=== PATIENT | female | born 1950 | race American Indian/Alaskan Native ===

== ENCOUNTER 2018-09-16 17:01 | Inpatient (IN) | payer MEDICARE ==
[2018-09-16] MEDS ORDERED: NACL 0.9% 1000 ML 1,000 ML IV ONE ×3 (17:05→19:07)
[2018-09-16] MEDS ORDERED: TYLENOL PO STA (17:34)
--- NOTE | 2018-09-16 17:36 | Emergency Department Report ---
ED General Adult HPI - General Chief complaint: Nausea/Vomiting/Diarrhea Stated complaint: NAUSEA/VOMITING/DIARRHEA Time Seen by Provider: 09/16/18 17:27 Source: EMS (ems notes not available at time of chart dictation), RN notes reviewed, old records reviewed Mode of arrival: Stretcher Limitations: Other (nonverbal and is a poor historian) - History of Present Illness Initial comments: This is a 68-year-old female who is not known to this provider previously. Apparently, the patient has a history of stroke. She is apparently nonverbal. Apparently, her home child care provider had indicated that the patient has been having increased weakness, with nausea, vomiting, diarrhea for 2 days. The patient is nonverbal and not able to describe exacerbating or relieving factors. The caregiver is not physically present at this point in time, and is not available for corroborating information currently. Patient nonverbal, not able to describe qualitative nature of her symptoms, exacerbating, radiation, relieving factors. -: unknown Severity scale (0 -10): 0 Quality: other Consistency: other Improves with: other Worsens with: other Associated Symptoms: malaise, nausea/vomiting, weakness - Related Data Home Medications Medication Instructions Recorded Confirmed Last Taken Unobtainable 09/16/18 09/16/18 Unknown Allergies Allergy/AdvReac Type Severity Reaction Status Date / Time No Known Allergies Allergy Unverified 09/16/18 17:05 ED Review of Systems ROS: Stated complaint: NAUSEA/VOMITING/DIARRHEA Other details as noted in HPI Comment: Unobtainable due to pts medical conditions ED Past Medical Hx - Past Medical History Previous Medical History?: Yes Hx Hypertension: Yes Hx CVA: Yes Hx COPD: Yes Hx Dementia: Yes (nonverbal) - Surgical History Past Surgical History?: No Additional Surgical History: unknown - Medications Home Medications: Home Medications Medication Instructions Recorded Confirmed Last Taken Type Unobtainable 09/16/18 09/16/18 Unknown History ED Physical Exam - General Limitations: Physical Limitation, Other General appearance: in no apparent distress - Head Head exam: Present: atraumatic, normocephalic - Eye Eye exam: Present: normal appearance - ENT ENT exam: Present: mucous membranes dry - Neck Neck exam: Present: normal inspection, full ROM. Absent: tenderness, meningi smus - Respiratory Respiratory exam: Present: normal lung sounds bilaterally. Absent: respiratory distress, wheezes, rales, rhonchi, stridor, chest wall tenderness - Cardiovascular Cardiovascular Exam: Present: normal rhythm, tachycardia, normal heart sounds. Absent: systolic murmur, diastolic murmur, rubs, gallop - GI/Abdominal GI/Abdominal exam: Present: soft. Absent: distended, tenderness, guarding, rebound, rigid, pulsatile mass - Rectal Rectal exam: Present: other (chaperoned by nurse Radha Sanders). Absent: normal inspection (on the right lateral gluteus cheek, there is an area of erythema, and questionable vesicular lesion. Compartment soft.) - Extremities Exam Extremities exam: Present: normal inspection, full ROM, other (2+ pulses noted in the bilateral upper, lower extremities. Compartments soft. No long bony tenderness. The pelvis is stable.). Absent: pedal edema, calf tenderness - Back Exam Back exam: Present: normal inspection. Absent: tenderness, CVA tenderness (R), paraspinal tenderness, vertebral tenderness - Neurological Exam Neurological exam: Present: alert, other (nonverbal. Follows commands. Moving right arm, right leg spontaneously. Unable to complete detailed neurologic examination secondary to patient's inability to participate, cooperate with examination.) - Psychiatric Psychiatric exam: Present: normal affect, normal mood - Skin Skin exam: Present: warm ED Course Vital Signs 09/16/18 09/16/18 09/16/18 17:17 17:20 17:40 Temperature 100.4 F H Pulse Rate 111 H Respiratory 18 18 Rate Blood Pressure 124/66 [Right] O2 Sat by Pulse 98 99 Oximetry 09/16/18 18:30 Temperature Pulse Rate 110 H Respiratory 14 Rate Blood Pressure 124/62 [Right] O2 Sat by Pulse 98 Oximetry - Reevaluation(s) Reevaluation #1: 09/16/18 18:27 Differential diagnosis, including not limited to: Enteritis, pneumonia, urinary tract infection, dehydration, electrolyte derangement, zoster Assessment and plan: 68-year-old female, nonverbal, found to be tachycardic, with a low-grade rectal fever of 100.4. Urinalysis suggests urinary tract infection. May have a component of zoster on the right gluteal cheek. This is isolated. It does not have multiple dermatomal distributions. IV fluids, acetaminophen, ceftriaxone ordered. Screening laboratory studies, x-ray of the chest, noncontrast CT scan of the abdomen and pelvis is pending at this time. Reevaluation #2: 09/16/18 18:47 CT scan suggests left lower lobe pneumonia. Given multiple foci of infection, tachycardia, fever, we will admit the patient to the medical service for intravenous antibiotics once her initial laboratory studies have resulted. Blood cultures ordered, additional antibiotics, azithromycin, have been ordered. Reevaluation #3: 09/16/18 19:08 Laboratory studies demonstrated a lactic acidosis, myositis, acute renal insufficiency. Patient meeting sepsis criteria. Hospital physician, Dr. James, paged to arrange admission. Reevaluation #4: 09/16/18 19:32 Dr James to admit ED Medical Decision Making - Lab Data Result diagrams: 09/16/18 18:37 09/16/18 18:37 Vital Signs 09/16/18 09/16/18 09/16/18 17:17 17:20 17:40 Temperature 100.4 F H Pulse Rate 111 H Respiratory 18 18 Rate Blood Pressure 124/66 [Right] O2 Sat by Pulse 98 99 Oximetry Lab Results 09/16/18 Range/Units 17:40 Urine Color Lu (Yellow) Urine Turbidity Cloudy (Clear) Urine pH 5.0 (5.0-7.0) Ur Specific [place] 1.019 (1.003-1.030) Urine Protein 30 mg/dl (Negative) mg/dL Urine Glucose (UA) Neg (Negative) mg/dL Urine Ketones Neg (Negative) mg/dL Urine Blood Sm (Negative) Urine Nitrite Neg (Negative) Urine Bilirubin Neg (Negative) Urine Urobilinogen 4.0 (<2.0) mg/dL Ur Leukocyte Esterase Mod (Negative) Urine WBC (Auto) 84.0 H (0.0-6.0) /HPF Urine RBC (Auto) 19.0 (0.0-6.0) /HPF U Epithel Cells (Auto) 5.0 (0-13.0) /HPF Urine Bacteria (Auto) 3+ (Negative) /HPF Urine Mucus 3+ /HPF - Radiology Data Radiology results: pending, report reviewed, image reviewed interpreted by me: X-ray of the chest shows left lower lobe pneumonia. Referring Physician: SHAWANDA READ Patient Name: DONITA BELTRAN Date of : 1950 Sex: Female Report Date: 2018-09-16 Report Status: Finalized [facility] [address] [place] [address] Cat Scan Report Signed Patient: DONITA BELTRAN MR#: [id number] : 1950 Acct:[id number] Age/Sex: 68 / F ADM Date: 09/16/18 Loc: ED Attending Dr: Ordering Physician: SHAWANDA READ MD Date of Service: 09/16/18 Procedure(s): CT abdomen pelvis wo con Accession Number(s): [id number] cc: SHAWANDA READ MD FINAL REPORT EXAM: CT ABDOMEN PELVIS WO CON HISTORY: fever n/v/d TECHNIQUE: CT examination of the ABDOMEN without IV contrast CT examination of the PELVIS without IV contrast PRIORS: None. FINDINGS: The exam is limited from a paucity of natural intra-abdominal fat, and lack of oral/IV contrast, to separate adjacent organs and structures. The ureters are largely obscured by adjacent soft tissues. Intestinal loops are also difficult to visualize separately.Patient arm in the diagnostic [id number] degrades image quality and limits the examination. Lung base pulmonary emphysema. Large dense consolidation is nonspecific with air bronchograms in the left lower lobe. This may be atelectasis and/or pneumonia. Degenerative change in the regional skeleton. No acute fracture. Normal noncontrast appearance of the liver, visible portion of pancreas, and spleen. Large calcified gallstone in gallbladder lumen. No definite other CT visualization of biliary abnormality. Visible portion of adrenals appear enlarged bilaterally possibly reflecting nonspecific hypertrophy, more on the left. Normal caliber abdominal aorta with moderate to severe calcified atherosclerotic plaque. Normal caliber visible portion of IVC. Normal-appearing right kidney with slight atherosclerotic calcified plaque in the right renal hilus. No right hydronephrosis or right renal calculus. Right ureter obscured. Nonspecific, smoothly marginated, low density, simple appearing left renal lesions are statistically most likely cysts. Nonspecific slight hydronephrosis. Multiple calcifications in left renal hilus may be atherosclerotic. A small renal pelvic calcification cannot be excluded. Left ureter obscured by adjacent anatomy. Abdominal wall appears intact without hernia. No visible retroperitoneal adenopathy or mesenteric mass. Nonspecific distention of the stomach without definite focal lesion. No definite small bowel distention in the abdomen and pelvis. No definite pelvic free fluid. Nonspecific fat stranding in the pelvic mesentery further limits the evaluation and may reflect anasarca. Nonspecific distention of the urinary bladder. Normal-appearing uterus and adnexa. Slight diverticulosis proximal sigmoid and descending colon with slight fat stranding adjacent to the descending colon which may reflect mild diverticulitis. There is also trace free fluid in the left pericolic gutter. Nonspecific prominence of gas and stool in the rectum as well as gas in the transverse colon. This may reflect paralytic ileus possibly with mild constipation. No definite evidence of free air or gross ascites. Normal-appearing cecum and terminal ileum. Appendix not visualized. IMPRESSION: Severely limited examination by low intra-abdominal fat, lack of IV and oral contrast, and arms at the patient's side Slight diverticulosis descending and sigmoid colon. Nonspecific fat stranding and trace free fluid adjacent to the descending colon may reflect mild diverticulitis Lung base emphysema. Large consolidation left lower lobe may be atelectasis and/or pneumonia Large calcified gallstone in gallbladder lumen Suggestion of adrenal hypertrophy, more on the left Left renal hilar calcifications may be atherosclerotic. Small pelvic calcification not excluded. Suggestion of nonspecific slight left hydronephrosis Nonspecific gastric distention may refl ect outlet obstruction and/or gastroparesis Fat stranding in the pelvic mesentery may be scarring or peritonitis. Differential includes anasarca Nondistention of the urinary bladder Nonspecific gas filled prominence of stool in the rectum and transverse colon may reflect paralytic ileus with mild co nstipation Transcribed By: BAL Dictated By: YANIV TAPIA MD Electronically Authenticated By: YANIV TAPIA MD Signed Date/Time: 09/16/18 7982 Critical care attestation.: If time is entered above; I have spent that time in minutes in the direct care of this critically ill patient, excluding procedure time. ED Disposition Clinical Impression: Sepsis Qualifiers: Sepsis type: sepsis due to unspecified organism Qualified Code(s): A41.9 - Sepsis, unspecified organism UTI (urinary tract infection) Qualifiers: Urinary tract infection type: site unspecified Hematuria presence: without hematuria Qualified Code(s): N39.0 - Urinary tract infection, site not specified Pneumonia Qualifiers: Pneumonia type: due to unspecified organism Laterality: left Lung location: lower lobe of lung Qualified Code(s): J18.1 - Lobar pneumonia, unspecified organ ism Disposition: DC-09 OP ADMIT IP TO THIS HOSP Is pt being admited?: Yes Condition: Fair Instructions: Bacterial Pneumonia (ED) [facility] Care [facility] - 3-5 Days
[2018-09-16 18:03] LABS: Bacteria,Urine 3+ /HPF (Negative); Bilirubin,Urine NEG (Negative); Blood,Urine SM (Negative); Color,Urine Amber (Yellow); Mucus,Urine 3+ /HPF
[2018-09-16] MEDS ORDERED: ROCEPHIN/NS 1 GM/50 ML 1 GM/50 ML BAG IV ONE (18:23)
--- NOTE | 2018-09-16 18:44 | Cat Scan Report ---
FINAL REPORT EXAM: CT ABDOMEN PELVIS WO CON HISTORY: fever n/v/d TECHNIQUE: CT examination of the ABDOMEN without IV contrast CT examination of the PELVIS without IV contrast PRIORS: None. FINDINGS: The exam is limited from a paucity of natural intra-abdominal fat, and lack of oral/IV contrast, to s eparate adjacent organs and structures. The ureters are largely obscured by adjacent soft tissues. Intestinal loops are also difficult to visualize separately.Patient arm in the diagnostic field-of-vi ew degrades image quality and limits the examination. Lung base pulmonary emphysema. Large dense consolidation is nonspecific with air bronchograms in the left lower lobe. This may be atelectasis and/or pneumonia. Degenerative change in the regional skeleton. No acute fracture. Normal noncontrast appearance of the liver, visible portion of pancreas, and spleen. Large calcified gallstone in gallbladder lumen. No definite other CT visualization of biliary abnorma lity. Visible portion of adrenals appear enlarged bilaterally possibly reflecting nonspecific hypertrophy, more on the left. Normal caliber abdominal aorta with moderate to severe calcified atherosclerotic plaque. Normal calib er visible portion of IVC. Normal-appearing right kidney with slight atherosclerotic calcified plaque in the right renal hilus. No right hydronephrosis or right renal calculus. Right ureter obscured. Nonspecific, smoothly marginated, low density, simple appearing left renal lesions are statistically most likely cysts. Nonspecific slight hydronephrosis. Multiple calcifications in left renal hilus may be atherosclerotic. A small renal pelvic calcification cannot be excluded. Left ureter obscured by a djacent anatomy. Abdominal wall appears intact without hernia. No visible retroperitoneal adenopathy or mesenteric mas s. Nonspecific distention of the stomach without definite focal lesion. No definite small bowel distention in the abdomen and pelvis. No definite pelvic free fluid. Nonspecific fat stranding in the pelvic mesentery further limits the e valuation and may reflect anasarca. Nonspecific distention of the urinary bladder. Normal-appearing uterus and adnexa. Slight diverticulosis proximal sigmoid and descending colon with slight fat stranding adjacent to the descending colon which may reflect mild diverticulitis. There is also trace free fluid in the left p ericolic gutter. Nonspecific prominence of gas and stool in the rectum as well as gas in the transverse colon. This ma y reflect paralytic ileus possibly with mild constipation. No definite evidence of free air or gross ascites. Normal-appearing cecum and terminal ileum. Appendi x not visualized. IMPRESSION: Severely limited examination by low intra-abdominal fat, lack of IV and oral contrast, and arms at th e patient's side Slight diverticulosis descending and sigmoid colon. Nonspecific fat stranding and trace free fluid ad jacent to the descending colon may reflect mild diverticulitis Lung base emphysema. Large consolidation left lower lobe may be atelectasis and/or pneumonia Large calcified gallstone in gallbladder lumen Suggestion of adrenal hypertrophy, more on the left Left renal hilar calcifications may be atherosclerotic. Small pelvic calcification not excluded. Sugg estion of nonspecific slight left hydronephrosis Nonspecific gastric distention may reflect outlet obstruction and/or gastroparesis Fat stranding in the pelvic mesentery may be scarring or peritonitis. Differential includes anasarca Nondistention of the urinary bladder Nonspecific gas filled prominence of stool in the rectum and transverse colon may reflect paralytic i leus with mild constipation
[2018-09-16 18:48] LABS: Hematocrit 49.1 % (30.3-42.9); Hemoglobin 15.5 gm/dl (10.1-14.3); Mean Corpuscular HGB Conc 32 % (30-34); Mean Corpuscular Volume 83 fl (79-97); Platelet Count 197 K/mm3 (140-440); Red Blood Count 5.89 M/mm3 (3.65-5.03); Red Cell Distribution Width 14.8 % (13.2-15.2)
[2018-09-16] MEDS ORDERED: TYLENOL PR ONE ×2 (18:57→18:59)
[2018-09-16 19:03] LABS: Albumin 2.6 g/dL (3.9-5)
[2018-09-16 19:25] LABS: Total Cells Counted 100
[2018-09-16 19:26] LABS: Basophils % (Manual) 0 % (0.0-1.8); Eosinophils % (Manual) 0 % (0.0-4.3); Myelocytes # (Manual) 0.9 K/mm3
[2018-09-16 19:27] LABS: Anisocytosis 1+; Ovalocytes Few; Platelet Estimate Consistent w Auto; Poikilocytosis 1+; Target Cells Few
[2018-09-16] MEDS ORDERED: ZITHROMAX 500 MG in NACL 0.9% 250ML 250 ML IV ONE (19:47)
--- NOTE | 2018-09-16 19:54 | XRay Report ---
FINAL REPORT EXAM: XR CHEST 1V AP HISTORY: fever n/v/d TECHNIQUE: AP portable view of the chest. PRIORS: None. FINDINGS: There is atherosclerotic calcification in the thoracic aorta. Otherwise the cardiomediastinal silhoue tte appears normal. There is a left lower lobe airspace infiltrate and blunting of the left costophre joaquim angle. There is thoracic spondylosis with multiple bridging syndesmophytes. IMPRESSION: Left lower lobe airspace infiltrate consistent with pneumonia. Likely small pleural effusion.
--- NOTE | 2018-09-17 06:47 | Event Note ---
Date: 09/16/18 See dictated H/p in reports Sepsis PNA UTI
[2018-09-17] MEDS ORDERED: DILAUDID IV PRN (06:54)
[2018-09-17] MEDS ORDERED: TYLENOL PO PRN (06:54)
[2018-09-17] MEDS ORDERED: SODIUM CHLORIDE FLUSH SYRINGE 10 ML IV PRN (06:54)
[2018-09-17] MEDS ORDERED: ZOFRAN IV PRN (06:54)
[2018-09-17] MEDS ORDERED: D5/0.45NS 1,000 ML IV SCH (07:00)
[2018-09-17] MEDS ORDERED: D5NS 1,000 ML IV SCH (07:00)
--- NOTE | 2018-09-17 07:27 | History and Physical Report ---
CHIEF COMPLAINT: Increased weakness with nausea, vomiting, and diarrhea for 2 days. HISTORY OF PRESENT ILLNESS: A 68-year-old with cerebrovascular accident resulting in aphasia, brought in by software team leader for increasing weakness, nausea, vomiting, and diarrhea of 2 days' duration. The patient is not able to give much history. The patient has generalized weakness and not to her baseline, being alert and oriented x 2. PAST MEDICAL HISTORY: Significant for hypertension and cerebrovascular accident, COPD, and dementia. PAST SURGICAL HISTORY: Not known. FAMILY HISTORY: Unavailable. SOCIAL HISTORY: Does not smoke. No alcohol, no recreational drugs. REVIEW OF SYSTEMS: Significant for generalized weakness and more lethargic. Otherwise, review of systems negative. PHYSICAL EXAMINATION: GENERAL: Elderly female, alert, lethargic. VITAL SIGNS: Pulse is 111, temperature is 100.4, respirations are 18, blood pressure 124/69. HEENT: Unremarkable. NECK: Supple, no lymphadenopathy, no thyromegaly. LUNGS: Scattered rhonchi bilaterally. CARDIOVASCULAR: S1, S2 heard. No gallop, no murmur, no rub. Apical impulse in left fifth intercostal space and midclavicular line. ABDOMEN: Soft and benign. No hepatosplenomegaly. No guarding, no rigidity. Hernial orifices are normal. EXTREMITIES: Good pedal pulses. No pedal edema. LABORATORY DATA: Significant for white count of 22,700, H and H is 15.5 and 49.1, platelet count is 197,000. Lactic acid is 5.2 and 3.9. Sodium is 147, potassium 4.5, BUN and creatinine is 46 and 1.6. Urine shows WBC of 84. Abdominal CAT scan shows slight diverticulosis, lung base emphysema, large consolidation left lower lobe, which may be atelectasis versus pneumonia, large calcified gallstone. Chest x-ray, left lower lobe pneumonia. Labs are significant for white count of 22,700, H and H of 15.5 and 49.1. BUN and creatinine of 46 and 1.6, sodium of 147. Total CK is 1686. Urine WBC 84. ASSESSMENT AND PLAN: 1. Sepsis secondary to pneumonia and urinary tract infection. The patient is not hypotensive. Lactic acid is high. We will treat the sepsis. The patient initiated on ceftriaxone and Zithromax for covering for pneumonia and the urinary tract infection. 2. Hypernatremia. IV fluids. 3. Left lower lobe pneumonia. The patient initiated on IV antibiotics. 4. Acute kidney injury, possible vasomotor nephropathy. IV fluids and monitor creatinine. 5. Deep venous thrombosis prophylaxis, Lovenox 30 mg subcutaneous daily. JOB# [id number] AL/FRANCHESKA MTDD
[2018-09-17 07:45] LABS: Hematocrit 40.6 % (30.3-42.9); Hemoglobin 13.2 gm/dl (10.1-14.3); Mean Corpuscular HGB Conc 33 % (30-34); Mean Corpuscular Volume 82 fl (79-97); Platelet Count 190 K/mm3 (140-440); Red Blood Count 4.97 M/mm3 (3.65-5.03); Red Cell Distribution Width 14.8 % (13.2-15.2)
[2018-09-17 08:06] LABS: Calcium 8.5 mg/dL (8.4-10.2)
[2018-09-17 08:27] LABS: Basophils % (Manual) 0 % (0.0-1.8); Eosinophils % (Manual) 0 % (0.0-4.3); Total Cells Counted 100
[2018-09-17 08:30] LABS: Anisocytosis 1+; Dohle Bodies 1+; Ovalocytes Few; Platelet Estimate Consistent w Auto; Poikilocytosis 1+; Target Cells Few; Toxic Vacuolation Few
[2018-09-17] MEDS: ROCEPHIN/NS 2 GM/100 ML 2 GM/100 ML BAG IV SCH (08:55)
[2018-09-17] MEDS: PEPCID PO SCH ×2 (08:57→10:00)
[2018-09-17] MEDS: ZITHROMAX 500 MG in NACL 0.9% 250ML 250 ML IV SCH ×2 (08:57→10:00)
--- NOTE | 2018-09-17 08:57 | Progress Note ---
Assessment and Plan Assessment and plan: Per Admission record patient is a 68-year-old male with history of CVA and resultant aphasia who presented with increased weakness nausea vomiting and diarrhea for 2 days duration was noted to have acute cystitis and left lower lobe pneumonia with sepsis and admitted for same reason. Severe sepsis Acute cystitis Nausea/vomiting ?acute gastroenteritis Left lower lobe pneumonia- Left large consolidation Emphysema Aphasia muscle result of prior CVA Acute kidney injury secondary to visible due to nephropathy Hypernatremia ?Ileus Severe Protien malnutrition Diverticulosis ?Diverticulitis Large Calcified Gallstone Mild left Hydronephrosis Rhabdomylysis OSTEOPENIA Plan Continue supportive care Obtain xray of left hip to ensure no fracture Will ask surgery evaluation in regards to gallstone and illeus in the setting of sepsis Monitor Urine output and awit urine culture AM LABS, including creatinine kinase And sodium level calcium and vitamin D on discharge 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 GENERAL: The patient appeared cachetic and very lathergic appearing. Vital sig ns as documented. HEAD: No signs of head trauma. EYES: Pupils are equal. Extraocular motions intact. EARS: Hearing grossly intact. MOUTH: Oropharynx is normal. NECK: No adenopathy, no JVD. CHEST: Chest with clear breath sounds bilaterally. No wheezes, rales, or rhonchi. CARDIAC: Regular rate and rhythm. S1 and S2, without murmurs, gallops, or rubs. VASCULAR: No Edema. Peripheral pulses normal and equal in all extremities. ABDOMEN: Soft, without detectable tenderness. No sign of distention. No rebound or guarding, and no masses palpated. Bowel Sounds normal. MUSCULOSKELETAL: Good range of motion of all major joints. Extremities without clubbing, cyanosis or edema. NEUROLOGIC EXAM: Alert and oriented x 3. No focal sensory or strength deficits. Non verbal but mouthing words. PSYCHIATRIC: Mood normal. SKIN: LEFT HIP ERYTHEMA. - Constitutional Vitals: Temp Pulse Resp BP Pulse Ox 99.9 F H 122 H 20 121/75 93 09/17/18 07:47 09/17/18 07:47 09/17/18 07:47 09/17/18 07:47 09/17/18 07:47 Results - Labs CBC & Chem 7: 09/17/18 07:27 09/17/18 14:27 Labs: Laboratory Last Values WBC 26.5 K/mm3 (4.5-11.0) H 09/17/18 07:27 RBC 4.97 M/mm3 (3.65-5.03) 09/17/18 07:27 Hgb 13.2 gm/dl (10.1-14.3) 09/17/18 07:27 Hct 40.6 % (30.3-42.9) D 09/17/18 07:27 MCV 82 fl (79-97) 09/17/18 07:27 MCH 27 pg (28-32) L 09/17/18 07:27 MCHC 33 % (30-34) 09/17/18 07:27 RDW 14.8 % (13.2-15.2) 09/17/18 07:27 Plt Count 190 K/mm3 (140-440) 09/17/18 07:27 Add Manual Diff Complete 09/17/18 07:27 Total Counted 100 09/17/18 07:27 Seg Neutrophils % Janitor And Cleaner 09/17/18 07:27 Seg Neuts % (Manual) 89.0 % (40.0-70.0) H 09/17/18 07:27 Band Neutrophils % 0 % 09/17/18 07:27 Lymphocytes % (Manual) 7.0 % (13.4-35.0) L 09/17/18 07:27 Reactive Lymphs % (Man) 0 % 09/17/18 07:27 Monocytes % (Manual) 4.0 % (0.0-7.3) 09/17/18 07:27 Eosinophils % (Manual) 0 % (0.0-4.3) 09/17/18 07:27 Basophils % (Manual) 0 % (0.0-1.8) 09/17/18 07:27 Metamyelocytes % 0 % 09/17/18 07:27 Myelocytes % 0 % 09/17/18 07:27 Promyelocytes % 0 % 09/17/18 07:27 Blast Cells % 0 % 09/17/18 07:27 Nucleated RBC % Not Reportable 09/17/18 07:27 Seg Neutrophils # Man 23.6 K/mm3 (1.8-7.7) H 09/17/18 07:27 Band Neutrophils # 0.0 K/mm3 09/17/18 07:27 Lymphocytes # (Manual) 1.9 K/mm3 (1.2-5.4) 09/17/18 07:27 Abs React Lymphs (Man) 0.0 K/mm3 09/17/18 07:27 Monocytes # (Manual) 1.1 K/mm3 (0.0-0.8) H 09/17/18 07:27 Eosinophils # (Manual) 0.0 K/mm3 (0.0-0.4) 09/17/18 07:27 Basophils # (Manual) 0.0 K/mm3 (0.0-0.1) 09/17/18 07:27 Metamyelocytes # 0.0 K/mm3 09/17/18 07:27 Myelocytes # 0.0 K/mm3 09/17/18 07:27 Promyelocytes # 0.0 K/mm3 09/17/18 07:27 Blast Cells # 0.0 K/mm3 09/17/18 07:27 WBC Morphology Not Reportable 09/17/18 07:27 Hypersegmented Neuts Not Reportable 09/17/18 07:27 Hyposegmented Neuts Not Reportable 09/17/18 07:27 Hypogranular Neuts Not Reportable 09/17/18 07:27 Smudge Cells Not Reportable 09/17/18 07:27 Toxic Granulation Not Reportable 09/17/18 07:27 Toxic Vacuolation Few 09/17/18 07:27 Dohle Bodies 1+ 09/17/18 07:27 Pelger-Huet Anomaly Not Reportable 09/17/18 07:27 Martha Rods Not Reportable 09/17/18 07:27 Platelet Estimate Consistent w auto 09/17/18 07:27 Clumped Platelets Not Reportable 09/17/18 07:27 Plt Clumps, EDTA Not Reportable 09/17/18 07:27 Large Platelets Not Reportable 09/17/18 07:27 Giant Platelets Not Reportable 09/17/18 07:27 Platelet Satelliting Not Reportable 09/17/18 07:27 Plt Morphology Comment Not Reportable 09/17/18 07:27 RBC Morphology Not Reportable 09/17/18 07:27 Dimorphic RBCs Not Reportable 09/17/18 07:27 Polychromasia Not Reportable 09/17/18 07:27 Hypochromasia Not Reportable 09/17/18 07:27 Poikilocytosis 1+ 09/17/18 07:27 Anisocytosis 1+ 09/17/18 07:27 Microcytosis Not Reportable 09/17/18 07:27 Macrocytosis Not Reportable 09/17/18 07:27 Spherocytes Not Reportable 09/17/18 07:27 Pappenheimer Bodies Not Reportable 09/17/18 07:27 Sickle Cells Not Reportable 09/17/18 07:27 Target Cells Few 09/17/18 07:27 Tear Drop Cells Not Reportable 09/17/18 07:27 Ovalocytes Few 09/17/18 07:27 Helmet Cells Not Reportable 09/17/18 07:27 [place] Bodies Not Reportable 09/17/18 07:27 [place] Rings Not Reportable 09/17/18 07:27 [place] Cells Not Reportable 09/17/18 07:27 Bite Cells Not Reportable 09/17/18 07:27 Crenated Cell Not Reportable 09/17/18 07:27 Elliptocytes Not Reportable 09/17/18 07:27 Acanthocytes (Spur) Not Reportable 09/17/18 07:27 Rouleaux Not Reportable 09/17/18 07:27 Hemoglobin C Crystals Not Reportable 09/17/18 07:27 Schistocytes Not Reportable 09/17/18 07:27 Malaria parasites Not Reportable 09/17/18 07:27 Brandin Bodies Not Reportable 09/17/18 07:27 Hem Pathologist Commnt No 09/17/18 07:27 Sodium 151 mmol/L (137-145) H 09/17/18 07:27 Potassium 3.6 mmol/L (3.6-5.0) 09/17/18 07:27 Chloride 114.7 mmol/L (98-107) H 09/17/18 07:27 Carbon Dioxide 20 mmol/L (22-30) L 09/17/18 07:27 Anion Gap 20 mmol/L 09/17/18 07:27 BUN 50 mg/dL (7-17) H 09/17/18 07:27 Creatinine 1.4 mg/dL (0.7-1.2) H 09/17/18 07:27 Estimated GFR 45 ml/min 09/17/18 07:27 BUN/Creatinine Ratio 36 % 09/17/18 07:27 Glucose 111 mg/dL (65-100) H 09/17/18 07:27 Hemoglobin A1c 5.2 % (4-6) 09/17/18 07:27 Lactic Acid 1.60 mmol/L (0.7-2.0) 09/17/18 05:41 Calcium 8.5 mg/dL (8.4-10.2) 09/17/18 07:27 Magnesium 1.90 mg/dL (1.7-2.3) 09/16/18 18:37 Total Bilirubin 0.90 mg/dL (0.1-1.2) 09/16/18 18:37 AST 80 units/L (5-40) H 09/16/18 18:37 ALT 26 units/L (7-56) 09/16/18 18:37 Alkaline Phosphatase 62 units/L (35-129) 09/16/18 18:37 Total Creatine Kinase 1686 units/L (30-135) H 09/16/18 18:37 Total Protein 7.1 g/dL (6.3-8.2) 09/16/18 18:37 Albumin 2.6 g/dL (3.9-5) L 09/16/18 18:37 Albumin/Globulin Ratio 0.6 % 09/16/18 18:37 Urine Color Lu (Yellow) 09/16/18 17:40 Urine Turbidity Cloudy (Clear) 09/16/18 17:40 Urine pH 5.0 (5.0-7.0) 09/16/18 17:40 Ur Specific [place] 1.019 (1.003-1.030) 09/16/18 17:40 Urine Protein 30 mg/dl mg/dL (Negative) 09/16/18 17:40 Urine Glucose (UA) Neg mg/dL (Negative) 09/16/18 17:40 Urine Ketones Neg mg/dL (Negative) 09/16/18 17:40 Urine Blood Sm (Negative) 09/16/18 17:40 Urine Nitrite Neg (Negative) 09/16/18 17:40 Urine Bilirubin Neg (Negative) 09/16/18 17:40 Urine Urobilinogen 4.0 mg/dL (<2.0) 02/12/19 17:40 Ur Leukocyte Esterase Mod (Negative) 09/16/18 17:40 Urine WBC (Auto) 84.0 /HPF (0.0-6.0) H 09/16/18 17:40 Urine RBC (Auto) 19.0 /HPF (0.0-6.0) 09/16/18 17:40 U Epithel Cells (Auto) 5.0 /HPF (0-13.0) 09/16/18 17:40 Urine Bacteria (Auto) 3+ /HPF (Negative) 09/16/18 17:40 Urine Mucus 3+ /HPF 09/16/18 17:40 - Imaging and Cardiology CT scan - abdomen: image reviewed (GALLSTONES, DIVERTICULOSIS AND POSSIBLE DIVERTICULITIS)
[2018-09-17] MEDS: SODIUM CHLORIDE FLUSH SYRINGE 10 ML IV SCH ×2 (10:00→23:07)
--- NOTE | 2018-09-17 10:22 | XRay Report ---
LEFT HIP, 2 views: History: Pain. Correlation is made with the CT abdomen and pelvis performed yesterday. Osteopenia is evident. There is normal articulation of the left hip. No evidence for fracture, dislocation or bone lesion. No significant joint pathology. The soft tissues are unremarkable. IMPRESSION: Osteopenia. No acute abnormality is detected.
[2018-09-17] MEDS: D5/0.45NS 1,000 ML IV SCH (11:23)
--- NOTE | 2018-09-17 11:56 | Consultation ---
History of Present Illness - Reason for Consult Consult date: 09/17/18 Sepsis, pneumonia, UTI Requesting physician: GARY MOYER - History of Present Illness The patient is a 68-year-old female with previous stroke and resultant aphasia was brought to the emergency room yesterday with increasing weakness, nausea, vomiting and diarrhea for 2 days. She is completely nonverbal at this time and unable to provide any history. History was obtained by chart review and by discussing the patient's RN and hospitalist. Upon evaluation in the emergency room, there was concern for sepsis given a fever as well as leukocytosis, lactic acidosis and tachycardia. Chest x-ray and CT abdomen without contrast were concerning for left lower lobe pneumonia. Patient was admitted to the hospital, given IV fluid resuscitation, started empirically on ceftriaxone and azithromyc in. Infectious diseases was consulted for antibiotic recommendations. Currently, patient is lying in bed preferring her left side. Does not seem to be in any distress. Review of Systems: Cannot be obtained due to patient's aphasia and underlying mental status. Medications and Allergies Allergies Allergy/AdvReac Type Severity Reaction Status Date / Time No Known Allergies Allergy Unverified 09/16/18 17:05 Home Medications Medication Instructions Recorded Confirmed Last Taken Type Unobtainable 09/16/18 09/16/18 Unknown History Active Meds: Active Medications Acetaminophen (Tylenol) 650 mg PO Q4H PRN PRN Reason: Pain MILD(1-3)/Fever >100.5/[place] Enoxaparin Sodium (Lovenox) 30 mg SUB-Q QDAY@2200 [facility]Y Famotidine (Pepcid) 20 mg PO QAM [facility] Last Admin: 09/17/18 08:57 Dose: 20 mg Documented by: Hydromorphone HCl (Dilaudid) 0.5 mg IV Q3H PRN PRN Reason: Pain , Severe (7-10) Azithromycin 500 mg/ Sodium (Chloride) 250 mls @ 250 mls/hr IV Q24HR [facility] Last Admin: 09/17/18 08:57 Dose: 250 mls/hr Documented by: Ceftriaxone Sodium (Rocephin/Ns 2 Gm/100 Ml) 2 gm in 100 mls @ 200 mls/hr IV Q24H [facility]; Protocol Last Admin: 09/17/18 08:55 Dose: 200 mls/hr Documented by: Dextrose/Sodium Chloride (D5/0.45ns) 1,000 mls @ 75 mls/hr IV DIRECT [facility] Last Admin: 09/17/18 11:23 Dose: 75 mls/hr Documented by: Ondansetron HCl (Zofran) 4 mg IV Q8H PRN PRN Reason: Nausea And Vomiting Sodium Chloride (Sodium Chloride Flush Syringe 10 Ml) 10 ml IV BID GERRY Sodium Chloride (Sodium Chloride Flush Syringe 10 Ml) 10 ml IV PRN PRN PRN Reason: LINE FLUSH Physical Examination - Physical Exam Narrative exam: Physical Exam: Constitutional: awake, alert. No acute distress. Cachexia + Head, Ears, Nose: Normocephalic, atraumatic. External ears, nose normal Eyes: Conjunctivae/corneas clear. No icterus. No ptosis. Neck: Supple, no meningeal signs Oral: unable to examine Cardiovascular: S1, S2 normal. Respiratory: few left basal crackles GI: Soft, non-tender; bowel sounds normal. No peritoneal signs Musculoskeletal: No pedal edema, no cyanosis. Skin: No rash or abscess Hem/Lymphatic: No palpable cervical or supraclavicular nodes. No lymphangitis Psych: no agitation Neurological: Awake, alert, non verbal - Constitutional Vitals: Vital Signs Temp Pulse Resp BP Pulse Ox 99.9 F H 122 H 20 121/75 93 09/17/18 07:47 09/17/18 07:47 09/17/18 07:47 09/17/18 07:47 09/17/18 07:47 Temperature -Last 24 Hours Temperature 99.9 F Temperature 98.6 F Temperature 98.4 F Temperature 100.4 F Results - Labs CBC & Chem 7: 09/17/18 07:27 09/17/18 07:27 Labs: Abnormal lab results 09/16/18 09/16/18 09/16/18 Range/Units 17:40 18:37 18:37 WBC 22.7 H (4.5-11.0) K/mm3 RBC 5.89 H (3.65-5.03) M/mm3 Hgb 15.5 H (10.1-14.3) gm/dl Hct 49.1 H (30.3-42.9) % MCH 26 L (28-32) pg Seg Neuts % (Manual) 86.0 H (40.0-70.0) % Lymphocytes % (Manual) 6.0 L (13.4-35.0) % Seg Neutrophils # Man 19.5 H (1.8-7.7) K/mm3 Monocytes # (Manual) (0.0-0.8) K/mm3 Sodium 147 H (137-145) mmol/L Chloride 107.6 H (98-107) mmol/L Carbon Dioxide (22-30) mmol/L BUN 46 H (7-17) mg/dL Creatinine 1.6 H (0.7-1.2) mg/dL Glucose 113 H (65-100) mg/dL Lactic Acid (0.7-2.0) mmol/L AST 80 H (5-40) units/L Total Creatine Kinase (30-135) units/L Albumin 2.6 L (3.9-5) g/dL Urine WBC (Auto) 84.0 H (0.0-6.0) /HPF 09/16/18 09/16/18 09/16/18 Range/Units 18:37 18:37 20:39 WBC (4.5-11.0) K/mm3 RBC (3.65-5.03) M/mm3 Hgb (10.1-14.3) gm/dl Hct (30.3-42.9) % MCH (28-32) pg Seg Neuts % (Manual) (40.0-70.0) % Lymphocytes % (Manual) (13.4-35.0) % Seg Neutrophils # Man (1.8-7.7) K/mm3 Monocytes # (Manual) (0.0-0.8) K/mm3 Sodium (137-145) mmol/L Chloride (98-107) mmol/L Carbon Dioxide (22-30) mmol/L BUN (7-17) mg/dL Creatinine (0.7-1.2) mg/dL Glucose (65-100) mg/dL Lactic Acid 5.20 H* 4.20 H* (0.7-2.0) mmol/L AST (5-40) units/L Total Creatine Kinase 1686 H (30-135) units/L Albumin (3.9-5) g/dL Urine WBC (Auto) (0.0-6.0) /HPF 09/16/18 09/17/18 09/17/18 Range/Units 22:38 07:27 07:27 WBC 26.5 H (4.5-11.0) K/mm3 RBC (3.65-5.03) M/mm3 Hgb (10.1-14.3) gm/dl Hct (30.3-42.9) % MCH 27 L (28-32) pg Seg Neuts % (Manual) 89.0 H (40.0-70.0) % Lymphocytes % (Manual) 7.0 L (13.4-35.0) % Seg Neutrophils # Man 23.6 H (1.8-7.7) K/mm3 Monocytes # (Manual) 1.1 H (0.0-0.8) K/mm3 Sodium 151 H (137-145) mmol/L Chloride 114.7 H (98-107) mmol/L Carbon Dioxide 20 L (22-30) mmol/L BUN 50 H (7-17) mg/dL Creatinine 1.4 H (0.7-1.2) mg/dL Glucose 111 H (65-100) mg/dL Lactic Acid 3.90 H* (0.7-2.0) mmol/L AST (5-40) units/L Total Creatine Kinase (30-135) units/L Albumin (3.9-5) g/dL Urine WBC (Auto) (0.0-6.0) /HPF - Imaging and Cardiology Chest x-ray: report reviewed, image reviewed (LLL pneumonia) CT scan - abdomen: report reviewed, image reviewed (showed LLL pneumonia in lower lung cuts) Assessment and Plan Cultures: 09/16/2018 urine culture: Mixed growth 09/16/2018 blood culture: In progress A/P: 68-year-old female with previous stroke and resultant aphasia admitted with: 1) Severe sepsis likely secondary to left lower lobe pneumonia: Patient does have a aphasia and with her prior stroke, aspiration is certainly possible e specially since the patient seems to be preferring to lay on her left side and reportedly came with vomiting. 2) Acute respiratory failure: Secondary to pneumonia. 3) Urinary tract infection: Follow up urine cultures. Continue ceftriaxone for now. 4) Large calcific gallstone: Patient without any specific right upper quadrant tenderness on exam or LFT derangement. Will obtain right upper quadrant ultrasound. 5) TORI: monitor creatinine. 6) N/V/D: monitor for now. Recs: Continue ceftriaxone and azithromycin Flagyl added Right upper quadrant ultrasound ordered Follow-up culture results and clinical course consider speech/swallow eval Plan d/w Dr. Chivo Paris MD [facility] C: [phone] O: [phone] F: [phone]
--- NOTE | 2018-09-17 12:31 | Consultation ---
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 Patient cannot provide any history and indian blanket weaver is not at bedside. All history is obtained from chart. Pt was febrile and tachycardic in ER. She was admitted for treatment of sepsis, UTI, and PNA. Ct scan of abdomen showed large gallstone in gallbladder. Surgery is consulted for evaluation. Per tech at bedside, patient was able to feed herself breakfast without n/v. 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) Family history: no significant family history Medications and Allergies Allergies Allergy/AdvReac Type Severity Reaction Status Date / Time No Known Allergies Allergy Unverified 09/16/18 17:05 Home Medications Medication Instructions Recorded Confirmed Last Taken Type Unobtainable 09/16/18 09/16/18 Unknown History Active Meds: Active Medications Acetaminophen (Tylenol) 650 mg PO Q4H PRN PRN Reason: Pain MILD(1-3)/Fever >100.5/[place] Enoxaparin Sodium (Lovenox) 30 mg SUB-Q QDAY@2200 GERRY Famotidine (Pepcid) 20 mg PO QAM [facility] Last Admin: 09/17/18 10:00 Dose: Not Given Documented by: Hydromorphone HCl (Dilaudid) 0.5 mg IV Q3H PRN PRN Reason: Pain , Severe (7-10) Azithromycin 500 mg/ Sodium (Chloride) 250 mls @ 250 mls/hr IV Q24HR [facility] Last Admin: 09/17/18 10:00 Dose: Not Given Documented by: Ceftriaxone Sodium (Rocephin/Ns 2 Gm/100 Ml) 2 gm in 100 mls @ 200 mls/hr IV Q24H [facility]; Protocol Last Admin: 09/17/18 08:55 Dose: 200 mls/hr Documented by: Dextrose/Sodium Chloride (D5/0.45ns) 1,000 mls @ 75 mls/hr IV DIRECT [facility] Last Admin: 09/17/18 11:23 Dose: 75 mls/hr Documented by: Metronidazole (Flagyl 500 Mg/100 Ml) 500 mg in 100 mls @ 100 mls/hr IV Q8H [facility]; Protocol Ondansetron HCl (Zofran) 4 mg IV Q8H PRN PRN Reason: Nausea And Vomiting Sodium Chloride (Sodium Chloride Flush Syringe 10 Ml) 10 ml IV BID [facility] Last Admin: 09/17/18 10:00 Dose: Not Given Documented by: Sodium Chloride (Sodium Chloride Flush Syringe 10 Ml) 10 ml IV PRN PRN PRN Reason: LINE FLUSH Review of Systems ROS unobtainable: due to mental status Exam Vital Signs Pulse Resp BP Pulse Ox 111 H 18 124/66 98 09/16/18 17:17 09/16/18 17:17 09/16/18 17:17 09/16/18 17:17 Narrative exam: Gen; Awake and alert. Nods and shakes head to yes/no questions appropriately. Nonverbal. Cachectic ENT: no scleral icterus or conjunctival pallor. CV: s1, S2+ resp: even and unlabored Abd; soft, ND, NT. large amount of loose skin Ext; no c/c/e Results - Labs 09/17/18 07:27 09/17/18 07:27 Abnormal lab results 09/16/18 09/16/18 09/16/18 Range/Units 17:40 18:37 18:37 WBC 22.7 H (4.5-11.0) K/mm3 RBC 5.89 H (3.65-5.03) M/mm3 Hgb 15.5 H (10.1-14.3) gm/dl Hct 49.1 H (30.3-42.9) % MCH 26 L (28-32) pg Seg Neuts % (Manual) 86.0 H (40.0-70.0) % Lymphocytes % (Manual) 6.0 L (13.4-35.0) % Seg Neutrophils # Man 19.5 H (1.8-7.7) K/mm3 Monocytes # (Manual) (0.0-0.8) K/mm3 Sodium 147 H (137-145) mmol/L Chloride 107.6 H (98-107) mmol/L Carbon Dioxide (22-30) mmol/L BUN 46 H (7-17) mg/dL Creatinine 1.6 H (0.7-1.2) mg/dL Glucose 113 H (65-100) mg/dL Lactic Acid (0.7-2.0) mmol/L AST 80 H (5-40) units/L Total Creatine Kinase (30-135) units/L Albumin 2.6 L (3.9-5) g/dL Urine WBC (Auto) 84.0 H (0.0-6.0) /HPF 09/16/18 09/16/18 09/16/18 Range/Units 18:37 18:37 20:39 WBC (4.5-11.0) K/mm3 RBC (3.65-5.03) M/mm3 Hgb (10.1-14.3) gm/dl Hct (30.3-42.9) % MCH (28-32) pg Seg Neuts % (Manual) (40.0-70.0) % Lymphocytes % (Manual) (13.4-35.0) % Seg Neutrophils # Man (1.8-7.7) K/mm3 Monocytes # (Manual) (0.0-0.8) K/mm3 Sodium (137-145) mmol/L Chloride (98-107) mmol/L Carbon Dioxide (22-30) mmol/L BUN (7-17) mg/dL Creatinine (0.7-1.2) mg/dL Glucose (65-100) mg/dL Lactic Acid 5.20 H* 4.20 H* (0.7-2.0) mmol/L AST (5-40) units/L Total Creatine Kinase 1686 H (30-135) units/L Albumin (3.9-5) g/dL Urine WBC (Auto) (0.0-6.0) /HPF 09/16/18 09/17/18 09/17/18 Range/Units 22:38 07:27 07:27 WBC 26.5 H (4.5-11.0) K/mm3 RBC (3.65-5.03) M/mm3 Hgb (10.1-14.3) gm/dl Hct (30.3-42.9) % MCH 27 L (28-32) pg Seg Neuts % (Manual) 89.0 H (40.0-70.0) % Lymphocytes % (Manual) 7.0 L (13.4-35.0) % Seg Neutrophils # Man 23.6 H (1.8-7.7) K/mm3 Monocytes # (Manual) 1.1 H (0.0-0.8) K/mm3 Sodium 151 H (137-145) mmol/L Chloride 114.7 H (98-107) mmol/L Carbon Dioxide 20 L (22-30) mmol/L BUN 50 H (7-17) mg/dL Creatinine 1.4 H (0.7-1.2) mg/dL Glucose 111 H (65-100) mg/dL Lactic Acid 3.90 H* (0.7-2.0) mmol/L AST (5-40) units/L Total Creatine Kinase (30-135) units/L Albumin (3.9-5) g/dL Urine WBC (Auto) (0.0-6.0) /HPF Diabetes panel 09/16/18 09/17/18 09/17/18 Range/Units 18:37 07:27 07:27 Sodium 147 H 151 H (137-145) mmol/L Potassium 4.5 3.6 (3.6-5.0) mmol/L Chloride 107.6 H 114.7 H (98-107) mmol/L Carbon Dioxide 23 20 L (22-30) mmol/L BUN 46 H 50 H (7-17) mg/dL Creatinine 1.6 H 1.4 H (0.7-1.2) mg/dL Glucose 113 H 111 H (65-100) mg/dL Hemoglobin A1c 5.2 (4-6) % Calcium 9.0 8.5 (8.4-10.2) mg/dL AST 80 H (5-40) units/L ALT 26 (7-56) units/L Alkaline Phosphatase 62 (35-129) units/L Total Protein 7.1 (6.3-8.2) g/dL Albumin 2.6 L (3.9-5) g/dL Calcium panel 09/16/18 09/17/18 Range/Units 18:37 07:27 Calcium 9.0 8.5 (8.4-10.2) mg/dL Albumin 2.6 L (3.9-5) g/dL Pituitary panel 09/16/18 09/17/18 Range/Units 18:37 07:27 Sodium 147 H 151 H (137-145) mmol/L Potassium 4.5 3.6 (3.6-5.0) mmol/L Chloride 107.6 H 114.7 H (98-107) mmol/L Carbon Dioxide 23 20 L (22-30) mmol/L BUN 46 H 50 H (7-17) mg/dL Creatinine 1.6 H 1.4 H (0.7-1.2) mg/dL Glucose 113 H 111 H (65-100) mg/dL Calcium 9.0 8.5 (8.4-10.2) mg/dL Adrenal panel 09/16/18 09/17/18 Range/Units 18:37 07:27 Sodium 147 H 151 H (137-145) mmol/L Potassium 4.5 3.6 (3.6-5.0) mmol/L Chloride 107.6 H 114.7 H (98-107) mmol/L Carbon Dioxide 23 20 L (22-30) mmol/L BUN 46 H 50 H (7-17) mg/dL Creatinine 1.6 H 1.4 H (0.7-1.2) mg/dL Glucose 113 H 111 H (65-100) mg/dL Calcium 9.0 8.5 (8.4-10.2) mg/dL Total Bilirubin 0.90 (0.1-1.2) mg/dL AST 80 H (5-40) units/L ALT 26 (7-56) units/L Alkaline Phosphatase 62 (35-129) units/L Total Protein 7.1 (6.3-8.2) g/dL Albumin 2.6 L (3.9-5) g/dL - Imaging CT scan - abdomen: report reviewed, image reviewed CT scan - pelvis: report reviewed, image reviewed Assessment and Plan 68 yo F with 1. sepsis 2. UTI 3. PNA 4. cholelithiasis 5. malnutrition - albumin 2.6 6. TORI 7. hypernatremia Plan: 1. continue current diet, IVF 2. recommend nutrition c/s 3. recommend speech therapy c/s - agree with Dr. Paris, pt may have aspirated 4. abd u/s ordered by ID - will follow up results 5. DVT ppx 6. IV abx per 1' 7. Based on patient's clinical history, labs, imaging and physical exam it is unlikely that her sepsis is related to the gallbladder. She is tolerating a diet today and does not have RUQ pain. Will f/u ultrasound and make further recs. Thank you, please call with questions.
[2018-09-17] MEDS: FLAGYL 500 MG/100 ML 500 MG/100 ML BAG IV SCH ×2 (13:26→22:58)
[2018-09-17] MEDS ORDERED: LOVENOX SUB-Q SCH (22:00)
[2018-09-18] MEDS: D5/0.45NS 1,000 ML IV SCH ×2 (05:14→22:32)
[2018-09-18] MEDS: FLAGYL 500 MG/100 ML 500 MG/100 ML BAG IV SCH ×3 (05:14→22:30)
[2018-09-18 06:00] LABS: Hematocrit 36.2 % (30.3-42.9); Hemoglobin 11.3 gm/dl (10.1-14.3); Mean Corpuscular HGB Conc 31 % (30-34); Mean Corpuscular Volume 83 fl (79-97); Platelet Count 159 K/mm3 (140-440); Red Blood Count 4.38 M/mm3 (3.65-5.03); Red Cell Distribution Width 15.3 % (13.2-15.2)
[2018-09-18 06:24] LABS: BUN/Creatinine Ratio 48; Blood Urea Nitrogen 43 mg/dL (7-17); Calcium 8.6 mg/dL (8.4-10.2); Hemolysis Index 24
[2018-09-18] MEDS ORDERED: POTASSIUM CHLORIDE PO ONE (08:22)
--- NOTE | 2018-09-18 08:25 | Progress Note ---
Assessment and Plan Assessment and plan: Per Admission record patient is a 68-year-old male with history of CVA and resultant aphasia who presented with increased weakness nausea vomiting and diarrhea for 2 days duration was noted to have acute cystitis and left lower lobe pneumonia with sepsis and admitted for same reason. Severe sepsis Acute cystitis Nausea/vomiting ?acute gastroenteritis Left lower lobe pneumonia- Left large consolidation Emphysema Aphasia muscle result of prior CVA Acute kidney injury secondary to visible due to nephropathy-Resolved Hypernatremia ?Ileus Severe Protien malnutrition Diverticulosis ?Diverticulitis Large Calcified Gallstone Mild left Hydronephrosis Rhabdomylysis-Resolving OSTEOPENIA Plan Continue supportive care Hip xray shows no fracture Surgery and ID input noted, will work up for aspiration Rhabdomylysis is improving speech therapy consulted PT/OT consult AM LABS, including creatinine kinase And sodium level calcium and vitamin D on discharge If sodium still elevated, will change to D5W. Aspiration precautions Obtain home meds Fall precautions DVT/GI prophy Discharge based on findings. History Interval history: Patient seen and examined, no new complaints this morning, Hospitalist Physical - Physical exam Narrative exam: VITAL SIGNS: Reviewed. GENERAL: The patient appeared cachetic and very lethargic appearing. Vital signs as documented. HEAD: No signs of head trauma. EYES: Pupils are equal. Extraocular motions intact. EARS: Hearing grossly intact. MOUTH: right droop-chronic NECK: No adenopathy, no JVD. CHEST: Chest with clear breath sounds bilaterally. No wheezes, rales, or rhonchi. CARDIAC: Regular rate and rhythm. S1 and S2, without murmurs, gallops, or rubs. VASCULAR: No Edema. Peripheral pulses normal and equal in all extremities. ABDOMEN: Soft, without detectable tenderness. No sign of distention. No rebound or guarding, and no masses palpated. Bowel Sounds normal. MUSCULOSKELETAL: Good range of motion of all major joints. Extremities without clubbing, cyanosis or edema. NEUROLOGIC EXAM: Alert and oriented x 3. generalized weakness, bedbound. Non verbal but mouthing words. PSYCHIATRIC: Mood normal. SKIN: LEFT HIP ERYTHEMA. - Constitutional Vitals: Temp Pulse Resp BP Pulse Ox 98.6 F 100 H 18 119/68 98 09/18/18 07:21 09/18/18 07:21 09/18/18 07:21 09/18/18 07:21 09/18/18 07:21 Results - Labs CBC & Chem 7: 09/18/18 05:35 09/18/18 05:35 Labs: Laboratory Last Values WBC 24.9 K/mm3 (4.5-11.0) H 09/18/18 05:35 RBC 4.38 M/mm3 (3.65-5.03) 09/18/18 05:35 Hgb 11.3 gm/dl (10.1-14.3) 09/18/18 05:35 Hct 36.2 % (30.3-42.9) 09/18/18 05:35 MCV 83 fl (79-97) 09/18/18 05:35 MCH 26 pg (28-32) L 09/18/18 05:35 MCHC 31 % (30-34) 09/18/18 05:35 RDW 15.3 % (13.2-15.2) H 09/18/18 05:35 Plt Count 159 K/mm3 (140-440) 09/18/18 05:35 Add Manual Diff Complete 09/17/18 07:27 Total Counted 100 09/17/18 07:27 Seg Neutrophils % Kitchen Chef 09/17/18 07:27 Seg Neuts % (Manual) 89.0 % (40.0-70.0) H 09/17/18 07:27 Band Neutrophils % 0 % 09/17/18 07:27 Lymphocytes % (Manual) 7.0 % (13.4-35.0) L 09/17/18 07:27 Reactive Lymphs % (Man) 0 % 09/17/18 07:27 Monocytes % (Manual) 4.0 % (0.0-7.3) 09/17/18 07:27 Eosinophils % (Manual) 0 % (0.0-4.3) 09/17/18 07:27 Basophils % (Manual) 0 % (0.0-1.8) 09/17/18 07:27 Metamyelocytes % 0 % 09/17/18 07:27 Myelocytes % 0 % 09/17/18 07:27 Promyelocytes % 0 % 09/17/18 07:27 Blast Cells % 0 % 09/17/18 07:27 Nucleated RBC % Not Reportable 09/17/18 07:27 Seg Neutrophils # Man 23.6 K/mm3 (1.8-7.7) H 09/17/18 07:27 Band Neutrophils # 0.0 K/mm3 09/17/18 07:27 Lymphocytes # (Manual) 1.9 K/mm3 (1.2-5.4) 09/17/18 07:27 Abs React Lymphs (Man) 0.0 K/mm3 09/17/18 07:27 Monocytes # (Manual) 1.1 K/mm3 (0.0-0.8) H 09/17/18 07:27 Eosinophils # (Manual) 0.0 K/mm3 (0.0-0.4) 09/17/18 07:27 Basophils # (Manual) 0.0 K/mm3 (0.0-0.1) 09/17/18 07:27 Metamyelocytes # 0.0 K/mm3 09/17/18 07:27 Myelocytes # 0.0 K/mm3 09/17/18 07:27 Promyelocytes # 0.0 K/mm3 09/17/18 07:27 Blast Cells # 0.0 K/mm3 09/17/18 07:27 WBC Morphology Not Reportable 09/17/18 07:27 Hypersegmented Neuts Not Reportable 09/17/18 07:27 Hyposegmented Neuts Not Reportable 09/17/18 07:27 Hypogranular Neuts Not Reportable 09/17/18 07:27 Smudge Cells Not Reportable 09/17/18 07:27 Toxic Granulation Not Reportable 09/17/18 07:27 Toxic Vacuolation Few 09/17/18 07:27 Dohle Bodies 1+ 09/17/18 07:27 Pelger-Huet Anomaly Not Reportable 09/17/18 07:27 Martha Rods Not Reportable 09/17/18 07:27 Platelet Estimate Consistent w auto 09/17/18 07:27 Clumped Platelets Not Reportable 09/17/18 07:27 Plt Clumps, EDTA Not Reportable 09/17/18 07:27 Large Platelets Not Reportable 09/17/18 07:27 Giant Platelets Not Reportable 09/17/18 07:27 Platelet Satelliting Not Reportable 09/17/18 07:27 Plt Morphology Comment Not Reportable 09/17/18 07:27 RBC Morphology Not Reportable 09/17/18 07:27 Dimorphic RBCs Not Reportable 09/17/18 07:27 Polychromasia Not Reportable 09/17/18 07:27 Hypochromasia Not Reportable 09/17/18 07:27 Poikilocytosis 1+ 09/17/18 07:27 Anisocytosis 1+ 09/17/18 07:27 Microcytosis Not Reportable 09/17/18 07:27 Macrocytosis Not Reportable 09/17/18 07:27 Spherocytes Not Reportable 09/17/18 07:27 Pappenheimer Bodies Not Reportable 09/17/18 07:27 Sickle Cells Not Reportable 09/17/18 07:27 Target Cells Few 09/17/18 07:27 Tear Drop Cells Not Reportable 09/17/18 07:27 Ovalocytes Few 09/17/18 07:27 Helmet Cells Not Reportable 09/17/18 07:27 [place] Bodies Not Reportable 09/17/18 07:27 [place] Rings Not Reportable 09/17/18 07:27 [place] Cells Not Reportable 09/17/18 07:27 Bite Cells Not Reportable 09/17/18 07:27 Crenated Cell Not Reportable 09/17/18 07:27 Elliptocytes Not Reportable 09/17/18 07:27 Acanthocytes (Spur) Not Reportable 09/17/18 07:27 Rouleaux Not Reportable 09/17/18 07:27 Hemoglobin C Crystals Not Reportable 09/17/18 07:27 Schistocytes Not Reportable 09/17/18 07:27 Malaria parasites Not Reportable 09/17/18 07:27 Brandin Bodies Not Reportable 09/17/18 07:27 Hem Pathologist Commnt No 09/17/18 07:27 Sodium 152 mmol/L (137-145) H 09/18/18 05:35 Potassium 3.4 mmol/L (3.6-5.0) L 09/18/18 05:35 Chloride 119.9 mmol/L (98-107) H 09/18/18 05:35 Carbon Dioxide 23 mmol/L (22-30) 09/18/18 05:35 Anion Gap 13 mmol/L 09/18/18 05:35 BUN 43 mg/dL (7-17) H 09/18/18 05:35 Creatinine 0.9 mg/dL (0.7-1.2) 09/18/18 05:35 Estimated GFR > 60 ml/min 09/18/18 05:35 BUN/Creatinine Ratio 48 % 09/18/18 05:35 Glucose 102 mg/dL (65-100) H 09/18/18 05:35 Hemoglobin A1c 5.2 % (4-6) 09/17/18 07:27 Lactic Acid 1.60 mmol/L (0.7-2.0) 09/17/18 05:41 Calcium 8.6 mg/dL (8.4-10.2) 09/18/18 05:35 Magnesium 1.90 mg/dL (1.7-2.3) 09/16/18 18:37 Total Bilirubin 0.90 mg/dL (0.1-1.2) 09/16/18 18:37 AST 80 units/L (5-40) H 09/16/18 18:37 ALT 26 units/L (7-56) 09/16/18 18:37 Alkaline Phosphatase 62 units/L (35-129) 09/16/18 18:37 Total Creatine Kinase 957 units/L (30-135) H 09/18/18 05:35 Total Protein 7.1 g/dL (6.3-8.2) 09/16/18 18:37 Albumin 2.6 g/dL (3.9-5) L 09/16/18 18:37 Albumin/Globulin Ratio 0.6 % 09/16/18 18:37 Urine Color Lu (Yellow) 09/16/18 17:40 Urine Turbidity Cloudy (Clear) 09/16/18 17:40 Urine pH 5.0 (5.0-7.0) 09/16/18 17:40 Ur Specific [place] 1.019 (1.003-1.030) 09/16/18 17:40 Urine Protein 30 mg/dl mg/dL (Negative) 09/16/18 17:40 Urine Glucose (UA) Neg mg/dL (Negative) 09/16/18 17:40 Urine Ketones Neg mg/dL (Negative) 09/16/18 17:40 Urine Blood Sm (Negative) 09/16/18 17:40 Urine Nitrite Neg (Negative) 09/16/18 17:40 Urine Bilirubin Neg (Negative) 09/16/18 17:40 Urine Urobilinogen 4.0 mg/dL (<2.0) 09/16/18 17:40 Ur Leukocyte Esterase Mod (Negative) 09/16/18 17:40 Urine WBC (Auto) 84.0 /HPF (0.0-6.0) H 09/16/18 17:40 Urine RBC (Auto) 19.0 /HPF (0.0-6.0) 09/16/18 17:40 U Epithel Cells (Auto) 5.0 /HPF (0-13.0) 09/16/18 17:40 Urine Bacteria (Auto) 3+ /HPF (Negative) 09/16/18 17:40 Urine Mucus 3+ /HPF 09/16/18 17:40 Nutrition/Malnutrition Assess - Dietary Evaluation Nutrition/Malnutrition Findings: Nutrition Notes Start: 09/17/18 11:10 Freq: Status: Active Protocol: Document 09/17/18 11:10 TW (Rec: 09/17/18 11:35 TW [id number]) Co-Sign 09/17/18 11:10 RM Nutrition Notes 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 Pertinent Medications Lovenox, D5n5 Height 5 ft 5 in Weight 49.895 kg [place] Body Weight (kg) 56.81 BMI 18.3 Subjective/Other Information RN screen for low BMI and Broderick score. Broderick score is 14. Pt was nonverbal. Per RN, pt has a poor appetite and is eating about half of her meals and has no N/V/D. RN recommended a supplement. Percent of energy/protein needs met: 85%/83% Burn Absent Trauma Absent #1 Nutrition Diagnosis Malnutrition Etiology Dementia As Evidenced by Signs and Symptoms Pt BMI of 18.3, temporal wasting Is patient on ventilator? No Is Patient Ambulatory and/or Out of Bed No REE-([facility]-confined to bed) 1241.724 Kcal/Kg value to use for calculation 31 Approximate Energy Requirements Using 1547 kcal/Kg Calculation Used for Recommendations Kcal/kg Additional Notes Protein needs: (1.2-1.3 g/kg) (60-65 g/day) Fluid needs: 1 ml/kcal Nutrition Intervention Change Diet Order: Continue current diet order Add Supplement/Snack (indicate name/kcal Ensure Enlive daily /protein ) Provides kCal: 350 Provides Protein (gm) 20 Goal #1 Continue to meet at least 75% of kcal and protein needs by PO and ONS intake Goal #2 ONS tolerance Anticipated Discharge Needs: Cardiac diet Follow-Up By: 09/19/18 Additional Comments F/U for PO intake and ONS tolerance
--- NOTE | 2018-09-18 08:38 | Progress Note ---
Assessment and Plan Cultures: 09/16/2018 urine culture: Mixed growth 09/16/2018 blood culture: In progress A/P: 68-year-old female with previous stroke and resultant aphasia admitted with: 1) Severe sepsis Improved, likely secondary to left lower lobe pneumonia: Patient does have a aphasia and with her prior stroke, aspiration is certainly possible especially since the patient seems to be preferring to lay on her left side and reportedly came with vomiting. 2) Acute respiratory failure: Secondary to pneumonia. 3) Urinary tract infection: Follow up urine cultures. Continue ceftriaxone for now. 4) Large calcific gallstone: Patient without any specific right upper quadrant tenderness on exam or LFT derangement. Will obtain right upper quadrant ultrasound. -RUQ u/s - cholelithiasis with large stone at the neck of the gallbladder. Wall is normal, no pericholecystic fluid. Dilatation of CBD, no surgical intervention at this time - Surgery following 5) TORI: monitor creatinine. 6) N/V/D: monitor for now. Recs: Continue ceftriaxone and azithromycin, D2 Continue Flagyl, D2 of D7 Follow-up culture results and clinical course follow up speech/swallow janeal Najma Sultana NP [facility] M: [phone] O:[phone] Subjective Date of service: 09/18/18 Interval history: Patient seen and examined, non-verbal at baseline, but follows simple command. No family at bedside. No acute distress observed. Objective - Exam Narrative Exam: Constitutional: awake, alert. No acute distress. Cachexia + Head, Ears, Nose: Normocephalic, atraumatic. External ears, nose normal Eyes: Conjunctivae/corneas clear. No icterus. No ptosis. Neck: Supple, no meningeal signs Oral: unable to examine Cardiovascular: S1, S2 normal. Respiratory: RRR, clear to auscultation GI: Soft, non-tender; bowel sounds normal. No peritoneal signs Musculoskeletal: No pedal edema, no cyanosis. Skin: No rash or abscess Hem/Lymphatic: No palpable cervical or supraclavicular nodes. No lymphangitis Psych: no agitation Neurological: Awake, alert, non verbal - Constitutional Vitals: Vital Signs Temp Pulse Resp BP Pulse Ox 98.6 F 100 H 18 119/68 98 09/18/18 07:21 09/18/18 07:21 09/18/18 07:21 09/18/18 07:21 09/18/18 07:21 Temperature -Last 24 Hours Temperature 98.6 F Temperature 98.6 F Temperature 98.1 F Temperature 100.3 F - Labs CBC & Chem 7: 09/18/18 05:35 09/18/18 12:41 Labs: Abnormal lab results 09/17/18 09/18/18 09/18/18 Range/Units 14:27 05:35 05:35 WBC 24.9 H (4.5-11.0) K/mm3 MCH 26 L (28-32) pg RDW 15.3 H (13.2-15.2) % Sodium 151 H 152 H (137-145) mmol/L Potassium 3.4 L (3.6-5.0) mmol/L Chloride 119.9 H (98-107) mmol/L BUN 43 H (7-17) mg/dL Glucose 102 H (65-100) mg/dL Total Creatine Kinase (30-135) units/L 09/18/18 Range/Units 05:35 WBC (4.5-11.0) K/mm3 MCH (28-32) pg RDW (13.2-15.2) % Sodium (137-145) mmol/L Potassium (3.6-5.0) mmol/L Chloride (98-107) mmol/L BUN (7-17) mg/dL Glucose (65-100) mg/dL Total Creatine Kinase 957 H (30-135) units/L
--- NOTE | 2018-09-18 08:56 | Ultrasound Report ---
ULTRASOUND ABDOMEN LIMITED: TECHNIQUE: Transabdominal ultrasound with color Doppler interrogation. HISTORY: Gallstones, sepsis. COMPARISON: CT abdomen pelvis without contrast dated 09/16/18. FINDINGS: LIVER: Normal. BILIARY SYSTEM: There is a large gallstone in the neck of the gallbladder measuring up to 2.5 x 4.2 cm. The gallbladder fundus appears borderline to mildly dilated and contains sludge. The gallbladder wall is normal measuring 2 mm. No obvious pericholecystic fluid. The CBD is dilated measuring 8.7 mm but no obvious choledocholithiasis is demonstrated. PANCREAS: Normal. RIGHT KIDNEY: The right kidney is normal size but slightly echogenic consistent with nonspecific renal parenchymal disease. No focal renal lesion or hydronephrosis. PROXIMAL AORTA: Moderate irregular plaques are noted throughout the abdominal aorta. No aneurysm. ASCITES: None. IMPRESSION: Cholelithiasis. The gallbladder is borderline dilated. The common bile duct is dilated measuring 8.7 mm. Consider further evaluation with MRCP or ERCP. Nonspecific renal parenchymal disease. Moderate atherosclerotic disease in the aorta.
[2018-09-18] MEDS: SODIUM CHLORIDE FLUSH SYRINGE 10 ML IV SCH ×2 (09:23→22:51)
[2018-09-18] MEDS: ROCEPHIN/NS 2 GM/100 ML 2 GM/100 ML BAG IV SCH (09:23)
[2018-09-18] MEDS: PEPCID PO SCH (09:24)
--- NOTE | 2018-09-18 10:15 | Progress Note ---
Assessment and Plan 68 yo F with 1. sepsis 2. UTI 3. PNA 4. cholelithiasis 5. malnutrition - albumin 2.6 6. TORI 7. hypernatremia RUQ u/s - cholelithiasis with large stone at the neck of the gallbladder. Wall is normal, no pericholecystic fluid. Dilatation of CBD Plan: 1. continue IVF 2. recommend nutrition c/s 3. awat speech therapy recs prior to starting diet in light of possible aspiration 4. DVT ppx 5. IV abx per 1' 6. 4. Despite ultrasound findings of cholelithiasis, the patient does not have any abdominal pain, n/v. She is tolerating PO liquids. Patient has other sources for sepsis such as PNA and UTI. If patient develops symptoms of abd pain, n/v, would obtain HIDA scan. At this time, no surgical intervention. Will defer to ' to treat other sources of infection. D/W Dr. Waldron. Thank you, please call with questions. Subjective Date of service: 09/18/18 Narrative: Pt seen and examined. No complaints. She denies abdominal pain. Drinking liquid and tolerating. No f/c. No n/v. No overnight events. Objective Vital Signs - 12hr 09/18/18 09/18/18 03:26 07:21 Temperature 98.6 F 98.6 F Pulse Rate 111 H 100 H Respiratory 18 18 Rate Blood Pressure 115/67 119/68 O2 Sat by Pulse 98 98 Oximetry - General physical appearance Narrative Exam: Gen; Awake and alert. NAD CV: S1, S2+ Resp; even and unlabored Abd: soft, NT, ND. no r/r/g Ext; no c/c/e - Labs 09/18/18 05:35 09/18/18 05:35 Diabetes panel 09/17/18 09/18/18 Range/Units 14:27 05:35 Sodium 151 H 152 H (137-145) mmol/L Potassium 3.4 L (3.6-5.0) mmol/L Chloride 119.9 H (98-107) mmol/L Carbon Dioxide 23 (22-30) mmol/L BUN 43 H (7-17) mg/dL Creatinine 0.9 (0.7-1.2) mg/dL Glucose 102 H (65-100) mg/dL Calcium 8.6 (8.4-10.2) mg/dL Calcium panel 09/18/18 Range/Units 05:35 Calcium 8.6 (8.4-10.2) mg/dL Pituitary panel 09/17/18 09/18/18 Range/Units 14:27 05:35 Sodium 151 H 152 H (137-145) mmol/L Potassium 3.4 L (3.6-5.0) mmol/L Chloride 119.9 H (98-107) mmol/L Carbon Dioxide 23 (22-30) mmol/L BUN 43 H (7-17) mg/dL Creatinine 0.9 (0.7-1.2) mg/dL Glucose 102 H (65-100) mg/dL Calcium 8.6 (8.4-10.2) mg/dL Adrenal panel 09/17/18 09/18/18 Range/Units 14:27 05:35 Sodium 151 H 152 H (137-145) mmol/L Potassium 3.4 L (3.6-5.0) mmol/L Chloride 119.9 H (98-107) mmol/L Carbon Dioxide 23 (22-30) mmol/L BUN 43 H (7-17) mg/dL Creatinine 0.9 (0.7-1.2) mg/dL Glucose 102 H (65-100) mg/dL Calcium 8.6 (8.4-10.2) mg/dL
[2018-09-18] MEDS: ZITHROMAX 500 MG in NACL 0.9% 250ML 250 ML IV SCH (15:58)
[2018-09-18] MEDS: LOVENOX SUB-Q SCH (22:33)
[2018-09-19 00:38] LABS: Hematocrit 32.4 % (30.3-42.9); Hemoglobin 10.6 gm/dl (10.1-14.3); Mean Corpuscular HGB Conc 33 % (30-34); Mean Corpuscular Volume 82 fl (79-97); Platelet Count 174 K/mm3 (140-440); Red Blood Count 3.95 M/mm3 (3.65-5.03); Red Cell Distribution Width 14.8 % (13.2-15.2)
[2018-09-19 03:48] LABS: Anisocytosis 1+; Band Neutrophils # (Manual) 4.4 K/mm3; Basophils % (Manual) 0 % (0.0-1.8); Eosinophils % (Manual) 0 % (0.0-4.3); Helmet Cells Rare; Ovalocytes 1+; Promyelocytes # (Manual) 0.4 K/mm3; Total Cells Counted 100
[2018-09-19 03:49] LABS: Burr Cells Rare; Giant Platelets Rare; Tear Drop Cells Rare
[2018-09-19 04:14] LABS: Hematocrit 33.1 % (30.3-42.9); Hemoglobin 10.6 gm/dl (10.1-14.3); Mean Corpuscular HGB Conc 32 % (30-34); Mean Corpuscular Volume 82 fl (79-97); Platelet Count 176 K/mm3 (140-440); Red Blood Count 4.01 M/mm3 (3.65-5.03); Red Cell Distribution Width 15.5 % (13.2-15.2)
[2018-09-19 04:31] LABS: BUN/Creatinine Ratio 39; Blood Urea Nitrogen 31 mg/dL (7-17); Calcium 8.5 mg/dL (8.4-10.2); Hemolysis Index 6
[2018-09-19] MEDS: FLAGYL 500 MG/100 ML 500 MG/100 ML BAG IV SCH ×3 (06:01→21:37)
--- NOTE | 2018-09-19 08:35 | Progress Note ---
Assessment and Plan Cultures: 09/16/2018 urine culture: Mixed growth 09/16/2018 blood culture: No growth thus far A/P: 68-year-old female with previous stroke and resultant aphasia admitted with: 1) Severe sepsis Still leukocytosis, trending down,, likely secondary to left lower lobe pneumonia: Patient does have a aphasia and with her prior stroke, aspiration is certainly possible especially since the patient seems to be preferring to lay on her left side and reportedly came with vomiting. 2) Acute respiratory failure: Secondary to pneumonia.. Swallowing function was assessed. Patient is at risk for aspiration. NPO is recommended 3) Urinary tract infection: Follow up urine cultures. Continue ceftriaxone for now. 4) Large calcific gallstone: Patient without any specific right upper quadrant tenderness on exam or LFT derangement. Will obtain right upper quadrant ultrasound. -RUQ u/s - cholelithiasis with large stone at the neck of the gallbladder. Wall is normal, no pericholecystic fluid. Dilatation of CBD, no surgical intervention at this time - Surgery following 5) TORI: monitor creatinine. 6) N/V/D: monitor for now. Recs: Continue ceftriaxone D3 of D7 Continue Flagyl, D3 of D7 Discontinue Azithromycin Follow-up culture results and clinical course Dr. Paris will be x ray consultant this weekend , please call for questions. Najma Sultana NP [facility] M: [phone] O:[phone] Subjective Date of service: 09/19/18 Interval history: Patient seen and examined, non-verbal at baseline, but follows simple command. No family at bedside. No acute distress observed. Objective - Exam Narrative Exam: Constitutional: awake, alert. No acute distress. Cachexia + Head, Ears, Nose: Normocephalic, atraumatic. External ears, nose normal Eyes: Conjunctivae/corneas clear. No icterus. No ptosis. Neck: Supple, no meningeal signs Oral: unable to examine Cardiovascular: S1, S2 normal. Respiratory: RRR, clear to auscultation GI: Soft, non-tender; bowel sounds normal. No peritoneal signs Musculoskeletal: No pedal edema, no cyanosis. Skin: No rash or abscess Hem/Lymphatic: No palpable cervical or supraclavicular nodes. No lymphangitis Psych: no agitation Neurological: Awake, alert, non verbal - Constitutional Vitals: Vital Signs Temp Pulse Resp BP Pulse Ox 98.3 F 75 20 137/76 98 09/19/18 07:28 09/19/18 07:28 09/19/18 07:28 09/19/18 07:28 09/19/18 07:28 Temperature -Last 24 Hours Temperature 98.3 F Temperature 98.2 F Temperature 98.6 F Temperature 98.1 F - Labs CBC & Chem 7: 09/19/18 03:08 09/19/18 03:08 Labs: Abnormal lab results 09/18/18 09/19/18 09/19/18 Range/Units 12:41 00:12 03:08 WBC 20.8 H 19.1 H (4.5-11.0) K/mm3 MCH 27 L 26 L (28-32) pg RDW 15.5 H (13.2-15.2) % Lymphocytes % (Manual) 5.0 L (13.4-35.0) % Seg Neutrophils # Man 14.4 H (1.8-7.7) K/mm3 Lymphocytes # (Manual) 1.0 L (1.2-5.4) K/mm3 Sodium 151 H (137-145) mmol/L Chloride (98-107) mmol/L BUN (7-17) mg/dL Glucose (65-100) mg/dL 09/19/18 Range/Units 03:08 WBC (4.5-11.0) K/mm3 MCH (28-32) pg RDW (13.2-15.2) % Lymphocytes % (Manual) (13.4-35.0) % Seg Neutrophils # Man (1.8-7.7) K/mm3 Lymphocytes # (Manual) (1.2-5.4) K/mm3 Sodium 153 H (137-145) mmol/L Chloride 119.9 H (98-107) mmol/L BUN 31 H (7-17) mg/dL Glucose 62 L (65-100) mg/dL
[2018-09-19] MEDS: D5W 1,000 ML IV SCH ×2 (08:55→21:16)
[2018-09-19] MEDS: ROCEPHIN/NS 2 GM/100 ML 2 GM/100 ML BAG IV SCH (08:58)
[2018-09-19] MEDS: PEPCID PO SCH (09:00)
[2018-09-19] MEDS: SODIUM CHLORIDE FLUSH SYRINGE 10 ML IV SCH ×2 (10:00→21:24)
[2018-09-19] MEDS: ZITHROMAX 500 MG in NACL 0.9% 250ML 250 ML IV SCH (10:04)
[2018-09-19 11:13] LABS: Alanine Aminotransferase 22 units/L (7-56); Albumin 2.3 g/dL (3.9-5)
[2018-09-19 11:28] LABS: Bilirubin,Direct < 0.2 mg/dL (0-0.2)
[2018-09-19] MEDS: PEPCID IV SCH (14:00)
--- NOTE | 2018-09-19 15:15 | Progress Note ---
Assessment and Plan Assessment and plan: A/P Severe dehydration with hypernatremia pt declined tube feeding placement change to D5W and monitor chemistry closely am labs\ Dobb off placement ordered. Severe protein calorie Malnutrition consider PEG tube placement, pt also declined continue D5W consider TPN Severe sepsis syndrome 2/2 Aspiration PNA continue IV abx monitor wbc closely Aspiration Pneumonia aspiration precautions at all times NPO status h/o CVA with focal deficits fall precautions at all times HTN prn IV bp meds Severe Adult FTT insert feeding tube Chronic Physical deconditioning PT/OT to eval and treat Full code status Further pt mgt per hospital course Disposition Plan: Dobb off insertion for tube feeding Total Time Spent with Patient (Minutes): More than 30 mins spent History Interval history: HPI from ED records This is a 68-year-old female who is not known to this provider previously. Apparently, the patient has a history of stroke. She is apparently nonverbal. Apparently, her bindery manager had indicated that the patient has been having increased weakness, with nausea, vomiting, diarrhea for 2 days. The patient is nonverbal and not able to describe exacerbating or relieving fact ors. The caregiver is not physically present at this point in time, and is not available for corroborating information currently. Patient nonverbal, not able to describe qualitative nature of her symptoms, exacerbating, radiation, relieving factors. Brief hospital course Patient was admitted to the hospital medicine service, managed with IV abx, and has been seen in consultation by the ID and surgery teams. [facility] NPO status Subjective: Patient was seen and exam by bedside. Pt had an episode of Hypoglycemia 62, IVF has been changed to D5W at 100cc per hr. Pt was awake during the encounter. Offerred pt Feeding tube for nutrition and medications but pt declined. Will need to discuss with pt's customer care coordinator about pt's feeding options. inputs and reccs of the specialists greatly appreciated. Hospitalist Physical - Constitutional Vitals: Temp Pulse Resp BP Pulse Ox 97.9 F 69 20 171/85 99 09/19/18 13:28 09/19/18 13:28 09/19/18 13:28 09/19/18 13:28 09/19/18 13:28 General appearance: Present: no acute distress, cachectic, other (severely malnourished) - EENT Eyes: Present: PERRL, EOM intact ENT: hearing intact, other (dry mm) - Neck Neck: Present: supple, normal ROM - Respiratory Respiratory: left: diminished, rhonchi, negative: rales, wheezing - Cardiovascular Rhythm: regular Heart Sounds: Present: S1 & S2 - Extremities Extremities: pulses intact, No edema, normal temperature - Abdominal General gastrointestinal: soft, non-distended, distended, normal bowel sounds - Integumentary Integumentary: Present: clear, warm, dry - Psychiatric Psychiatric: appropriate mood/affect, other (unable to assess due to aphasia from an old stroke) - Neurologic Neurologic: CNII-XII intact, focal deficits (from an old stroke with facial droop) - Allied Health Allied health notes reviewed: nursing, ST, social work, case management Results - Labs CBC & Chem 7: 09/19/18 03:08 09/19/18 03:08 Labs: Laboratory Last Values WBC 19.1 K/mm3 (4.5-11.0) H 09/19/18 03:08 RBC 4.01 M/mm3 (3.65-5.03) 09/19/18 03:08 Hgb 10.6 gm/dl (10.1-14.3) 09/19/18 03:08 Hct 33.1 % (30.3-42.9) 09/19/18 03:08 MCV 82 fl (79-97) 09/19/18 03:08 MCH 26 pg (28-32) L 09/19/18 03:08 MCHC 32 % (30-34) 09/19/18 03:08 RDW 15.5 % (13.2-15.2) H 09/19/18 03:08 Plt Count 176 K/mm3 (140-440) 09/19/18 03:08 Add Manual Diff Complete 09/19/18 00:12 Total Counted 100 09/19/18 00:12 Seg Neutrophils % [employer] 09/17/18 07:27 Seg Neuts % (Manual) 69.0 % (40.0-70.0) 09/19/18 00:12 Band Neutrophils % 21.0 % 09/19/18 00:12 Lymphocytes % (Manual) 5.0 % (13.4-35.0) L 09/19/18 00:12 Reactive Lymphs % (Man) 0 % 09/19/18 00:12 Monocytes % (Manual) 3.0 % (0.0-7.3) 09/19/18 00:12 Eosinophils % (Manual) 0 % (0.0-4.3) 09/19/18 00:12 Basophils % (Manual) 0 % (0.0-1.8) 09/19/18 00:12 Metamyelocytes % 0 % 09/19/18 00:12 Myelocytes % 0 % 09/19/18 00:12 Promyelocytes % 2.0 % 09/19/18 00:12 Blast Cells % 0 % 09/19/18 00:12 Nucleated RBC % Not Reportable 09/19/18 00:12 Seg Neutrophils # Man 14.4 K/mm3 (1.8-7.7) H 09/19/18 00:12 Band Neutrophils # 4.4 K/mm3 09/19/18 00:12 Lymphocytes # (Manual) 1.0 K/mm3 (1.2-5.4) L 09/19/18 00:12 Abs React Lymphs (Man) 0.0 K/mm3 09/19/18 00:12 Monocytes # (Manual) 0.6 K/mm3 (0.0-0.8) 09/19/18 00:12 Eosinophils # (Manual) 0.0 K/mm3 (0.0-0.4) 09/19/18 00:12 Basophils # (Manual) 0.0 K/mm3 (0.0-0.1) 09/19/18 00:12 Metamyelocytes # 0.0 K/mm3 09/19/18 00:12 Myelocytes # 0.0 K/mm3 09/19/18 00:12 Promyelocytes # 0.4 K/mm3 09/19/18 00:12 Blast Cells # 0.0 K/mm3 09/19/18 00:12 WBC Morphology Not Reportable 09/19/18 00:12 Hypersegmented Neuts Not Reportable 09/19/18 00:12 Hyposegmented Neuts Not Reportable 09/19/18 00:12 Hypogranular Neuts Not Reportable 09/19/18 00:12 Smudge Cells Not Reportable 09/19/18 00:12 Toxic Granulation Not Reportable 09/19/18 00:12 Toxic Vacuolation Not Reportable 09/19/18 00:12 Dohle Bodies Not Reportable 09/19/18 00:12 Pelger-Huet Anomaly Not Reportable 09/19/18 00:12 Martha Rods Not Reportable 09/19/18 00:12 Platelet Estimate Appears normal 09/19/18 00:12 Clumped Platelets Not Reportable 09/19/18 00:12 Plt Clumps, EDTA Not Reportable 09/19/18 00:12 Large Platelets Not Reportable 09/19/18 00:12 Giant Platelets Rare 09/19/18 00:12 Platelet Satelliting Not Reportable 09/19/18 00:12 Plt Morphology Comment Not Reportable 09/19/18 00:12 RBC Morphology Not Reportable 09/19/18 00:12 Dimorphic RBCs Not Reportable 09/19/18 00:12 Polychromasia 1+ 09/19/18 00:12 Hypochromasia Not Reportable 09/19/18 00:12 Poikilocytosis Not Reportable 09/19/18 00:12 Anisocytosis 1+ 09/19/18 00:12 Microcytosis Not Reportable 09/19/18 00:12 Macrocytosis Not Reportable 09/19/18 00:12 Spherocytes Not Reportable 09/19/18 00:12 Pappenheimer Bodies Not Reportable 09/19/18 00:12 Sickle Cells Not Reportable 09/19/18 00:12 Target Cells Not Reportable 09/19/18 00:12 Tear Drop Cells Rare 09/19/18 00:12 Ovalocytes 1+ 09/19/18 00:12 Helmet Cells Rare 09/19/18 00:12 [place] Bodies Not Reportable 09/19/18 00:12 Godwin Rings Not Reportable 09/19/18 00:12 Thornton Cells Rare 09/19/18 00:12 Bite Cells Not Reportable 09/19/18 00:12 Crenated Cell Not Reportable 09/19/18 00:12 Elliptocytes 1+ 09/19/18 00:12 Acanthocytes (Spur) Not Reportable 09/19/18 00:12 Rouleaux Not Reportable 09/19/18 00:12 Hemoglobin C Crystals Not Reportable 09/19/18 00:12 Schistocytes Not Reportable 09/19/18 00:12 Malaria parasites Not Reportable 09/19/18 00:12 Brandin Bodies Not Reportable 09/19/18 00:12 Hem Pathologist Commnt No 09/19/18 00:12 Sodium 153 mmol/L (137-145) H 09/19/18 03:08 Potassium 3.8 mmol/L (3.6-5.0) 09/19/18 03:08 Chloride 119.9 mmol/L (98-107) H 09/19/18 03:08 Carbon Dioxide 22 mmol/L (22-30) 09/19/18 03:08 Anion Gap 15 mmol/L 09/19/18 03:08 BUN 31 mg/dL (7-17) H 09/19/18 03:08 Creatinine 0.8 mg/dL (0.7-1.2) 09/19/18 03:08 Estimated GFR > 60 ml/min 09/19/18 03:08 BUN/Creatinine Ratio 39 % 09/19/18 03:08 Glucose 62 mg/dL (65-100) L 09/19/18 03:08 Hemoglobin A1c 5.2 % (4-6) 09/17/18 07:27 Lactic Acid 1.60 mmol/L (0.7-2.0) 09/17/18 05:41 Calcium 8.5 mg/dL (8.4-10.2) 09/19/18 03:08 Magnesium 1.90 mg/dL (1.7-2.3) 09/16/18 18:37 Total Bilirubin 0.20 mg/dL (0.1-1.2) 09/19/18 03:08 Direct Bilirubin < 0.2 mg/dL (0-0.2) 09/19/18 03:08 Indirect Bilirubin 0.0 mg/dL 09/19/18 03:08 AST 47 units/L (5-40) H 09/19/18 03:08 ALT 22 units/L (7-56) 09/19/18 03:08 Alkaline Phosphatase 119 units/L (35-129) 09/19/18 03:08 Total Creatine Kinase 957 units/L (30-135) H 09/18/18 05:35 Total Protein 5.8 g/dL (6.3-8.2) L 09/19/18 03:08 Albumin 2.3 g/dL (3.9-5) L 09/19/18 03:08 Albumin/Globulin Ratio 0.7 % 09/19/18 03:08 Urine Color Lu (Yellow) 09/16/18 17:40 Urine Turbidity Cloudy (Clear) 09/16/18 17:40 Urine pH 5.0 (5.0-7.0) 09/16/18 17:40 Ur Specific [place] 1.019 (1.003-1.030) 09/16/18 17:40 Urine Protein 30 mg/dl mg/dL (Negative) 09/16/18 17:40 Urine Glucose (UA) Neg mg/dL (Negative) 09/16/18 17:40 Urine Ketones Neg mg/dL (Negative) 09/16/18 17:40 Urine Blood Sm (Negative) 09/16/18 17:40 Urine Nitrite Neg (Negative) 09/16/18 17:40 Urine Bilirubin Neg (Negative) 09/16/18 17:40 Urine Urobilinogen 4.0 mg/dL (<2.0) 09/16/18 17:40 Ur Leukocyte Esterase Mod (Negative) 09/16/18 17:40 Urine WBC (Auto) 84.0 /HPF (0.0-6.0) H 09/16/18 17:40 Urine RBC (Auto) 19.0 /HPF (0.0-6.0) 09/16/18 17:40 U Epithel Cells (Auto) 5.0 /HPF (0-13.0) 09/16/18 17:40 Urine Bacteria (Auto) 3+ /HPF (Negative) 09/16/18 17:40 Urine Mucus 3+ /HPF 09/16/18 17:40 - Imaging and Cardiology Chest x-ray: report reviewed Nutrition/Malnutrition Assess - Dietary Evaluation Nutrition/Malnutrition Findings: Nutrition Notes Start: 09/17/18 11:10 Freq: Status: Active Protocol: Document 09/19/18 12:19 TW (Rec: 09/19/18 12:48 TW [id number]) Co-Sign 09/19/18 12:19 RM Nutrition Notes Initial or Follow up Reassessment Current Diagnosis Acute Kidney Injury COPD Sepsis Hypertension Stroke Other Pertinent Diagnosis Aphasia, Dementia, UTI, Pneumonia Current Diet NPO Labs/Tests Na: 153 Pertinent Medications Lovenox, D5n5 Height 5 ft 5 in Weight 49.895 kg [place] Body Weight (kg) 56.81 BMI 18.3 Subjective/Other Information Cardiac diet in place earlier today. NPO ordered later today . NPO recommended per Bedside dysphagia evaluation (09/18). Observed breakfast tray not eaten and an unopened bottle of Ensure Enlive on the bedside table. RN stated that she is unsure of how pt appetite was FLOW SPECIALIST. Percent of energy/protein needs met: 0%/0% Burn Absent Trauma Absent #1 Nutrition Diagnosis Malnutrition Diagnosis Progress(for reassessment Continues documentation) Is patient on ventilator? No Is Patient Ambulatory and/or Out of Bed No REE-([facility]-confined to bed) 1241.724 Kcal/Kg value to use for calculation 31 Approximate Energy Requirements Using 1547 kcal/Kg Calculation Used for Recommendations Kcal/kg Additional Notes Protein needs: (1.2-1.3 g/kg) (60-65 g/day) Fluid needs: 1 ml/kcal Nutrition Intervention Change Diet Order: Advance diet when medically feasible Add Supplement/Snack (indicate name/kcal D/C Ensure Enlive daily /protein ) Goal #1 Diet advancement Anticipated Discharge Needs: unable to determine at this time Follow-Up By: 09/23/18 Additional Comments F/U for PO intake and POC
[2018-09-19] MEDS: LOVENOX SUB-Q SCH (21:23)
[2018-09-20 01:14] LABS: Hematocrit 34.6 % (30.3-42.9); Mean Corpuscular HGB Conc 32 % (30-34); Mean Corpuscular Volume 83 fl (79-97); Platelet Count 198 K/mm3 (140-440); Red Blood Count 4.19 M/mm3 (3.65-5.03)
[2018-09-20 01:39] LABS: Alanine Aminotransferase 20 units/L (7-56); Albumin 1.6 g/dL (3.9-5); BUN/Creatinine Ratio 25; Blood Urea Nitrogen 15 mg/dL (7-17); Hemolysis Index 22
[2018-09-20 05:51] LABS: Anisocytosis 1+; Band Neutrophils # (Manual) 0.3 K/mm3; Basophils % (Manual) 0 % (0.0-1.8); Eosinophils % (Manual) 0 % (0.0-4.3); Helmet Cells Rare; Monocytes % (Manual) 0 % (0.0-7.3); Ovalocytes 1+; Tear Drop Cells Rare; Total Cells Counted 100
[2018-09-20] MEDS: FLAGYL 500 MG/100 ML 500 MG/100 ML BAG IV SCH ×3 (06:15→22:02)
[2018-09-20] MEDS: ROCEPHIN/NS 2 GM/100 ML 2 GM/100 ML BAG IV SCH (08:13)
[2018-09-20] MEDS: SODIUM CHLORIDE FLUSH SYRINGE 10 ML IV SCH ×2 (09:00→22:00)
[2018-09-20] MEDS: PEPCID IV SCH (09:45)
--- NOTE | 2018-09-20 12:18 | Progress Note ---
Assessment and Plan Cultures: 09/16/2018 urine culture: Mixed growth 09/16/2018 blood culture: No growth thus far A/P: 68-year-old female with previous stroke and resultant aphasia admitted with: 1) Severe sepsis: WBC trending down, likely secondary to left lower lobe pneumonia: Patient does have a aphasia and with her prior stroke, aspiration is certainly possible especially since the patient seems to be preferring to lay on her left side and reportedly came with vomiting. 2) Acute respiratory failure: Secondary to pneumonia. Swallowing function was assessed. Patient was noted to be at risk for aspiration. 3) Urinary tract infection: No growth on urine culture. Already received abx. 4) Large calcific gallstone: no radiologic or clinical or lab concern for acute cholecystitis. Gen. Surgery evaluated patient 5) TORI: improved. 6) N/V/D: resolved Recs: Continue ceftriaxone D4 of D7 Continue Flagyl, D4 of D7 Can transition to PO Augmentin 875 mg BID when discharged Indira Paris MD [facility] C: [phone] O: [phone] F: [phone] Subjective Date of service: 09/20/18 Interval history: No fever. No more vomiting. No diarrhea. Breathing stable and comfortable. Objective - Exam Narrative Exam: Physical Exam: Constitutional: awake, alert. No acute distress. Cachexia + Head, Ears, Nose: Normocephalic, atraumatic. External ears, nose normal Eyes: Conjunctivae/corneas clear. No icterus. No ptosis. Neck: Supple, no meningeal signs Oral: unable to examine Cardiovascular: S1, S2 normal. Respiratory: clear to ausc. no wheeze or crackles GI: Soft, non-tender; bowel sounds normal. No peritoneal signs Musculoskeletal: No pedal edema, no cyanosis. Skin: No rash or abscess Hem/Lymphatic: No palpable cervical or supraclavicular nodes. No lymphangitis Psych: no agitation Neurological: Awake, alert, able to follow basic commands - Constitutional Vitals: Vital Signs Temp Pulse Resp BP Pulse Ox 98.5 F 77 20 149/86 100 09/20/18 07:23 09/20/18 07:23 09/20/18 07:23 09/20/18 07:23 09/20/18 11:11 Temperature -Last 24 Hours Temperature 98.5 F Temperature 97.7 F Temperature 98.6 F Temperature 97.9 F - Labs CBC & Chem 7: 09/20/18 00:57 09/20/18 00:57 Labs: Abnormal lab results 09/20/18 09/20/18 Range/Units 00:57 00:57 WBC 12.6 H (4.5-11.0) K/mm3 MCH 26 L (28-32) pg Seg Neuts % (Manual) 79.0 H (40.0-70.0) % Nucleated RBC % 2.0 H (0.0-0.9) % Seg Neutrophils # Man 10.0 H (1.8-7.7) K/mm3 Sodium 146 H (137-145) mmol/L Potassium 3.2 L (3.6-5.0) mmol/L Chloride 113.2 H (98-107) mmol/L Creatinine 0.6 L (0.7-1.2) mg/dL Calcium 8.0 L (8.4-10.2) mg/dL Total Protein 5.5 L (6.3-8.2) g/dL Albumin 1.6 L (3.9-5) g/dL
--- NOTE | 2018-09-20 15:39 | Progress Note ---
Assessment and Plan Severe dehydration with hypernatremia pt declined tube feeding placement change to D5W and monitor chemistry closely am labs\ Dobb off placement ordered. Severe protein calorie Malnutrition consider PEG tube placement, pt also declined continue D5W consider TPN Severe sepsis syndrome 2/2 Aspiration PNA continue IV abx monitor wbc closely Hypokalemia Supplements Check magnesium level Aspiration Pneumonia aspiration precautions at all times NPO status h/o CVA with focal deficits fall precautions at all times HTN prn IV bp meds Severe Adult FTT insert feeding tube Chronic Physical deconditioning PT/OT to eval and treat Full code status Further pt mgt per hospital course Disposition Plan: Awaiting patient decision on Dobboff insertion for tube feeding. Consider PEG tube placement and transferring to SNF Total Time Spent with Patient (Minutes): More than 25 min mins spent Subjective Date of service: 09/20/18 Principal diagnosis: sepsis, aspiration pneumonia, particularly amount of dictation. Interval history: Patient seen and examined. Leg quite embedded. Remains afebrile. No chest pain. Objective - Exam Narrative Exam: Constitutional: Malnourished. In no distress Head: Normocephalic atraumatic Eyes: Pupils are equal round and reactive to light Nose: No enlarged turbinates, no septal deviation. Mouth: Moist mucous membranes. Neck: Supple no thyromegaly. No bruit. No JVD Heart: Regular rate and rhythm, S1-S2 normal. No rubs murmurs or gallop Lungs: Clear to auscultation bilaterally. no rales or rhonchi Abdomen: Soft, nontender. Bowel sound are present. Extremities: No edema, no cyanosis, no clubbing. Neuro: Alert oriented Oriented x3. No focal sensory or motor deficit. Skin: No rashes or hyperpigmented spots Musculoskeletal system: No joint pain or swelling Hematological: No petechia or subcutanous hemorrhages. Immunological: No multiple septic spots on the skin Lymphatic: No generalized lymphadenopathy Psychiatry: Euthymic. Calm. - Constitutional Vitals: Vital Signs - 12hr 09/20/18 09/20/18 07:23 11:11 Temperature 98.5 F Pulse Rate 77 Respiratory 20 Rate Blood Pressure 149/86 O2 Sat by Pulse 100 100 Oximetry - Labs CBC & Chem 7: 09/20/18 00:57 09/20/18 00:57 Labs: Abnormal lab results 09/20/18 09/20/18 Range/Units 00:57 00:57 WBC 12.6 H (4.5-11.0) K/mm3 MCH 26 L (28-32) pg Seg Neuts % (Manual) 79.0 H (40.0-70.0) % Nucleated RBC % 2.0 H (0.0-0.9) % Seg Neutrophils # Man 10.0 H (1.8-7.7) K/mm3 Sodium 146 H (137-145) mmol/L Potassium 3.2 L (3.6-5.0) mmol/L Chloride 113.2 H (98-107) mmol/L Creatinine 0.6 L (0.7-1.2) mg/dL Calcium 8.0 L (8.4-10.2) mg/dL Total Protein 5.5 L (6.3-8.2) g/dL Albumin 1.6 L (3.9-5) g/dL
[2018-09-20] MEDS ORDERED: KCL 20MEQ/100ML 20 MEQ/100 ML BAG IV ONE (18:00)
[2018-09-20] MEDS: KCL 10MEQ/100ML 10 MEQ/100 ML BAG IV SCH ×2 (20:11→21:59)
[2018-09-20] MEDS: LOVENOX SUB-Q SCH (22:00)
[2018-09-20] MEDS: D5W 1,000 ML IV SCH (22:05)
[2018-09-21 04:46] LABS: Basophils % (Auto) 0.2 % (0.0-1.8); Eosinophils # (Auto) 0.2 K/mm3 (0.0-0.4); Eosinophils % (Auto) 1.7 % (0.0-4.3); Hematocrit 36.3 % (30.3-42.9); Hemoglobin 11.9 gm/dl (10.1-14.3); Lymphocytes # (Auto) 2.1 K/mm3 (1.2-5.4); Lymphocytes % (Auto) 16.4 % (13.4-35.0); Mean Corpuscular HGB Conc 33 % (30-34); Mean Corpuscular Volume 82 fl (79-97); Monocytes # (Auto) 0.8 K/mm3 (0.0-0.8); Monocytes % (Auto) 6.5 % (0.0-7.3); Platelet Count 240 K/mm3 (140-440); Red Blood Count 4.45 M/mm3 (3.65-5.03); Red Cell Distribution Width 14.4 % (13.2-15.2)
[2018-09-21 05:05] LABS: BUN/Creatinine Ratio 16; Blood Urea Nitrogen 8 mg/dL (7-17); Calcium 7.8 mg/dL (8.4-10.2); Hemolysis Index 113
[2018-09-21] MEDS: FLAGYL 500 MG/100 ML 500 MG/100 ML BAG IV SCH ×3 (05:20→22:04)
[2018-09-21 05:27] LABS: Alanine Aminotransferase 19 units/L (7-56)
--- NOTE | 2018-09-21 08:00 | Progress Note ---
Assessment and Plan CT avbdommen and pelvis of 09/16/18 IMPRESSION: Severely limited examination by low intra-abdominal fat, lack of IV and oral contrast, and arms at the patient's side Slight diverticulosis descending and sigmoid colon. Nonspecific fat stranding and trace free fluid adjacent to the descending colon may reflect mild diverticulitis Lung base emphysema. Large consolidation left lower lobe may be atelectasis and/or pneumonia Large calcified gallstone in gallbladder lumen Suggestion of adrenal hypertrophy, more on the left Left renal hilar calcifications may be atherosclerotic. Small pelvic calcification not excluded. Suggestion of nonspecific slight left hydronephrosis Nonspecific gastric distention may reflect outlet obstruction and/or gastroparesis Fat stranding in the pelvic mesentery may be scarring or peritonitis. Differential includes anasarca Nondistention of the urinary bladder Nonspecific gas filled prominence of stool in the rectum and transverse colon may reflect paralytic ileus with mild constipation Severe dehydration with hypernatremia pt declined tube feeding placement change to D5W and monitor chemistry closely am labs\ Dobb off placement ordered. Severe protein calorie Malnutrition Discussed with pt's POA agrees that patients may have a PEG tube placed She has been having difficulty swallowing for very long time she started. Severe sepsis syndrome 2/2 Aspiration PNA continue IV abx monitor wbc closely Mild Diverticulitis Continue with IV antibiotics and nothing by mouth Hypokalemia- corrected Hyporgamesemia- supplement ReCheck magnesium level Aspiration Pneumonia aspiration precautions at all times NPO status h/o CVA with focal deficits fall precautions at all times HTN prn IV bp meds Severe Adult FTT insert feeding tube Chronic Physical deconditioning PT/OT to eval and treat Full code status Further pt mgt per hospital course Disposition Plan: Awaiting patient decision on Discussed with pt's family memeber clara is POA at [phone]. Stated she had had swallowing problem for a long time and will prefer a PEG tub eto be place. T transferring to SNF Total Time Spent with Patient (Minutes): More than 30mins spent Subjective Date of service: 09/21/18 Principal diagnosis: sepsis, aspiration pneumonia, particularly amount of dictation. Interval history: Patient seen and examined. Leg quietly in bed. Remains afebrile. Confused No chest pain. Objective - Exam Narrative Exam: Constitutional: Malnourished. Confused. In no distress Head: Normocephalic atraumatic Eyes: Pupils are equal round and reactive to light Nose: No enlarged turbinates, no septal deviation. Mouth: Moist mucous membranes. Neck: Supple no thyromegaly. No bruit. No JVD Heart: Regular rate and rhythm, S1-S2 normal. No rubs murmurs or gallop Lungs: Clear to auscultation bilaterally. no rales or rhonchi Abdomen: Soft, nontender. Bowel sound are present. Extremities: No edema, no cyanosis, no clubbing. Neuro: Alert oriented Oriented x3. No focal sensory or motor deficit. Skin: No rashes or hyperpigmented spots Musculoskeletal system: No joint pain or swelling Hematological: No petechia or subcutanous hemorrhages. Immunological: No multiple septic spots on the skin Lymphatic: No generalized lymphadenopathy Psychiatry: Euthymic. Calm. - Constitutional Vitals: Vital Signs - 12hr 09/20/18 09/20/18 09/20/18 20:17 20:28 20:38 Temperature Pulse Rate Pulse Rate [ 78 Right Brachial] Respiratory Rate Blood Pressure 170/94 O2 Sat by Pulse 98 96 Oximetry 09/20/18 09/21/18 09/21/18 20:39 02:47 02:48 Temperature 98.3 F 98.8 F Pulse Rate 70 35 L 87 Pulse Rate [ Right Brachial] Respiratory 20 20 Rate Blood Pressure 142/88 O2 Sat by Pulse 97 87 94 Oximetry - Labs CBC & Chem 7: 09/21/18 03:44 09/21/18 03:44 Labs: Abnormal lab results 09/21/18 09/21/18 Range/Units 03:44 03:44 WBC 12.5 H (4.5-11.0) K/mm3 MCH 27 L (28-32) pg Seg Neutrophils % 75.2 H (40.0-70.0) % Seg Neutrophils # 9.4 H (1.8-7.7) K/mm3 Creatinine 0.5 L (0.7-1.2) mg/dL Calcium 7.8 L (8.4-10.2) mg/dL Magnesium 1.20 L (1.7-2.3) mg/dL AST 41 H (5-40) units/L Total Protein 6.0 L (6.3-8.2) g/dL Albumin 2.0 L (3.9-5) g/dL
[2018-09-21] MEDS: ROCEPHIN/NS 2 GM/100 ML 2 GM/100 ML BAG IV SCH (08:04)
[2018-09-21] MEDS: SODIUM CHLORIDE FLUSH SYRINGE 10 ML IV SCH ×2 (09:40→22:02)
[2018-09-21] MEDS: PEPCID IV SCH (09:42)
[2018-09-21] MEDS ORDERED: MAGNESIUM SULFATE 2GM/50ML 2 GM/50 ML BAG IV ONE (11:00)
[2018-09-21] MEDS: D5W 1,000 ML IV SCH (17:49)
[2018-09-21] MEDS: LOVENOX SUB-Q SCH (22:02)
[2018-09-22] MEDS: D5W 1,000 ML IV SCH ×2 (04:12→17:14)
[2018-09-22 04:24] LABS: Hematocrit 38.3 % (30.3-42.9); Hemoglobin 12.4 gm/dl (10.1-14.3); Mean Corpuscular HGB Conc 32 % (30-34); Mean Corpuscular Volume 81 fl (79-97); Platelet Count 316 K/mm3 (140-440); Red Blood Count 4.71 M/mm3 (3.65-5.03); Red Cell Distribution Width 14.2 % (13.2-15.2)
[2018-09-22 04:37] LABS: Albumin 1.9 g/dL (3.9-5); BUN/Creatinine Ratio 10; Blood Urea Nitrogen 5 mg/dL (7-17); Calcium 7.7 mg/dL (8.4-10.2); Hemolysis Index 160
[2018-09-22 04:41] LABS: Alanine Aminotransferase 19 units/L (7-56)
[2018-09-22 05:14] LABS: Basophils % (Manual) 0 % (0.0-1.8); Eosinophils % (Manual) 0 % (0.0-4.3); Total Cells Counted 100
[2018-09-22 05:15] LABS: Schistocytes Rare
[2018-09-22 05:16] LABS: Target Cells 1+
[2018-09-22 05:17] LABS: Hypochromasia Few; Ovalocytes Few; Platelet Estimate Consistent w Auto
[2018-09-22] MEDS: FLAGYL 500 MG/100 ML 500 MG/100 ML BAG IV SCH ×3 (05:29→21:41)
[2018-09-22] MEDS: ROCEPHIN/NS 2 GM/100 ML 2 GM/100 ML BAG IV SCH (07:41)
--- NOTE | 2018-09-22 08:57 | Progress Note ---
Assessment and Plan Cultures: 09/16/2018 urine culture: Mixed growth 09/16/2018 blood culture: No growth thus far A/P: 68-year-old female with previous stroke and resultant aphasia admitted with: 1) Severe sepsis leukocytosis better,, likely secondary to left lower lobe pneumonia: Patient does have a aphasia and with her prior stroke, aspiration is certainly possible especially since the patient seems to be preferring to lay on her left side and reportedly came with vomiting. 2) Acute respiratory failure: Secondary to pneumonia.. Swallowing function was assessed. Patient is at risk for aspiration. NPO is recommended 3) Urinary tract infection: Follow up urine cultures. Continue ceftriaxone for now. 4) Large calcific gallstone: Patient without any specific right upper quadrant tenderness on exam or LFT derangement. Will obtain right upper quadrant ultrasound. -RUQ u/s - cholelithiasis with large stone at the neck of the gallbladder. Wall is normal, no pericholecystic fluid. Dilatation of CBD, no surgical intervention at this time - Surgery following 5) TORI: monitor creatinine. 6) N/V/D: monitor for now. Recs: Continue ceftriaxone D6 of D7 Continue Flagyl, D6 of D7 Follow-up culture results and clinical course ID is signing off [facility] M: [id number] O:[phone] Subjective Date of service: 09/22/18 Principal diagnosis: sepsis, aspiration pneumonia, particularly amount of dictation. Interval history: Patient seen and examined. Nonverbal at baseline. No acute distress observed. Family not a bedside. Objective - Exam Narrative Exam: Constitutional: awake, alert. No acute distress. Cachexia + Head, Ears, Nose: Normocephalic, atraumatic. External ears, nose normal Eyes: Conjunctivae/corneas clear. No icterus. No ptosis. Neck: Supple, no meningeal signs Oral: unable to examine Cardiovascular: S1, S2 normal. Respiratory: RRR, clear to auscultation GI: Soft, non-tender; bowel sounds normal. No peritoneal signs Musculoskeletal: No pedal edema, no cyanosis. Skin: No rash or abscess Hem/Lymphatic: No palpable cervical or supraclavicular nodes. No lymphangitis Psych: no agitation Neurological: Awake, alert, non verbal - Constitutional Vitals: Vital Signs Temp Pulse Resp BP Pulse Ox 98.3 F 74 18 153/80 97 09/22/18 07:22 09/22/18 07:22 09/22/18 07:22 09/22/18 07:22 09/22/18 07:44 Temperature -Last 24 Hours Temperature 98.3 F Temperature 99.2 F Temperature 99.4 F - Labs CBC & Chem 7: 09/22/18 03:22 09/22/18 03:22 Labs: Abnormal lab results 09/22/18 09/22/18 Range/Units 03:22 03:22 WBC 11.4 H (4.5-11.0) K/mm3 MCH 26 L (28-32) pg Seg Neuts % (Manual) 84.0 H (40.0-70.0) % Lymphocytes % (Manual) 12.0 L (13.4-35.0) % Seg Neutrophils # Man 9.6 H (1.8-7.7) K/mm3 BUN 5 L (7-17) mg/dL Creatinine 0.5 L (0.7-1.2) mg/dL Calcium 7.7 L (8.4-10.2) mg/dL Total Protein 6.0 L (6.3-8.2) g/dL Albumin 1.9 L (3.9-5) g/dL
--- NOTE | 2018-09-22 09:03 | Progress Note ---
Assessment and Plan CT avbdommen and pelvis of 09/16/18 IMPRESSION: Severely limited examination by low intra-abdominal fat, lack of IV and oral contrast, and arms at the patient's side Slight diverticulosis descending and sigmoid colon. Nonspecific fat stranding and trace free fluid adjacent to the descending colon may reflect mild diverticulitis Lung base emphysema. Large consolidation left lower lobe may be atelectasis and/or pneumonia Large calcified gallstone in gallbladder lumen Suggestion of adrenal hypertrophy, more on the left Left renal hilar calcifications may be atherosclerotic. Small pelvic calcification not excluded. Suggestion of nonspecific slight left hydronephrosis Nonspecific gastric distention may reflect outlet obstruction and/or gastroparesis Fat stranding in the pelvic mesentery may be scarring or peritonitis. Differential includes anasarca Nondistention of the urinary bladder Nonspecific gas filled prominence of stool in the rectum and transverse colon may reflect paralytic ileus with mild constipation Severe dehydration with hypernatremia - resolved change to D5W and monitor chemistry closely am labs\ Awaiting PEG tube placement Severe protein calorie Malnutrition Discussed with pt's POA agrees that patients may have a PEG tube placed She has been having difficulty swallowing for very long time she started. Severe sepsis syndrome 2/2 Aspiration PNA continue IV abx. Dicussed with ID. to complete antibiotic today wbc closely Mild Diverticulitis Continue with IV antibiotics and nothing by mouth Hypokalemia- corrected Hyporgamesemia- supplement ReCheck magnesium level Aspiration Pneumonia aspiration precautions at all times NPO status h/o CVA with focal deficits fall precautions at all times HTN prn IV bp meds Severe Adult FTT insert feeding tube Chronic Physical deconditioning PT/OT to eval and treat Full code status Further pt mgt per hospital course Disposition Plan: Awaiting patient decision on Discussed with pt's family memeber she is POA at [phone]. Stated she had had swallowing problem for a long time and will prefer a PEG tube to be place. Then transferring to SNF Total Time Spent with Patient (Minutes): More than 35 minmins spent Subjective Date of service: 09/22/18 Principal diagnosis: sepsis, aspiration pneumonia, particularly amount of dictation. Interval history: Patient seen and examined. Leg quietly in bed. Remains afebrile. Confused No chest pain. For PEG tub placement Objective - Exam Narrative Exam: Constitutional: Malnourished. Confused. In no distress Head: Normocephalic atraumatic Eyes: Pupils are equal round and reactive to light Nose: No enlarged turbinates, no septal deviation. Mouth: Moist mucous membranes. Neck: Supple no thyromegaly. No bruit. No JVD Heart: Regular rate and rhythm, S1-S2 normal. No rubs murmurs or gallop Lungs: Clear to auscultation bilaterally. no rales or rhonchi Abdomen: Soft, nontender. Bowel sound are present. Extremities: No edema, no cyanosis, no clubbing. Neuro: Alert oriented Oriented x3. No focal sensory or motor deficit. Skin: No rashes or hyperpigmented spots Musculoskeletal system: No joint pain or swelling Hematological: No petechia or subcutanous hemorrhages. Immunological: No multiple septic spots on the skin Lymphatic: No generalized lymphadenopathy Psychiatry: Euthymic. Calm. - Constitutional Vitals: Vital Signs - 12hr 09/21/18 09/22/18 09/22/18 21:24 07:22 07:44 Temperature 98.3 F Pulse Rate 74 Respiratory 18 Rate Blood Pressure 153/80 O2 Sat by Pulse 95 98 97 Oximetry - Labs CBC & Chem 7: 09/22/18 03:22 09/22/18 03:22 Labs: Abnormal lab results 09/22/18 09/22/18 Range/Units 03:22 03:22 WBC 11.4 H (4.5-11.0) K/mm3 MCH 26 L (28-32) pg Seg Neuts % (Manual) 84.0 H (40.0-70.0) % Lymphocytes % (Manual) 12.0 L (13.4-35.0) % Seg Neutrophils # Man 9.6 H (1.8-7.7) K/mm3 BUN 5 L (7-17) mg/dL Creatinine 0.5 L (0.7-1.2) mg/dL Calcium 7.7 L (8.4-10.2) mg/dL Total Protein 6.0 L (6.3-8.2) g/dL Albumin 1.9 L (3.9-5) g/dL
[2018-09-22] MEDS: PEPCID IV SCH (09:16)
[2018-09-22] MEDS: SODIUM CHLORIDE FLUSH SYRINGE 10 ML IV SCH ×2 (09:17→21:41)
--- NOTE | 2018-09-22 10:11 | Gastroenterology Consultation ---
History of Present Illness - Reason for Consult Consult date: 09/22/18 PEG tube placement Requesting physician: SAHARA POWERS - History of Present Illness This is 68 yo AAF with pmh of COPD, CVA with aphasia, HTN, and failure to thrive admitted for sepsis due to pneumonia and cystitis after presenting with weakness and nausea/vomiting. GI consulted for placement of PEG tube placement for nutrition. Patient has been on antibiotic treatment for sepsis and wbc trending down. nausea/vomiting resolved. CT imaging without contrast showed gallstones and abdominal US showed mild dilation of CBD however, bilirubin and alk phos normal and no clinical symptoms to suggest cholecystitis. Surgery was consulted earlier. Spoke with patient niece, ALBERTA on the phone. She states patient was taking PO with pureed foods and ambulatory prior to admission. She would like to have PEG tube placement for nutrition. 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) Family history: no significant family history Medications and Allergies Allergies Allergy/AdvReac Type Severity Reaction Status Date / Time No Known Allergies Allergy Unverified 09/16/18 17:05 Home Medications Medication Instructions Recorded Confirmed Last Taken Type ALBUTEROL Inhaler(NF) [VENTOLIN 1 puff IH PRN 09/17/18 09/17/18 Unknown History Inhaler(NF)] Lisinopril [Zestril TAB] 40 mg PO QDAY 09/17/18 09/17/18 09/15/18 10:00 History amLODIPine [Norvasc] 10 mg PO DAILY 09/17/18 09/17/18 09/15/18 10:00 History Active Meds: Active Medications Acetaminophen (Tylenol) 650 mg PO Q4H PRN PRN Reason: Pain MILD(1-3)/Fever >100.5/WHATLEY Enoxaparin Sodium (Lovenox) 40 mg SUB-Q QHS [facility] Last Admin: 09/21/18 22:02 Dose: 40 mg Documented by: Famotidine (Pepcid) 20 mg IV QDAY [facility] Last Admin: 09/22/18 09:16 Dose: 20 mg Documented by: Hydromorphone HCl (Dilaudid) 0.5 mg IV Q3H PRN PRN Reason: Pain , Severe (7-10) Ceftriaxone Sodium (Rocephin/Ns 2 Gm/100 Ml) 2 gm in 100 mls @ 200 mls/hr IV Q24H [facility]; Protocol Last Admin: 09/22/18 07:41 Dose: 200 mls/hr Documented by: Metronidazole (Flagyl 500 Mg/100 Ml) 500 mg in 100 mls @ 100 mls/hr IV Q8H [facility]Y; Protocol Last Admin: 09/22/18 05:29 Dose: 100 mls/hr Documented by: Dextrose (D5w) 1,000 mls @ 100 mls/hr IV DIRECT [facility]Y Last Admin: 09/22/18 04:12 Dose: 100 mls/hr Documented by: Ondansetron HCl (Zofran) 4 mg IV Q8H PRN PRN Reason: Nausea And Vomiting Sodium Chloride (Sodium Chloride Flush Syringe 10 Ml) 10 ml IV BID GERRY Last Admin: 09/22/18 09:17 Dose: 10 ml Documented by: Sodium Chloride (Sodium Chloride Flush Syringe 10 Ml) 10 ml IV PRN PRN PRN Reason: LINE FLUSH Review of Systems - Review of Systems ROS unobtainable: due to mental status Exam - Constitutional Vital Signs: Temp Pulse Resp BP Pulse Ox 98.3 F 74 18 153/80 97 09/22/18 07:22 09/22/18 07:22 09/22/18 07:22 09/22/18 07:22 09/22/18 07:44 General appearance: no acute distress - EENT Eyes: EOM intact - Neck Neck: supple - Respiratory Respiratory: bilateral: diminished - Cardiovascular Rhythm: regular Heart Sounds: Present: S1 & S2 - Gastrointestinal General gastrointestinal: Present: soft, non-tender, non-distended - Neurologic Neurological: other (nonverbal) - Labs CBC & Chem 7: 09/22/18 03:22 09/22/18 03:22 Lab Results: Laboratory Results - last 24 hr 09/22/18 09/22/18 03:22 03:22 WBC 11.4 H RBC 4.71 Hgb 12.4 Hct 38.3 MCV 81 MCH 26 L MCHC 32 RDW 14.2 Plt Count 316 Add Manual Diff Complete Total Counted 100 Seg Neuts % (Manual) 84.0 H Band Neutrophils % 0 Lymphocytes % (Manual) 12.0 L Reactive Lymphs % (Man) 0 Monocytes % (Manual) 4.0 Eosinophils % (Manual) 0 Basophils % (Manual) 0 Metamyelocytes % 0 Myelocytes % 0 Promyelocytes % 0 Blast Cells % 0 Nucleated RBC % Not Reportable Seg Neutrophils # Man 9.6 H Band Neutrophils # 0.0 Lymphocytes # (Manual) 1.4 Abs React Lymphs (Man) 0.0 Monocytes # (Manual) 0.5 Eosinophils # (Manual) 0.0 Basophils # (Manual) 0.0 Metamyelocytes # 0.0 Myelocytes # 0.0 Promyelocytes # 0.0 Blast Cells # 0.0 WBC Morphology Not Reportable Hypersegmented Neuts Not Reportable Hyposegmented Neuts Not Reportable Hypogranular Neuts Not Reportable Smudge Cells Not Reportable Toxic Granulation Not Reportable Toxic Vacuolation Not Reportable Dohle Bodies Not Reportable Pelger-Huet Anomaly Not Reportable Martha Rods Not Reportable Platelet Estimate Consistent w auto Clumped Platelets Not Reportable Plt Clumps, EDTA Not Reportable Large Platelets Not Reportable Giant Platelets Not Reportable Platelet Satelliting Not Reportable Plt Morphology Comment Not Reportable RBC Morphology Not Reportable Dimorphic RBCs Not Reportable Polychromasia Not Reportable Hypochromasia Few Poikilocytosis Not Reportable Anisocytosis Not Reportable Microcytosis Not Reportable Macrocytosis Not Reportable Spherocytes Not Reportable Pappenheimer Bodies Not Reportable Sickle Cells Not Reportable Target Cells 1+ Tear Drop Cells Not Reportable Ovalocytes Few Helmet Cells Not Reportable Schofield-[place] Bodies Not Reportable [place] Rings Not Reportable [place] Cells Not Reportable Bite Cells Not Reportable Crenated Cell Not Reportable Elliptocytes Not Reportable Acanthocytes (Spur) Not Reportable Rouleaux Not Reportable Hemoglobin C Crystals Not Reportable Schistocytes Rare Malaria parasites Not Reportable Brandin Bodies Not Reportable Hem Pathologist Commnt No Sodium 139 Potassium 3.7 Chloride 100.3 Carbon Dioxide 29 Anion Gap 13 BUN 5 L Creatinine 0.5 L Estimated GFR > 60 BUN/Creatinine Ratio 10 Glucose 82 Calcium 7.7 L Total Bilirubin 0.30 AST 38 ALT 19 Alkaline Phosphatase 58 Total Protein 6.0 L Albumin 1.9 L Albumin/Globulin Ratio 0.5 - Imaging CT Scan: report reviewed Ultrasound: report reviewed Assessment and Plan This is 68 yo AAF with pmh of COPD, CVA with aphasia, HTN, and failure to thrive admitted for sepsis due to pneumonia and cystitis after presenting with weakness and nausea/vomiting. GI consulted for placement of PEG tube placement for nutrition. # Failure to thrive - Spoke with patient niece, BESSA on the phone. She states patient was taking PO with pureed foods and ambulatory prior to admission. She would like to have PEG tube placement for nutrition. - speech evaluation was ordered but cannot locate any report. Will need to find out how she did with speech evaluation. Based on speech eval, will plan for PEG tube placement tomorrow patient not able to take in enough PO or has signs of aspiration. - check INR.
[2018-09-22] MEDS: LOVENOX SUB-Q SCH (21:41)
[2018-09-23] MEDS: PROVENTIL IH SCH ×3 (02:13→20:33)
[2018-09-23] MEDS: D5W 1,000 ML IV SCH (04:04)
[2018-09-23] MEDS: FLAGYL 500 MG/100 ML 500 MG/100 ML BAG IV SCH ×2 (05:30→13:18)
[2018-09-23 05:47] LABS: Hematocrit 34.5 % (30.3-42.9); Hemoglobin 11.3 gm/dl (10.1-14.3); Mean Corpuscular HGB Conc 33 % (30-34); Mean Corpuscular Volume 82 fl (79-97); Platelet Count 348 K/mm3 (140-440); Red Cell Distribution Width 14.1 % (13.2-15.2)
[2018-09-23 06:09] LABS: Alanine Aminotransferase 17 units/L (7-56); Albumin 2.1 g/dL (3.9-5); BUN/Creatinine Ratio 10; Blood Urea Nitrogen 5 mg/dL (7-17); Calcium 7.7 mg/dL (8.4-10.2); Hemolysis Index 60
[2018-09-23] MEDS ORDERED: K-DUR PO ONE (06:51)
[2018-09-23] MEDS: ROCEPHIN/NS 2 GM/100 ML 2 GM/100 ML BAG IV SCH (07:12)
[2018-09-23 08:26] LABS: Basophils % (Manual) 0 % (0.0-1.8); Myelocytes # (Manual) 0.2 K/mm3; Total Cells Counted 100
[2018-09-23 08:28] LABS: Ovalocytes Few; Platelet Estimate Consistent w Auto; Poikilocytosis 1+
[2018-09-23] MEDS: SODIUM CHLORIDE FLUSH SYRINGE 10 ML IV SCH ×2 (09:11→22:01)
[2018-09-23] MEDS: PEPCID IV SCH (09:11)
--- NOTE | 2018-09-23 13:21 | Gastroenterology Progress Note ---
Addendum entered and electronically signed by YEIMY MICHAELS MD 09/23/18 16:47: Patient seen and examined on 09/23/2018. Patient had re-evaluation today due to coughing and choking with diet. Will plan for EGD/PEG tomorrow based on MBS results. Original Note: Assessment and Plan This is 68 yo AAF with pmh of COPD, CVA with aphasia, HTN, and failure to thrive admitted for sepsis due to pneumonia and cystitis after presenting with weakness and nausea/vomiting. GI consulted for placement of PEG tube placement for nutr ition. 1. Failure to thrive - Spoke with patient nieceALBERTA on the phone. She states patient was taking PO with pureed foods and ambulatory prior to admission. She would like to have PEG tube placement for nutrition. -per speech eval patient safe for pureed diet, however she had noted coughing/ch oking with diet this am for breakfast per nursing -MBS pending for further evaluation -will consider EGD/PEG based on above results -will follow Subjective Date of service: 09/23/18 Principal diagnosis: PEG Interval history: No acute distress. Tolerated pureed diet last night but per nursing had difficulty eating breakfast with noted coughing/choking. Objective - Constitutional Vitals: Temp Pulse Resp BP Pulse Ox 98.5 F 76 18 130/69 95 09/23/18 07:58 09/23/18 10:00 09/23/18 07:58 09/23/18 07:58 09/23/18 10:00 General appearance: no acute distress - Respiratory Respiratory: bilateral: diminished - Cardiovascular Rhythm: regular Heart Sounds: Present: S1 & S2 - Gastrointestinal General gastrointestinal: Present: soft, non-distended, normal bowel sounds - Labs CBC & Chem 7: 09/23/18 04:50 09/23/18 04:50 Labs: Laboratory Results - last 24 hr 09/23/18 09/23/18 04:50 04:50 WBC 11.2 H RBC 4.20 Hgb 11.3 Hct 34.5 MCV 82 MCH 27 L MCHC 33 RDW 14.1 Plt Count 348 Add Manual Diff Complete Total Counted 100 Seg Neuts % (Manual) 80.0 H Band Neutrophils % 0 Lymphocytes % (Manual) 10.0 L Reactive Lymphs % (Man) 0 Monocytes % (Manual) 6.0 Eosinophils % (Manual) 2.0 Basophils % (Manual) 0 Metamyelocytes % 0 Myelocytes % 2.0 Promyelocytes % 0 Blast Cells % 0 Nucleated RBC % Not Reportable Seg Neutrophils # Man 9.0 H Band Neutrophils # 0.0 Lymphocytes # (Manual) 1.1 L Abs React Lymphs (Man) 0.0 Monocytes # (Manual) 0.7 Eosinophils # (Manual) 0.2 Basophils # (Manual) 0.0 Metamyelocytes # 0.0 Myelocytes # 0.2 Promyelocytes # 0.0 Blast Cells # 0.0 WBC Morphology Not Reportable Hypersegmented Neuts Not Reportable Hyposegmented Neuts Not Reportable Hypogranular Neuts Not Reportable Smudge Cells Not Reportable Toxic Granulation Not Reportable Toxic Vacuolation Not Reportable Dohle Bodies Not Reportable Pelger-Huet Anomaly Not Reportable Martha Rods Not Reportable Platelet Estimate Consistent w auto Clumped Platelets Not Reportable Plt Clumps, EDTA Not Reportable Large Platelets Not Reportable Giant Platelets Not Reportable Platelet Satelliting Not Reportable Plt Morphology Comment Not Reportable RBC Morphology Not Reportable Dimorphic RBCs Not Reportable Polychromasia Not Reportable Hypochromasia Not Reportable Poikilocytosis 1+ Anisocytosis Not Reportable Microcytosis Not Reportable Macrocytosis Not Reportable Spherocytes Not Reportable Pappenheimer Bodies Not Reportable Sickle Cells Not Reportable Target Cells Not Reportable Tear Drop Cells Not Reportable Ovalocytes Few Helmet Cells Not Reportable Schofield-[place] Bodies Not Reportable [place] Rings Not Reportable [place] Cells Not Reportable Bite Cells Not Reportable Crenated Cell Not Reportable Elliptocytes Not Reportable Acanthocytes (Spur) Not Reportable Rouleaux Not Reportable Hemoglobin C Crystals Not Reportable Schistocytes Not Reportable Malaria parasites Not Reportable Brandin Bodies Not Reportable Hem Pathologist Commnt No Sodium 138 Potassium 2.9 L* D Chloride 97.1 L Carbon Dioxide 28 Anion Gap 16 BUN 5 L Creatinine 0.5 L Estimated GFR > 60 BUN/Creatinine Ratio 10 Glucose 87 Calcium 7.7 L Magnesium 1.30 L Total Bilirubin 0.20 AST 32 ALT 17 Alkaline Phosphatase 62 Total Protein 5.7 L Albumin 2.1 L Albumin/Globulin Ratio 0.6
--- NOTE | 2018-09-23 14:32 | Progress Note ---
Assessment and Plan Assessment and plan: Severe dehydration with hypernatremia -resolved Severe protein calorie Malnutrition -awaiting peg tube placement Severe sepsis syndrome 2/2 Aspiration PNA -off Rocephin, to complete falgyl today -cont aspiration precautions -blood cultures neg UTI -completed Rocephin -urine culture neg Hyokalemia and Hypomagnesemia -on repletion, will monitor Mild Acute Diverticulitis -improved -Continue with IV Flagyl to complete today h/o CVA with focal deficits -cont fall precautions and supportive care HTN -on PRN hydralazine Severe Adult FTT with BMI of 18.3 -awaiting peg tube placement Chronic debility -PT/OT following Disp: for d/c when medically stable History Interval history: Pt is unable to communicate appropriately. No reported issues overnight Hospitalist Physical - Constitutional Vitals: Temp Pulse Resp BP Pulse Ox 98.5 F 76 18 130/69 95 09/23/18 07:58 09/23/18 10:00 09/23/18 07:58 09/23/18 07:58 09/23/18 10:00 General appearance: Present: no acute distress - EENT Eyes: Present: PERRL, EOM intact ENT: hearing intact, clear oral mucosa - Neck Neck: Present: supple - Respiratory Respiratory effort: normal Respiratory: negative: CTA - Cardiovascular Rhythm: regular Heart Sounds: Present: S1 & S2 - Extremities Extremities: No edema - Abdominal General gastrointestinal: soft, non-tender, normal bowel sounds - Neurologic Neurologic: other (awake and oriented to person only) Results - Labs CBC & Chem 7: 09/23/18 04:50 09/23/18 04:50 Labs: Laboratory Last Values WBC 11.2 K/mm3 (4.5-11.0) H 09/23/18 04:50 RBC 4.20 M/mm3 (3.65-5.03) 09/23/18 04:50 Hgb 11.3 gm/dl (10.1-14.3) 09/23/18 04:50 Hct 34.5 % (30.3-42.9) 09/23/18 04:50 MCV 82 fl (79-97) 09/23/18 04:50 MCH 27 pg (28-32) L 09/23/18 04:50 MCHC 33 % (30-34) 09/23/18 04:50 RDW 14.1 % (13.2-15.2) 09/23/18 04:50 Plt Count 348 K/mm3 (140-440) 09/23/18 04:50 Lymph % (Auto) 16.4 % (13.4-35.0) 09/21/18 03:44 Dickens % (Auto) 6.5 % (0.0-7.3) 09/21/18 03:44 Eos % (Auto) 1.7 % (0.0-4.3) 09/21/18 03:44 Baso % (Auto) 0.2 % (0.0-1.8) 09/21/18 03:44 Lymph # 2.1 K/mm3 (1.2-5.4) 09/21/18 03:44 Dickens # 0.8 K/mm3 (0.0-0.8) 09/21/18 03:44 Eos # 0.2 K/mm3 (0.0-0.4) 09/21/18 03:44 Baso # 0.0 K/mm3 (0.0-0.1) 09/21/18 03:44 Add Manual Diff Complete 09/23/18 04:50 Total Counted 100 09/23/18 04:50 Seg Neutrophils % 75.2 % (40.0-70.0) H 09/21/18 03:44 Seg Neuts % (Manual) 80.0 % (40.0-70.0) H 09/23/18 04:50 Band Neutrophils % 0 % 09/23/18 04:50 Lymphocytes % (Manual) 10.0 % (13.4-35.0) L 09/23/18 04:50 Reactive Lymphs % (Man) 0 % 09/23/18 04:50 Monocytes % (Manual) 6.0 % (0.0-7.3) 09/23/18 04:50 Eosinophils % (Manual) 2.0 % (0.0-4.3) 09/23/18 04:50 Basophils % (Manual) 0 % (0.0-1.8) 09/23/18 04:50 Metamyelocytes % 0 % 09/23/18 04:50 Myelocytes % 2.0 % 09/23/18 04:50 Promyelocytes % 0 % 09/23/18 04:50 Blast Cells % 0 % 09/23/18 04:50 Nucleated RBC % Not Reportable 09/23/18 04:50 Seg Neutrophils # 9.4 K/mm3 (1.8-7.7) H 09/21/18 03:44 Seg Neutrophils # Man 9.0 K/mm3 (1.8-7.7) H 09/23/18 04:50 Band Neutrophils # 0.0 K/mm3 09/23/18 04:50 Lymphocytes # (Manual) 1.1 K/mm3 (1.2-5.4) L 09/23/18 04:50 Abs React Lymphs (Man) 0.0 K/mm3 09/23/18 04:50 Monocytes # (Manual) 0.7 K/mm3 (0.0-0.8) 09/23/18 04:50 Eosinophils # (Manual) 0.2 K/mm3 (0.0-0.4) 09/23/18 04:50 Basophils # (Manual) 0.0 K/mm3 (0.0-0.1) 09/23/18 04:50 Metamyelocytes # 0.0 K/mm3 09/23/18 04:50 Myelocytes # 0.2 K/mm3 09/23/18 04:50 Promyelocytes # 0.0 K/mm3 09/23/18 04:50 Blast Cells # 0.0 K/mm3 09/23/18 04:50 WBC Morphology Not Reportable 09/23/18 04:50 Hypersegmented Neuts Not Reportable 09/23/18 04:50 Hyposegmented Neuts Not Reportable 09/23/18 04:50 Hypogranular Neuts Not Reportable 09/23/18 04:50 Smudge Cells Not Reportable 09/23/18 04:50 Toxic Granulation Not Reportable 09/23/18 04:50 Toxic Vacuolation Not Reportable 09/23/18 04:50 Dohle Bodies Not Reportable 09/23/18 04:50 Pelger-Huet Anomaly Not Reportable 09/23/18 04:50 Martha Rods Not Reportable 09/23/18 04:50 Platelet Estimate Consistent w auto 09/23/18 04:50 Clumped Platelets Not Reportable 09/23/18 04:50 Plt Clumps, EDTA Not Reportable 09/23/18 04:50 Large Platelets Not Reportable 09/23/18 04:50 Giant Platelets Not Reportable 09/23/18 04:50 Platelet Satelliting Not Reportable 09/23/18 04:50 Plt Morphology Comment Not Reportable 09/23/18 04:50 RBC Morphology Not Reportable 09/23/18 04:50 Dimorphic RBCs Not Reportable 09/23/18 04:50 Polychromasia Not Reportable 09/23/18 04:50 Hypochromasia Not Reportable 09/23/18 04:50 Poikilocytosis 1+ 09/23/18 04:50 Anisocytosis Not Reportable 09/23/18 04:50 Microcytosis Not Reportable 09/23/18 04:50 Macrocytosis Not Reportable 09/23/18 04:50 Spherocytes Not Reportable 09/23/18 04:50 Pappenheimer Bodies Not Reportable 09/23/18 04:50 Sickle Cells Not Reportable 09/23/18 04:50 Target Cells Not Reportable 09/23/18 04:50 Tear Drop Cells Not Reportable 09/23/18 04:50 Ovalocytes Few 09/23/18 04:50 Helmet Cells Not Reportable 09/23/18 04:50 [place] Bodies Not Reportable 09/23/18 04:50 [place] Rings Not Reportable 09/23/18 04:50 [place] Cells Not Reportable 09/23/18 04:50 Bite Cells Not Reportable 09/23/18 04:50 Crenated Cell Not Reportable 09/23/18 04:50 Elliptocytes Not Reportable 09/23/18 04:50 Acanthocytes (Spur) Not Reportable 09/23/18 04:50 Rouleaux Not Reportable 09/23/18 04:50 Hemoglobin C Crystals Not Reportable 09/23/18 04:50 Schistocytes Not Reportable 09/23/18 04:50 Malaria parasites Not Reportable 09/23/18 04:50 Brandin Bodies Not Reportable 09/23/18 04:50 Hem Pathologist Commnt No 09/23/18 04:50 Sodium 138 mmol/L (137-145) 09/23/18 04:50 Potassium 2.9 mmol/L (3.6-5.0) L* D 09/23/18 04:50 Chloride 97.1 mmol/L (98-107) L 09/23/18 04:50 Carbon Dioxide 28 mmol/L (22-30) 09/23/18 04:50 Anion Gap 16 mmol/L 09/23/18 04:50 BUN 5 mg/dL (7-17) L 09/23/18 04:50 Creatinine 0.5 mg/dL (0.7-1.2) L 09/23/18 04:50 Estimated GFR > 60 ml/min 09/23/18 04:50 BUN/Creatinine Ratio 10 % 09/23/18 04:50 Glucose 87 mg/dL (65-100) 09/23/18 04:50 Hemoglobin A1c 5.2 % (4-6) 09/17/18 07:27 Lactic Acid 1.60 mmol/L (0.7-2.0) 09/17/18 05:41 Calcium 7.7 mg/dL (8.4-10.2) L 09/23/18 04:50 Magnesium 1.30 mg/dL (1.7-2.3) L 09/23/18 04:50 Total Bilirubin 0.20 mg/dL (0.1-1.2) 09/23/18 04:50 Direct Bilirubin < 0.2 mg/dL (0-0.2) 09/19/18 03:08 Indirect Bilirubin 0.0 mg/dL 09/19/18 03:08 AST 32 units/L (5-40) 09/23/18 04:50 ALT 17 units/L (7-56) 09/23/18 04:50 Alkaline Phosphatase 62 units/L (35-129) 09/23/18 04:50 Total Creatine Kinase 957 units/L (30-135) H 09/18/18 05:35 Total Protein 5.7 g/dL (6.3-8.2) L 09/23/18 04:50 Albumin 2.1 g/dL (3.9-5) L 09/23/18 04:50 Albumin/Globulin Ratio 0.6 % 09/23/18 04:50 Urine Color Lu (Yellow) 09/16/18 17:40 Urine Turbidity Cloudy (Clear) 09/16/18 17:40 Urine pH 5.0 (5.0-7.0) 09/16/18 17:40 Ur Specific [place] 1.019 (1.003-1.030) 09/16/18 17:40 Urine Protein 30 mg/dl mg/dL (Negative) 09/16/18 17:40 Urine Glucose (UA) Neg mg/dL (Negative) 09/16/18 17:40 Urine Ketones Neg mg/dL (Negative) 09/16/18 17:40 Urine Blood Sm (Negative) 09/16/18 17:40 Urine Nitrite Neg (Negative) 09/16/18 17:40 Urine Bilirubin Neg (Negative) 09/16/18 17:40 Urine Urobilinogen 4.0 mg/dL (<2.0) 09/16/18 17:40 Ur Leukocyte Esterase Mod (Negative) 09/16/18 17:40 Urine WBC (Auto) 84.0 /HPF (0.0-6.0) H 09/16/18 17:40 Urine RBC (Auto) 19.0 /HPF (0.0-6.0) 09/16/18 17:40 U Epithel Cells (Auto) 5.0 /HPF (0-13.0) 09/16/18 17:40 Urine Bacteria (Auto) 3+ /HPF (Negative) 09/16/18 17:40 Urine Mucus 3+ /HPF 09/16/18 17:40 Nutrition/Malnutrition Assess - Dietary Evaluation Nutrition/Malnutrition Findings: Nutrition Notes Start: 09/17/18 11:10 Freq: Status: Active Protocol: Document 09/23/18 12:03 (Rec: 09/23/18 12:55 [email or web address]) Co-Sign 09/23/18 12:03 LP Nutrition Notes Initial or Follow up Reassessment Current Diagnosis Acute Kidney Injury COPD Sepsis Hypertension Stroke Other Pertinent Diagnosis Aphasia, Dementia, UTI, Pneumonia Current Diet NPO Labs/Tests K- 2.9 Pertinent Medications Reviewed Height 5 ft 5 in Weight 49.8 kg [place] Body Weight (kg) 56.81 BMI 18.2 Subjective/Other Information F/u for PEG placement/TF initiation. Per RN, pt did not recieve PEG placement yesterday due to being able to eat effectively. However, pt. was not able to eat well today. Pt. is to recieve modified barium swallow today. Percent of energy/protein needs met: 0%/0% Burn Absent Trauma Absent GI Symptoms None Difficulty In Swallowing Current % PO Negligible Body Fat Depletion Moderate depletion (severe) Muscle Mass Moderate Depletion (severe) #1 Nutrition Diagnosis Malnutrition As Evidenced by Signs and Symptoms Pt BMI of 18.3, temporal wasting, interosseous fat wasting Diagnosis Progress(for reassessment Continues documentation) Is patient on ventilator? No Is Patient Ambulatory and/or Out of Bed No [facility] 1240.584 Kcal/Kg value to use for calculation 33 Approximate Energy Requirements Using 1643 kcal/Kg Calculation Used for Recommendations Kcal/kg Additional Notes Protein needs: (1.2-1.5 g/kg) (60-75 g/day) Fluid needs: 1 ml/kcal Nutrition Intervention Change Diet Order: Advance diet if medically feasible Nutrition Support: Initiate TF if modified barium swallow study is failed Goal #1 PO intakes or TF to meet at least 90-100% of energy and protein needs. Anticipated Discharge Needs: unable to determine at this time Follow-Up By: 09/25/18 Additional Comments F/u: Modified barium swallow study results
[2018-09-23] MEDS ORDERED: APRESOLINE IV PRN (14:42)
[2018-09-23] MEDS ORDERED: MORPHINE IV PRN (14:42)
[2018-09-23] MEDS ORDERED: MAGNESIUM SULFATE 4GM/100ML 4 GM/100 ML BAG IV ONE (15:00)
[2018-09-23] MEDS: D5W/0.45% NACL/KCL 20 MEQ 20 MEQ/1,000 ML BAG IV SCH (15:13)
[2018-09-23] MEDS: KCL 10MEQ/100ML 10 MEQ/100 ML BAG IV SCH ×4 (15:22→18:22)
[2018-09-23] MEDS: LOVENOX SUB-Q SCH (22:00)
[2018-09-24] MEDS: FLAGYL 500 MG/100 ML 500 MG/100 ML BAG IV SCH ×2 (01:08→05:58)
[2018-09-24] MEDS: D5W/0.45% NACL/KCL 20 MEQ 20 MEQ/1,000 ML BAG IV SCH (04:03)
[2018-09-24 05:04] LABS: Hematocrit 32.1 % (30.3-42.9); Hemoglobin 10.2 gm/dl (10.1-14.3); Mean Corpuscular HGB Conc 32 % (30-34); Mean Corpuscular Volume 82 fl (79-97); Platelet Count 445 K/mm3 (140-440); Red Blood Count 3.93 M/mm3 (3.65-5.03)
[2018-09-24 05:09] LABS: INR 1.32 (0.87-1.13)
[2018-09-24 06:03] LABS: Band Neutrophils # (Manual) 0.5 K/mm3; Basophils % (Manual) 0 % (0.0-1.8); Eosinophils % (Manual) 0 % (0.0-4.3); Monocytes % (Manual) 0 % (0.0-7.3); Total Cells Counted 100
[2018-09-24 06:04] LABS: Anisocytosis 1+; Giant Platelets Few; Helmet Cells Few; Ovalocytes 1+; Poikilocytosis 1+; Stomatocytes Few; Target Cells Rare
[2018-09-24 07:14] LABS: BUN/Creatinine Ratio 8; Blood Urea Nitrogen 3 mg/dL (7-17); Calcium 7.7 mg/dL (8.4-10.2); Hemolysis Index 32
[2018-09-24] MEDS ORDERED: ANCEF/STERILE WATER 2 GM/20 ML 2 GM/20 ML SYRINGE IV NR (08:00)
[2018-09-24] MEDS: SODIUM CHLORIDE FLUSH SYRINGE 10 ML IV SCH ×2 (08:59→22:01)
[2018-09-24] MEDS: PEPCID IV SCH (08:59)
[2018-09-24] MEDS: PROVENTIL IH SCH ×3 (09:28→21:18)
[2018-09-24] MEDS: NACL 0.9% 1000 ML 1,000 ML IV SCH ×2 (09:41→16:37)
[2018-09-24] MEDS ORDERED: ANCEF/STERILE WATER 2 GM/20 ML 2 GM/20 ML SYRINGE IV ONE (09:46)
[2018-09-24] MEDS ORDERED: WATER FOR IRRIG STERILE IR ONE (10:40)
--- NOTE | 2018-09-24 10:46 | Anesthesia Consultation ---
Anesthesia Consult and Med Hx Date of service: 09/24/18 - Airway Anesthetic Teeth Evaluation: Poor ROM Head & Neck: Adequate Mental/Hyoid Distance: Adequate Mallampati Class: Class II Intubation Access Assessment: Probably Good - Pre-Operative Health Status ASA Pre-Surgery Classification: ASA4 Proposed Anesthetic Plan: MAC - Pulmonary Hx Smoking: Yes (former) COPD: Yes - Cardiovascular System Hx Hypertension: Yes - Central Nervous System CVA: Yes (From record, non-verbal) Hx Psychiatric Problems: Yes (dementia) - Gastrointestinal Hx Gastroesophageal Reflux Disease: No (dysphagea)
--- NOTE | 2018-09-24 10:47 | Anesthesia Day of Surgery ---
Anesthesia Day of Surgery - Day of Surgery Patient Examined: Yes Patient H&P Reviewed: Yes Patient is NPO: Yes
[2018-09-24] MEDS ORDERED: DIPRIVAN 10 MG/ML IV ONE (10:54)
--- NOTE | 2018-09-24 11:34 | Operative Report ---
Operative Report Operative Report: Date of procedure: 09/24/2018 Preprocedure diagnosis: dysphagia, h/o CVA Postprocedure diagnosis: successful placement of PEG tube Endoscopist: Alexandr Foote M.D. Procedure: Percutaneous Endoscopic Gastrostomy Medications: Propofol per anesthesia. See separate records for details. Ancef 2 g IV prior to procedure. Estimated blood loss: 0 After careful discussion of the nature and purpose of the procedure as well as details of the technique, risks, benefits, and alternatives consent was obtained from the patient's family. The patient was placed in the supine position and medicated per anesthesia. On the external abdomen, there was a scar that appeared to be an old PEG site. The tip of the [employer] 570 EQ videoscope was carefully passed for him under direct vision into the esophagus and advanced into the stomach. The scope was then advanced to the pylorus into the duodenum. The descending duodenum duodenal bulb and pylorus were normal. The scope was then withdrawn into the antrum and the stomach insufflated with air. The antrum showed normal findings. The scope was then retroflexed and partially withdrawn. The cardia, fundus,and body were normal. After further insufflation of the stomach, a suitable gastrostomy site was selected by transillumination of the stomach, percutaneous compression and demonstration of good opposition of the stomach and abdominal wall. The abdomen was prepped and draped in sterile fashion. The needle and catheter were then inserted percutaneously into the stomach without difficulty under endoscopic observation. The needle was withdrawn followed by insertion of the guidewire through the catheter. The guidewire was grasped with the snare in position by total withdrawal of the endoscope. An EndoVive pull gastrostomy, 20 gauge, was pulled into place from the abdominal side of the wire to a snug fit at 1.5 cm at the abdominal skin. The external bumper was applied. The site was again dressed in sterile fashion and the procedure completed. The procedures was well-tolerated Conclusions: Status post percutaneous endoscopic gastrostomy Plan: Can start tube feeds after 4 hours per nutrition recommendations. Keep Head of bed elevated.
[2018-09-24] MEDS ORDERED: PROVENTIL IH NR (11:45)
[2018-09-24] MEDS ORDERED: PANCREAZE DR 10,500 UNIT FEEDTUBE PRN (13:20)
[2018-09-24] MEDS ORDERED: SODIUM BICARBONATE FEEDTUBE PRN (13:20)
[2018-09-24] MEDS ORDERED: SIMPLE SYRUP FEEDTUBE PRN ×2 (13:20)
--- NOTE | 2018-09-24 13:58 | Progress Note ---
Subjective Date of service: 09/24/18 Principal diagnosis: PEG Interval history: Patient was taken to PACU on 10L/min O2 facemask with SpO2 is 92%; all other VSS, although breathing appears to be more labored. Physical exam revelead more wet bilateral crackles than baseline. Breathing treatment with albuterol nebulizer was given. Sp02 went up to 96% but patient's general appearance did not change. Patient is awake but likely in respiratory distress. To establish current pulmonary function and to rule out unlikely aspiration event, chest X- ray has been ordered. Patient was transferred to stepdown unit with CXR results pending. Spoke to the patient's nurse and reiterated importance of tele monitoring and suggested consultation with hospitalist or cafe aide for further evaluation. Objective - Constitutional Vitals: Vital Signs - 12hr 09/24/18 09/24/18 09/24/18 03:33 07:21 09:12 Temperature 98.5 F 98.0 F 98.5 F Pulse Rate 76 64 74 Respiratory 18 20 16 Rate Blood Pressure 141/77 133/65 144/71 O2 Sat by Pulse 95 98 92 Oximetry 09/24/18 09/24/18 09/24/18 09:18 11:35 11:50 Temperature 98.5 F 97.7 F Pulse Rate 74 105 H 106 H Respiratory 16 24 29 H Rate Blood Pressure 144/71 116/71 157/76 O2 Sat by Pulse 92 93 96 Oximetry 09/24/18 09/24/18 12:05 12:25 Temperature Pulse Rate 107 H 102 H Respiratory 21 25 H Rate Blood Pressure 154/71 157/72 O2 Sat by Pulse 95 92 Oximetry - Labs CBC & Chem 7: 09/24/18 04:32 09/24/18 06:44 Labs: Abnormal lab results 09/23/18 09/24/18 09/24/18 Range/Units 21:50 04:32 04:32 WBC 11.4 H (4.5-11.0) K/mm3 MCH 26 L (28-32) pg Plt Count 445 H (140-440) K/mm3 Seg Neuts % (Manual) 85.0 H (40.0-70.0) % Lymphocytes % (Manual) 10.0 L (13.4-35.0) % Seg Neutrophils # Man 9.7 H (1.8-7.7) K/mm3 Lymphocytes # (Manual) 1.1 L (1.2-5.4) K/mm3 PT 17.2 H (12.2-14.9) Sec. INR 1.32 H (0.87-1.13) BUN (7-17) mg/dL Creatinine (0.7-1.2) mg/dL POC Glucose 110 H (70-105) Calcium (8.4-10.2) mg/dL 09/24/18 Range/Units 06:44 WBC (4.5-11.0) K/mm3 MCH (28-32) pg Plt Count (140-440) K/mm3 Seg Neuts % (Manual) (40.0-70.0) % Lymphocytes % (Manual) (13.4-35.0) % Seg Neutrophils # Man (1.8-7.7) K/mm3 Lymphocytes # (Manual) (1.2-5.4) K/mm3 PT (12.2-14.9) Sec. INR (0.87-1.13) BUN 3 L (7-17) mg/dL Creatinine 0.4 L (0.7-1.2) mg/dL POC Glucose (70-105) Calcium 7.7 L (8.4-10.2) mg/dL
--- NOTE | 2018-09-24 13:59 | Progress Note ---
Assessment and Plan Assessment and plan: New Acute respiratory failure with hypoxia s/p procedure -probably 2/2 aspiration -will do CXR -will start IV zosyn Severe dehydration with hypernatremia -resolved Severe protein calorie Malnutrition -s/p peg tube placement today Severe sepsis syndrome 2/2 Aspiration PNA -off antibiotics -cont aspiration precautions -blood cultures neg UTI -completed Rocephin -urine culture neg Hyokalemia and Hypomagnesemia -improved s/p repletion, will monitor Mild Acute Diverticulitis -resolved -off antibiotics h/o CVA with focal deficits -cont fall precautions and supportive care HTN -stable on PRN hydralazine Adult FTT with BMI of 18.3 -s/p peg tube placement today Chronic debility -PT/OT following Disp: for d/c when medically stable History Interval history: Patient was seen post PEG tube placement. She was noted to be requiring oxygen supplementation via non-re breather. There was concern that she probably aspirated during the procedure. Hospitalist Physical - Constitutional Vitals: Temp Pulse Resp BP Pulse Ox 97.7 F 102 H 25 H 157/72 92 09/24/18 11:35 09/24/18 12:25 09/24/18 12:25 09/24/18 12:25 09/24/18 12:25 General appearance: Present: no acute distress, mild distress - EENT Eyes: Present: PERRL, EOM intact ENT: hearing intact, clear oral mucosa - Neck Neck: Present: supple, normal ROM - Respiratory Respiratory effort: other (mildly tachypneic) Respiratory: bilateral: rales - Cardiovascular Rhythm: regular (tachycardia) Heart Sounds: Present: S1 & S2 - Extremities Extremities: No edema - Abdominal General gastrointestinal: soft, non-tender, normal bowel sounds, other (Peg tube noted) - Neurologic Neurologic: other (awake and responsive) Results - Labs CBC & Chem 7: 09/24/18 04:32 09/24/18 06:44 Labs: Laboratory Last Values WBC 11.4 K/mm3 (4.5-11.0) H 09/24/18 04:32 RBC 3.93 M/mm3 (3.65-5.03) 09/24/18 04:32 Hgb 10.2 gm/dl (10.1-14.3) 09/24/18 04:32 Hct 32.1 % (30.3-42.9) 09/24/18 04:32 MCV 82 fl (79-97) 09/24/18 04:32 MCH 26 pg (28-32) L 09/24/18 04:32 MCHC 32 % (30-34) 09/24/18 04:32 RDW 14.0 % (13.2-15.2) 09/24/18 04:32 Plt Count 445 K/mm3 (140-440) H 09/24/18 04:32 Lymph % (Auto) 16.4 % (13.4-35.0) 09/21/18 03:44 [place] % (Auto) 6.5 % (0.0-7.3) 09/21/18 03:44 Eos % (Auto) 1.7 % (0.0-4.3) 09/21/18 03:44 Baso % (Auto) 0.2 % (0.0-1.8) 09/21/18 03:44 Lymph # 2.1 K/mm3 (1.2-5.4) 09/21/18 03:44 [place] # 0.8 K/mm3 (0.0-0.8) 09/21/18 03:44 Eos # 0.2 K/mm3 (0.0-0.4) 09/21/18 03:44 Baso # 0.0 K/mm3 (0.0-0.1) 09/21/18 03:44 Add Manual Diff Complete 09/24/18 04:32 Total Counted 100 09/24/18 04:32 Seg Neutrophils % 75.2 % (40.0-70.0) H 09/21/18 03:44 Seg Neuts % (Manual) 85.0 % (40.0-70.0) H 09/24/18 04:32 Band Neutrophils % 4.0 % 09/24/18 04:32 Lymphocytes % (Manual) 10.0 % (13.4-35.0) L 09/24/18 04:32 Reactive Lymphs % (Man) 0 % 09/24/18 04:32 Monocytes % (Manual) 0 % (0.0-7.3) 09/24/18 04:32 Eosinophils % (Manual) 0 % (0.0-4.3) 09/24/18 04:32 Basophils % (Manual) 0 % (0.0-1.8) 09/24/18 04:32 Metamyelocytes % 1.0 % 09/24/18 04:32 Myelocytes % 0 % 09/24/18 04:32 Promyelocytes % 0 % 09/24/18 04:32 Blast Cells % 0 % 09/24/18 04:32 Nucleated RBC % Not Reportable 09/24/18 04:32 Seg Neutrophils # 9.4 K/mm3 (1.8-7.7) H 09/21/18 03:44 Seg Neutrophils # Man 9.7 K/mm3 (1.8-7.7) H 09/24/18 04:32 Band Neutrophils # 0.5 K/mm3 09/24/18 04:32 Lymphocytes # (Manual) 1.1 K/mm3 (1.2-5.4) L 09/24/18 04:32 Abs React Lymphs (Man) 0.0 K/mm3 09/24/18 04:32 Monocytes # (Manual) 0.0 K/mm3 (0.0-0.8) 09/24/18 04:32 Eosinophils # (Manual) 0.0 K/mm3 (0.0-0.4) 09/24/18 04:32 Basophils # (Manual) 0.0 K/mm3 (0.0-0.1) 09/24/18 04:32 Metamyelocytes # 0.1 K/mm3 09/24/18 04:32 Myelocytes # 0.0 K/mm3 09/24/18 04:32 Promyelocytes # 0.0 K/mm3 09/24/18 04:32 Blast Cells # 0.0 K/mm3 09/24/18 04:32 WBC Morphology Not Reportable 09/24/18 04:32 Hypersegmented Neuts Not Reportable 09/24/18 04:32 Hyposegmented Neuts Not Reportable 09/24/18 04:32 Hypogranular Neuts Not Reportable 09/24/18 04:32 Smudge Cells Not Reportable 09/24/18 04:32 Toxic Granulation Not Reportable 09/24/18 04:32 Toxic Vacuolation Not Reportable 09/24/18 04:32 Dohle Bodies Not Reportable 09/24/18 04:32 Pelger-Huet Anomaly Not Reportable 09/24/18 04:32 Martha Rods Not Reportable 09/24/18 04:32 Platelet Estimate Appears normal 09/24/18 04:32 Clumped Platelets Not Reportable 09/24/18 04:32 Plt Clumps, EDTA Not Reportable 09/24/18 04:32 Large Platelets Not Reportable 09/24/18 04:32 Giant Platelets Few 09/24/18 04:32 Platelet Satelliting Not Reportable 09/24/18 04:32 Plt Morphology Comment Not Reportable 09/24/18 04:32 RBC Morphology Not Reportable 09/24/18 04:32 Dimorphic RBCs Not Reportable 09/24/18 04:32 Polychromasia Not Reportable 09/24/18 04:32 Hypochromasia Not Reportable 09/24/18 04:32 Poikilocytosis 1+ 09/24/18 04:32 Anisocytosis 1+ 09/24/18 04:32 Microcytosis Not Reportable 09/24/18 04:32 Macrocytosis Not Reportable 09/24/18 04:32 Spherocytes Not Reportable 09/24/18 04:32 Pappenheimer Bodies Not Reportable 09/24/18 04:32 Sickle Cells Not Reportable 09/24/18 04:32 Target Cells Rare 09/24/18 04:32 Tear Drop Cells Not Reportable 09/24/18 04:32 Ovalocytes 1+ 09/24/18 04:32 Stomatocytes Few 09/24/18 04:32 Helmet Cells Few 09/24/18 04:32 Schofield-[place] Bodies Not Reportable 09/24/18 04:32 [place] Rings Not Reportable 09/24/18 04:32 Hoda Cells Not Reportable 09/24/18 04:32 Bite Cells Not Reportable 09/24/18 04:32 Crenated Cell Not Reportable 09/24/18 04:32 Elliptocytes 1+ 09/24/18 04:32 Acanthocytes (Spur) Not Reportable 09/24/18 04:32 Rouleaux Not Reportable 09/24/18 04:32 Hemoglobin C Crystals Not Reportable 09/24/18 04:32 Schistocytes Not Reportable 09/24/18 04:32 Malaria parasites Not Reportable 09/24/18 04:32 Brandin Bodies Not Reportable 09/24/18 04:32 Hem Pathologist Commnt No 09/24/18 04:32 PT 17.2 Sec. (12.2-14.9) H 09/24/18 04:32 INR 1.32 (0.87-1.13) H 09/24/18 04:32 Sodium 138 mmol/L (137-145) 09/24/18 06:44 Potassium 4.1 mmol/L (3.6-5.0) D 09/24/18 06:44 Chloride 104.1 mmol/L (98-107) 09/24/18 06:44 Carbon Dioxide 26 mmol/L (22-30) 09/24/18 06:44 Anion Gap 12 mmol/L 09/24/18 06:44 BUN 3 mg/dL (7-17) L 09/24/18 06:44 Creatinine 0.4 mg/dL (0.7-1.2) L 09/24/18 06:44 Estimated GFR > 60 ml/min 09/24/18 06:44 BUN/Creatinine Ratio 8 % 09/24/18 06:44 Glucose 78 mg/dL (65-100) 09/24/18 06:44 POC Glucose 110 (70-105) H 09/23/18 21:50 Hemoglobin A1c 5.2 % (4-6) 09/17/18 07:27 Lactic Acid 1.60 mmol/L (0.7-2.0) 09/17/18 05:41 Calcium 7.7 mg/dL (8.4-10.2) L 09/24/18 06:44 Magnesium 1.90 mg/dL (1.7-2.3) 09/24/18 06:44 Total Bilirubin 0.20 mg/dL (0.1-1.2) 09/23/18 04:50 Direct Bilirubin < 0.2 mg/dL (0-0.2) 09/19/18 03:08 Indirect Bilirubin 0.0 mg/dL 09/19/18 03:08 AST 32 units/L (5-40) 09/23/18 04:50 ALT 17 units/L (7-56) 09/23/18 04:50 Alkaline Phosphatase 62 units/L (35-129) 09/23/18 04:50 Total Creatine Kinase 957 units/L (30-135) H 09/18/18 05:35 Total Protein 5.7 g/dL (6.3-8.2) L 09/23/18 04:50 Albumin 2.1 g/dL (3.9-5) L 09/23/18 04:50 Albumin/Globulin Ratio 0.6 % 09/23/18 04:50 Urine Color Lu (Yellow) 09/16/18 17:40 Urine Turbidity Cloudy (Clear) 09/16/18 17:40 Urine pH 5.0 (5.0-7.0) 09/16/18 17:40 Ur Specific [place] 1.019 (1.003-1.030) 09/16/18 17:40 Urine Protein 30 mg/dl mg/dL (Negative) 09/16/18 17:40 Urine Glucose (UA) Neg mg/dL (Negative) 09/16/18 17:40 Urine Ketones Neg mg/dL (Negative) 09/16/18 17:40 Urine Blood Sm (Negative) 09/16/18 17:40 Urine Nitrite Neg (Negative) 09/16/18 17:40 Urine Bilirubin Neg (Negative) 09/16/18 17:40 Urine Urobilinogen 4.0 mg/dL (<2.0) 09/16/18 17:40 Ur Leukocyte Esterase Mod (Negative) 09/16/18 17:40 Urine WBC (Auto) 84.0 /HPF (0.0-6.0) H 09/16/18 17:40 Urine RBC (Auto) 19.0 /HPF (0.0-6.0) 09/16/18 17:40 U Epithel Cells (Auto) 5.0 /HPF (0-13.0) 09/16/18 17:40 Urine Bacteria (Auto) 3+ /HPF (Negative) 09/16/18 17:40 Urine Mucus 3+ /HPF 09/16/18 17:40 Nutrition/Malnutrition Assess - Dietary Evaluation Nutrition/Malnutrition Findings: Nutrition Notes Start: 09/17/18 11:10 Freq: Status: Active Protocol: Document 09/24/18 13:16 RM (Rec: 09/24/18 13:19 [email or web address]) Nutrition Notes Initial or Follow up Reassessment Current Diagnosis Acute Kidney Injury COPD Hypertension Stroke Other Pertinent Diagnosis Dysphagia, Aphasia, Dementia, UTI, Pneumonia Current Diet No diet ordered Labs/Tests K 4.1 Pertinent Medications Reviewed Height 5 ft 5 in Weight 49.8 kg [place] Body Weight (kg) 56.81 BMI 18.2 Subjective/Other Information PEG recommended per ST note . PEG placed today. Burn Absent Trauma Absent #1 Nutrition Diagnosis Malnutrition Diagnosis Progress(for reassessment Continues documentation) Is patient on ventilator? No Is Patient Ambulatory and/or Out of Bed No REE-([place]-confined to bed) 1240.584 Kcal/Kg value to use for calculation 33 Approximate Energy Requirements Using 1643 kcal/Kg Calculation Used for Recommendations Kcal/kg Additional Notes Protein needs: (1.2-1.5 g/kg) (60-75 g/day) Fluid needs: 1 ml/kcal Nutrition Intervention Nutrition Support: Jevity 1.2 at 55 mL/hr Flush 100 mL q 4 hr Kcal 1,584 Protein (gm) 73 Carbohydrates (gm) 223 Fluid (mL) 1,065 Goal #1 TF tolerance Goal #2 Meet at least 75% of calorie and protein needs via TF Anticipated Discharge Needs: TF Follow-Up By: 09/26/18 Additional Comments Follow for new TF
--- NOTE | 2018-09-24 14:38 | XRay Report ---
PORTABLE CHEST INDICATION: Dyspnea. COMPARISON: 09/16/2018 FINDINGS: Portable, frontal chest radiograph again demonstrates hazy left lower lung opacity/effusion with obscured left hemidiaphragm. Stable cardiomediastinal silhouette, aortic atherosclerotic calcifications and demineralized bones with few degenerative changes. Clear remainder lungs. A PEG tube may be noted in the left upper quadrant. CONCLUSION: Left lung base opacity again noted with few other findings, as above. Thank you for the opportunity to participate in this patient's care.
[2018-09-24] MEDS: ZOSYN/NS 4.5GM/100ML 4.5 GM/100 ML VIAL IV SCH ×2 (15:29→22:01)
[2018-09-24] MEDS: LOVENOX SUB-Q SCH (22:01)
[2018-09-25 06:16] LABS: Basophils # (Auto) 0.1 K/mm3 (0.0-0.1); Basophils % (Auto) 0.4 % (0.0-1.8); Eosinophils # (Auto) 0.2 K/mm3 (0.0-0.4); Eosinophils % (Auto) 1.3 % (0.0-4.3); Hematocrit 32.7 % (30.3-42.9); Hemoglobin 10.5 gm/dl (10.1-14.3); Lymphocytes # (Auto) 1.6 K/mm3 (1.2-5.4); Lymphocytes % (Auto) 10.4 % (13.4-35.0); Mean Corpuscular HGB Conc 32 % (30-34); Mean Corpuscular Volume 82 fl (79-97); Monocytes # (Auto) 1.3 K/mm3 (0.0-0.8); Monocytes % (Auto) 8.2 % (0.0-7.3); Platelet Count 539 K/mm3 (140-440); Red Blood Count 3.97 M/mm3 (3.65-5.03); Red Cell Distribution Width 14.7 % (13.2-15.2)
[2018-09-25] MEDS: ZOSYN/NS 4.5GM/100ML 4.5 GM/100 ML VIAL IV SCH ×3 (06:38→22:16)
--- NOTE | 2018-09-25 07:22 | Fluoroscopy Report ---
MODIFIED BARIUM SWALLOW History: dysphagia. Findings: Video radiography was provided by the radiologist for speech therapy to assess the swallowing mechanism. 1 fluoroscopic image was captured. Impression: Successful modified barium swallow.
[2018-09-25] MEDS: PROVENTIL IH SCH ×2 (07:30→20:16)
[2018-09-25] MEDS: PEPCID IV SCH (10:47)
[2018-09-25 11:08] LABS: BUN/Creatinine Ratio 10; Blood Urea Nitrogen 5 mg/dL (7-17); Hemolysis Index 4
--- NOTE | 2018-09-25 11:09 | Gastroenterology Progress Note ---
Addendum entered and electronically signed by YEIMY MICHAELS MD 09/25/18 16:10: Patient seen and examined on 09/25/2018. Doing well with tube feeds vis PEG tube. Will sign off. Original Note: Assessment and Plan This is 68 yo AAF with pmh of COPD, CVA with aphasia, HTN, and failure to thrive admitted for sepsis due to pneumonia and cystitis after presenting with weakness and nausea/vomiting. GI consulted for placement of PEG tube placement for nutrition. 1. Failure to thrive 2.PEG placement -s/p EGD/PEG yesterday -PEG site this am w/o s/s of infection -bumper loosened to prevent skin breakdown -split gauze dressing PRN -daily PEG care -abd binder if needed -currently tolerating TFs -continue supportive care -no further recommendations per GI standpoint -will sign off, please call if needed Subjective Date of service: 09/25/18 Principal diagnosis: PEG placement Interval history: No acute distress. PEG site w/o redness, swelling, odor, bleeding, or drainage. Tolerating TFs per nursing. Objective - Constitutional Vitals: Temp Pulse Resp BP Pulse Ox 98.4 F 81 16 143/75 100 09/25/18 07:29 09/25/18 07:41 09/25/18 07:41 09/25/18 07:29 09/25/18 07:34 General appearance: no acute distress - Respiratory Respiratory: bilateral: diminished - Cardiovascular Rhythm: regular Heart Sounds: Present: S1 & S2 - Gastrointestinal General gastrointestinal: Present: soft, non-tender, non-distended, normal bowel sounds, other (+PEG) - Labs CBC & Chem 7: 09/25/18 05:01 09/25/18 09:24 Labs: Laboratory Results - last 24 hr 09/25/18 09/25/18 05:01 09:24 WBC 15.6 H RBC 3.97 Hgb 10.5 Hct 32.7 MCV 82 MCH 27 L MCHC 32 RDW 14.7 Plt Count 539 H Lymph % (Auto) 10.4 L [place] % (Auto) 8.2 H Eos % (Auto) 1.3 Baso % (Auto) 0.4 Lymph # 1.6 [place] # 1.3 H Eos # 0.2 Baso # 0.1 Seg Neutrophils % 79.7 H Seg Neutrophils # 12.5 H Sodium 143 Potassium 3.6 Chloride 106.9 Carbon Dioxide 30 Anion Gap 10 BUN 5 L Creatinine 0.5 L Estimated GFR > 60 BUN/Creatinine Ratio 10 Glucose 105 H Calcium 8.0 L
[2018-09-25] MEDS: NORVASC PO SCH (11:38)
[2018-09-25] MEDS: SODIUM CHLORIDE FLUSH SYRINGE 10 ML IV SCH ×2 (13:47→22:17)
--- NOTE | 2018-09-25 15:28 | Progress Note ---
Assessment and Plan Assessment and plan: New Acute respiratory failure with hypoxia s/p procedure -likely 2/2 aspiration -CXR showed left lung base opacity -cont IV zosyn Severe dehydration with hypernatremia -resolved Dysphagia with severe protein calorie Malnutrition -s/p peg tube placement on tube feeding Severe sepsis syndrome 2/2 Aspiration PNA -initially completed antibiotics -cont aspiration precautions -blood cultures neg UTI -completed Rocephin -urine culture neg Hyokalemia and Hypomagnesemia -improved s/p repletion, will monitor Mild Acute Diverticulitis -resolved h/o CVA with focal deficits -cont fall precautions and supportive care HTN -stable on PRN hydralazine Adult FTT with BMI of 18.3 -s/p peg tube placement today Chronic debility -PT/OT following Disp: for d/c when medically stable History Interval history: Patient is unable to communicate appropriately. No overnight issues reported Hospitalist Physical - Constitutional Vitals: Temp Pulse Resp BP Pulse Ox 99.3 F 91 H 22 157/75 95 09/25/18 13:43 09/25/18 13:43 09/25/18 13:43 09/25/18 13:43 09/25/18 13:43 General appearance: Present: no acute distress - EENT Eyes: Present: PERRL, EOM intact ENT: hearing intact, clear oral mucosa - Neck Neck: Present: supple - Respiratory Respiratory effort: normal Respiratory: bilateral: CTA - Cardiovascular Rhythm: regular Heart Sounds: Present: S1 & S2 - Extremities Extremities: No edema - Abdominal General gastrointestinal: soft, non-tender, non-distended, normal bowel sounds, other (PEG tube noted) - Neurologic Neurologic: other (pt is awake and responsive) Results - Labs CBC & Chem 7: 09/25/18 05:01 09/25/18 09:24 Labs: Laboratory Last Values WBC 15.6 K/mm3 (4.5-11.0) H 09/25/18 05:01 RBC 3.97 M/mm3 (3.65-5.03) 09/25/18 05:01 Hgb 10.5 gm/dl (10.1-14.3) 09/25/18 05:01 Hct 32.7 % (30.3-42.9) 09/25/18 05:01 MCV 82 fl (79-97) 09/25/18 05:01 MCH 27 pg (28-32) L 09/25/18 05:01 MCHC 32 % (30-34) 09/25/18 05:01 RDW 14.7 % (13.2-15.2) 09/25/18 05:01 Plt Count 539 K/mm3 (140-440) H 09/25/18 05:01 Lymph % (Auto) 10.4 % (13.4-35.0) L 09/25/18 05:01 [place] % (Auto) 8.2 % (0.0-7.3) H 09/25/18 05:01 Eos % (Auto) 1.3 % (0.0-4.3) 09/25/18 05:01 Baso % (Auto) 0.4 % (0.0-1.8) 09/25/18 05:01 Lymph # 1.6 K/mm3 (1.2-5.4) 09/25/18 05:01 [place] # 1.3 K/mm3 (0.0-0.8) H 09/25/18 05:01 Eos # 0.2 K/mm3 (0.0-0.4) 09/25/18 05:01 Baso # 0.1 K/mm3 (0.0-0.1) 09/25/18 05:01 Add Manual Diff Complete 09/24/18 04:32 Total Counted 100 09/24/18 04:32 Seg Neutrophils % 79.7 % (40.0-70.0) H 09/25/18 05:01 Seg Neuts % (Manual) 85.0 % (40.0-70.0) H 09/24/18 04:32 Band Neutrophils % 4.0 % 09/24/18 04:32 Lymphocytes % (Manual) 10.0 % (13.4-35.0) L 09/24/18 04:32 Reactive Lymphs % (Man) 0 % 09/24/18 04:32 Monocytes % (Manual) 0 % (0.0-7.3) 09/24/18 04:32 Eosinophils % (Manual) 0 % (0.0-4.3) 09/24/18 04:32 Basophils % (Manual) 0 % (0.0-1.8) 09/24/18 04:32 Metamyelocytes % 1.0 % 09/24/18 04:32 Myelocytes % 0 % 09/24/18 04:32 Promyelocytes % 0 % 09/24/18 04:32 Blast Cells % 0 % 09/24/18 04:32 Nucleated RBC % Not Reportable 09/24/18 04:32 Seg Neutrophils # 12.5 K/mm3 (1.8-7.7) H 09/25/18 05:01 Seg Neutrophils # Man 9.7 K/mm3 (1.8-7.7) H 09/24/18 04:32 Band Neutrophils # 0.5 K/mm3 09/24/18 04:32 Lymphocytes # (Manual) 1.1 K/mm3 (1.2-5.4) L 09/24/18 04:32 Abs React Lymphs (Man) 0.0 K/mm3 09/24/18 04:32 Monocytes # (Manual) 0.0 K/mm3 (0.0-0.8) 09/24/18 04:32 Eosinophils # (Manual) 0.0 K/mm3 (0.0-0.4) 09/24/18 04:32 Basophils # (Manual) 0.0 K/mm3 (0.0-0.1) 09/24/18 04:32 Metamyelocytes # 0.1 K/mm3 09/24/18 04:32 Myelocytes # 0.0 K/mm3 09/24/18 04:32 Promyelocytes # 0.0 K/mm3 09/24/18 04:32 Blast Cells # 0.0 K/mm3 09/24/18 04:32 WBC Morphology Not Reportable 09/24/18 04:32 Hypersegmented Neuts Not Reportable 09/24/18 04:32 Hyposegmented Neuts Not Reportable 09/24/18 04:32 Hypogranular Neuts Not Reportable 09/24/18 04:32 Smudge Cells Not Reportable 09/24/18 04:32 Toxic Granulation Not Reportable 09/24/18 04:32 Toxic Vacuolation Not Reportable 09/24/18 04:32 Dohle Bodies Not Reportable 09/24/18 04:32 Pelger-Huet Anomaly Not Reportable 09/24/18 04:32 Martha Rods Not Reportable 09/24/18 04:32 Platelet Estimate Appears normal 09/24/18 04:32 Clumped Platelets Not Reportable 09/24/18 04:32 Plt Clumps, EDTA Not Reportable 09/24/18 04:32 Large Platelets Not Reportable 09/24/18 04:32 Giant Platelets Few 09/24/18 04:32 Platelet Satelliting Not Reportable 09/24/18 04:32 Plt Morphology Comment Not Reportable 09/24/18 04:32 RBC Morphology Not Reportable 09/24/18 04:32 Dimorphic RBCs Not Reportable 09/24/18 04:32 Polychromasia Not Reportable 09/24/18 04:32 Hypochromasia Not Reportable 09/24/18 04:32 Poikilocytosis 1+ 09/24/18 04:32 Anisocytosis 1+ 09/24/18 04:32 Microcytosis Not Reportable 09/24/18 04:32 Macrocytosis Not Reportable 09/24/18 04:32 Spherocytes Not Reportable 09/24/18 04:32 Pappenheimer Bodies Not Reportable 09/24/18 04:32 Sickle Cells Not Reportable 09/24/18 04:32 Target Cells Rare 09/24/18 04:32 Tear Drop Cells Not Reportable 09/24/18 04:32 Ovalocytes 1+ 09/24/18 04:32 Stomatocytes Few 09/24/18 04:32 Helmet Cells Few 09/24/18 04:32 Schofield-[place]and[place] Bodies Not Reportable 09/24/18 04:32 [place] Rings Not Reportable 09/24/18 04:32 Hoda Cells Not Reportable 09/24/18 04:32 Bite Cells Not Reportable 09/24/18 04:32 Crenated Cell Not Reportable 09/24/18 04:32 Elliptocytes 1+ 09/24/18 04:32 Acanthocytes (Spur) Not Reportable 09/24/18 04:32 Rouleaux Not Reportable 09/24/18 04:32 Hemoglobin C Crystals Not Reportable 09/24/18 04:32 Schistocytes Not Reportable 09/24/18 04:32 Malaria parasites Not Reportable 09/24/18 04:32 Brandin Bodies Not Reportable 09/24/18 04:32 Hem Pathologist Commnt No 09/24/18 04:32 PT 17.2 Sec. (12.2-14.9) H 09/24/18 04:32 INR 1.32 (0.87-1.13) H 09/24/18 04:32 Sodium 143 mmol/L (137-145) 09/25/18 09:24 Potassium 3.6 mmol/L (3.6-5.0) 09/25/18 09:24 Chloride 106.9 mmol/L (98-107) 09/25/18 09:24 Carbon Dioxide 30 mmol/L (22-30) 09/25/18 09:24 Anion Gap 10 mmol/L 09/25/18 09:24 BUN 5 mg/dL (7-17) L 09/25/18 09:24 Creatinine 0.5 mg/dL (0.7-1.2) L 09/25/18 09:24 Estimated GFR > 60 ml/min 09/25/18 09:24 BUN/Creatinine Ratio 10 % 09/25/18 09:24 Glucose 105 mg/dL (65-100) H 09/25/18 09:24 POC Glucose 110 (70-105) H 09/23/18 21:50 Hemoglobin A1c 5.2 % (4-6) 09/17/18 07:27 Lactic Acid 1.60 mmol/L (0.7-2.0) 09/17/18 05:41 Calcium 8.0 mg/dL (8.4-10.2) L 09/25/18 09:24 Magnesium 1.90 mg/dL (1.7-2.3) 09/24/18 06:44 Total Bilirubin 0.20 mg/dL (0.1-1.2) 09/23/18 04:50 Direct Bilirubin < 0.2 mg/dL (0-0.2) 09/19/18 03:08 Indirect Bilirubin 0.0 mg/dL 09/19/18 03:08 AST 32 units/L (5-40) 09/23/18 04:50 ALT 17 units/L (7-56) 09/23/18 04:50 Alkaline Phosphatase 62 units/L (35-129) 09/23/18 04:50 Total Creatine Kinase 957 units/L (30-135) H 09/18/18 05:35 Total Protein 5.7 g/dL (6.3-8.2) L 09/23/18 04:50 Albumin 2.1 g/dL (3.9-5) L 09/23/18 04:50 Albumin/Globulin Ratio 0.6 % 09/23/18 04:50 Urine Color Lu (Yellow) 09/16/18 17:40 Urine Turbidity Cloudy (Clear) 09/16/18 17:40 Urine pH 5.0 (5.0-7.0) 09/16/18 17:40 Ur Specific [place] 1.019 (1.003-1.030) 09/16/18 17:40 Urine Protein 30 mg/dl mg/dL (Negative) 09/16/18 17:40 Urine Glucose (UA) Neg mg/dL (Negative) 09/16/18 17:40 Urine Ketones Neg mg/dL (Negative) 09/16/18 17:40 Urine Blood Sm (Negative) 09/16/18 17:40 Urine Nitrite Neg (Negative) 09/16/18 17:40 Urine Bilirubin Neg (Negative) 09/16/18 17:40 Urine Urobilinogen 4.0 mg/dL (<2.0) 09/16/18 17:40 Ur Leukocyte Esterase Mod (Negative) 09/16/18 17:40 Urine WBC (Auto) 84.0 /HPF (0.0-6.0) H 09/16/18 17:40 Urine RBC (Auto) 19.0 /HPF (0.0-6.0) 09/16/18 17:40 U Epithel Cells (Auto) 5.0 /HPF (0-13.0) 09/16/18 17:40 Urine Bacteria (Auto) 3+ /HPF (Negative) 09/16/18 17:40 Urine Mucus 3+ /HPF 09/16/18 17:40 Nutrition/Malnutrition Assess - Dietary Evaluation Nutrition/Malnutrition Findings: Nutrition Notes Start: 09/17/18 11:10 Freq: Status: Active Protocol: Document 09/24/18 13:16 RM (Rec: 09/24/18 13:19 [email or web address]) Nutrition Notes Initial or Follow up Reassessment Current Diagnosis Acute Kidney Injury COPD Hypertension Stroke Other Pertinent Diagnosis Dysphagia, Aphasia, Dementia, UTI, Pneumonia Current Diet No diet ordered Labs/Tests K 4.1 Pertinent Medications Reviewed Height 5 ft 5 in Weight 49.8 kg [place] Body Weight (kg) 56.81 BMI 18.2 Subjective/Other Information PEG recommended per ST note . PEG placed today. Burn Absent Trauma Absent #1 Nutrition Diagnosis Malnutrition Diagnosis Progress(for reassessment Continues documentation) Is patient on ventilator? No Is Patient Ambulatory and/or Out of Bed No REE-([place]-confined to bed) 1240.584 Kcal/Kg value to use for calculation 33 Approximate Energy Requirements Using 1643 kcal/Kg Calculation Used for Recommendations Kcal/kg Additional Notes Protein needs: (1.2-1.5 g/kg) (60-75 g/day) Fluid needs: 1 ml/kcal Nutrition Intervention Nutrition Support: Jevity 1.2 at 55 mL/hr Flush 100 mL q 4 hr Kcal 1,584 Protein (gm) 73 Carbohydrates (gm) 223 Fluid (mL) 1,065 Goal #1 TF tolerance Goal #2 Meet at least 75% of calorie and protein needs via TF Anticipated Discharge Needs: TF Follow-Up By: 09/26/18 Additional Comments Follow for new TF
[2018-09-25] MEDS ORDERED: POTASSIUM CHLORIDE FEEDTUBE SCH (16:00)
[2018-09-25] MEDS: LOVENOX SUB-Q SCH (22:16)
[2018-09-26] MEDS: ZOSYN/NS 4.5GM/100ML 4.5 GM/100 ML VIAL IV SCH ×3 (05:58→22:46)
[2018-09-26 06:10] LABS: Basophils # (Auto) 0.1 K/mm3 (0.0-0.1); Basophils % (Auto) 0.6 % (0.0-1.8); Eosinophils # (Auto) 0.2 K/mm3 (0.0-0.4); Eosinophils % (Auto) 1.9 % (0.0-4.3); Hematocrit 32.3 % (30.3-42.9); Hemoglobin 10.6 gm/dl (10.1-14.3); Lymphocytes # (Auto) 1.4 K/mm3 (1.2-5.4); Lymphocytes % (Auto) 11.7 % (13.4-35.0); Mean Corpuscular HGB Conc 33 % (30-34); Mean Corpuscular Volume 82 fl (79-97); Monocytes # (Auto) 0.9 K/mm3 (0.0-0.8); Platelet Count 580 K/mm3 (140-440); Red Blood Count 3.93 M/mm3 (3.65-5.03); Red Cell Distribution Width 14.7 % (13.2-15.2)
[2018-09-26 06:42] LABS: BUN/Creatinine Ratio 15; Blood Urea Nitrogen 6 mg/dL (7-17); Calcium 8.1 mg/dL (8.4-10.2); Hemolysis Index 12
[2018-09-26] MEDS: PROVENTIL IH SCH ×2 (07:39→19:19)
[2018-09-26] MEDS: PEPCID PO SCH (09:35)
[2018-09-26] MEDS: NORVASC PO SCH (09:35)
[2018-09-26] MEDS ORDERED: MAGNESIUM SULFATE 3 GM in NACL 0.9% 100 ML IV ONE (10:00)
[2018-09-26] MEDS: SODIUM CHLORIDE FLUSH SYRINGE 10 ML IV SCH ×2 (11:06→23:15)
--- NOTE | 2018-09-26 14:21 | Progress Note ---
Assessment and Plan Assessment and plan: New Acute respiratory failure with hypoxia s/p procedure -likely 2/2 aspiration -CXR showed left lung base opacity -cont IV zosyn Severe dehydration with hypernatremia -resolved Dysphagia with severe protein calorie Malnutrition -s/p peg tube placement on tube feeding Severe sepsis syndrome 2/2 Aspiration PNA -initially completed antibiotics -cont aspiration precautions -blood cultures neg UTI -completed Rocephin -urine culture neg Hyokalemia and Hypomagnesemia -Improving on repletion, will monitor Mild Acute Diverticulitis -resolved h/o CVA with focal deficits -cont fall precautions and supportive care HTN -Fairly controlled on amlodipine -We will resume her home lisinopril Adult FTT with BMI of 18.3 -s/p peg tube placement today Chronic debility -PT/OT following Disp: for possible discharge on Saturday if clinically stable. History Interval history: Patient is unable to communicate appropriately. No overnight issues reported Hospitalist Physical - Constitutional Vitals: Temp Pulse Resp BP Pulse Ox 99.0 F 118 H 20 154/85 93 09/26/18 13:20 09/26/18 13:20 09/26/18 13:20 09/26/18 13:20 09/26/18 13:20 General appearance: Present: no acute distress - EENT Eyes: Present: PERRL, EOM intact ENT: hearing intact, clear oral mucosa - Neck Neck: Present: supple - Respiratory Respiratory effort: normal Respiratory: bilateral: CTA - Cardiovascular Rhythm: regular Heart Sounds: Present: S1 & S2 - Extremities Extremities: No edema - Abdominal General gastrointestinal: soft, non-tender, non-distended, normal bowel sounds, other (PEG tube noted) - Neurologic Neurologic: CNII-XII intact Results - Labs CBC & Chem 7: 09/26/18 05:53 09/26/18 05:53 Labs: Laboratory Last Values WBC 11.6 K/mm3 (4.5-11.0) H 09/26/18 05:53 RBC 3.93 M/mm3 (3.65-5.03) 09/26/18 05:53 Hgb 10.6 gm/dl (10.1-14.3) 09/26/18 05:53 Hct 32.3 % (30.3-42.9) 09/26/18 05:53 MCV 82 fl (79-97) 09/26/18 05:53 MCH 27 pg (28-32) L 09/26/18 05:53 MCHC 33 % (30-34) 09/26/18 05:53 RDW 14.7 % (13.2-15.2) 09/26/18 05:53 Plt Count 580 K/mm3 (140-440) H 09/26/18 05:53 Lymph % (Auto) 11.7 % (13.4-35.0) L 09/26/18 05:53 [place] % (Auto) 8.0 % (0.0-7.3) H 09/26/18 05:53 Eos % (Auto) 1.9 % (0.0-4.3) 09/26/18 05:53 Baso % (Auto) 0.6 % (0.0-1.8) 09/26/18 05:53 Lymph # 1.4 K/mm3 (1.2-5.4) 09/26/18 05:53 [place] # 0.9 K/mm3 (0.0-0.8) H 09/26/18 05:53 Eos # 0.2 K/mm3 (0.0-0.4) 09/26/18 05:53 Baso # 0.1 K/mm3 (0.0-0.1) 09/26/18 05:53 Add Manual Diff Complete 09/24/18 04:32 Total Counted 100 09/24/18 04:32 Seg Neutrophils % 77.8 % (40.0-70.0) H 09/26/18 05:53 Seg Neuts % (Manual) 85.0 % (40.0-70.0) H 09/24/18 04:32 Band Neutrophils % 4.0 % 09/24/18 04:32 Lymphocytes % (Manual) 10.0 % (13.4-35.0) L 09/24/18 04:32 Reactive Lymphs % (Man) 0 % 09/24/18 04:32 Monocytes % (Manual) 0 % (0.0-7.3) 09/24/18 04:32 Eosinophils % (Manual) 0 % (0.0-4.3) 09/24/18 04:32 Basophils % (Manual) 0 % (0.0-1.8) 09/24/18 04:32 Metamyelocytes % 1.0 % 09/24/18 04:32 Myelocytes % 0 % 09/24/18 04:32 Promyelocytes % 0 % 09/24/18 04:32 Blast Cells % 0 % 09/24/18 04:32 Nucleated RBC % Not Reportable 09/24/18 04:32 Seg Neutrophils # 9.1 K/mm3 (1.8-7.7) H 09/26/18 05:53 Seg Neutrophils # Man 9.7 K/mm3 (1.8-7.7) H 09/24/18 04:32 Band Neutrophils # 0.5 K/mm3 09/24/18 04:32 Lymphocytes # (Manual) 1.1 K/mm3 (1.2-5.4) L 09/24/18 04:32 Abs React Lymphs (Man) 0.0 K/mm3 09/24/18 04:32 Monocytes # (Manual) 0.0 K/mm3 (0.0-0.8) 09/24/18 04:32 Eosinophils # (Manual) 0.0 K/mm3 (0.0-0.4) 09/24/18 04:32 Basophils # (Manual) 0.0 K/mm3 (0.0-0.1) 09/24/18 04:32 Metamyelocytes # 0.1 K/mm3 09/24/18 04:32 Myelocytes # 0.0 K/mm3 09/24/18 04:32 Promyelocytes # 0.0 K/mm3 09/24/18 04:32 Blast Cells # 0.0 K/mm3 09/24/18 04:32 WBC Morphology Not Reportable 09/24/18 04:32 Hypersegmented Neuts Not Reportable 09/24/18 04:32 Hyposegmented Neuts Not Reportable 09/24/18 04:32 Hypogranular Neuts Not Reportable 09/24/18 04:32 Smudge Cells Not Reportable 09/24/18 04:32 Toxic Granulation Not Reportable 09/24/18 04:32 Toxic Vacuolation Not Reportable 09/24/18 04:32 Dohle Bodies Not Reportable 09/24/18 04:32 Pelger-Huet Anomaly Not Reportable 09/24/18 04:32 Martha Rods Not Reportable 09/24/18 04:32 Platelet Estimate Appears normal 09/24/18 04:32 Clumped Platelets Not Reportable 09/24/18 04:32 Plt Clumps, EDTA Not Reportable 09/24/18 04:32 Large Platelets Not Reportable 09/24/18 04:32 Giant Platelets Few 09/24/18 04:32 Platelet Satelliting Not Reportable 09/24/18 04:32 Plt Morphology Comment Not Reportable 09/24/18 04:32 RBC Morphology Not Reportable 09/24/18 04:32 Dimorphic RBCs Not Reportable 09/24/18 04:32 Polychromasia Not Reportable 09/24/18 04:32 Hypochromasia Not Reportable 09/24/18 04:32 Poikilocytosis 1+ 09/24/18 04:32 Anisocytosis 1+ 09/24/18 04:32 Microcytosis Not Reportable 09/24/18 04:32 Macrocytosis Not Reportable 09/24/18 04:32 Spherocytes Not Reportable 09/24/18 04:32 Pappenheimer Bodies Not Reportable 09/24/18 04:32 Sickle Cells Not Reportable 09/24/18 04:32 Target Cells Rare 09/24/18 04:32 Tear Drop Cells Not Reportable 09/24/18 04:32 Ovalocytes 1+ 09/24/18 04:32 Stomatocytes Few 09/24/18 04:32 Helmet Cells Few 09/24/18 04:32 [place] Bodies Not Reportable 09/24/18 04:32 [place] Rings Not Reportable 09/24/18 04:32 Hoda Cells Not Reportable 09/24/18 04:32 Bite Cells Not Reportable 09/24/18 04:32 Crenated Cell Not Reportable 09/24/18 04:32 Elliptocytes 1+ 09/24/18 04:32 Acanthocytes (Spur) Not Reportable 09/24/18 04:32 Rouleaux Not Reportable 09/24/18 04:32 Hemoglobin C Crystals Not Reportable 09/24/18 04:32 Schistocytes Not Reportable 09/24/18 04:32 Malaria parasites Not Reportable 09/24/18 04:32 Brandin Bodies Not Reportable 09/24/18 04:32 Hem Pathologist Commnt No 09/24/18 04:32 PT 17.2 Sec. (12.2-14.9) H 09/24/18 04:32 INR 1.32 (0.87-1.13) H 09/24/18 04:32 Sodium 143 mmol/L (137-145) 09/26/18 05:53 Potassium 4.5 mmol/L (3.6-5.0) D 09/26/18 05:53 Chloride 106.2 mmol/L (98-107) 09/26/18 05:53 Carbon Dioxide 28 mmol/L (22-30) 09/26/18 05:53 Anion Gap 13 mmol/L 09/26/18 05:53 BUN 6 mg/dL (7-17) L 09/26/18 05:53 Creatinine 0.4 mg/dL (0.7-1.2) L 09/26/18 05:53 Estimated GFR > 60 ml/min 09/26/18 05:53 BUN/Creatinine Ratio 15 % 09/26/18 05:53 Glucose 106 mg/dL (65-100) H 09/26/18 05:53 POC Glucose 106 (70-105) H 09/26/18 11:35 Hemoglobin A1c 5.2 % (4-6) 09/17/18 07:27 Lactic Acid 1.60 mmol/L (0.7-2.0) 09/17/18 05:41 Calcium 8.1 mg/dL (8.4-10.2) L 09/26/18 05:53 Magnesium 1.40 mg/dL (1.7-2.3) L 09/26/18 05:53 Total Bilirubin 0.20 mg/dL (0.1-1.2) 09/23/18 04:50 Direct Bilirubin < 0.2 mg/dL (0-0.2) 09/19/18 03:08 Indirect Bilirubin 0.0 mg/dL 09/19/18 03:08 AST 32 units/L (5-40) 09/23/18 04:50 ALT 17 units/L (7-56) 09/23/18 04:50 Alkaline Phosphatase 62 units/L (35-129) 09/23/18 04:50 Total Creatine Kinase 957 units/L (30-135) H 09/18/18 05:35 Total Protein 5.7 g/dL (6.3-8.2) L 09/23/18 04:50 Albumin 2.1 g/dL (3.9-5) L 09/23/18 04:50 Albumin/Globulin Ratio 0.6 % 09/23/18 04:50 Urine Color Lu (Yellow) 09/16/18 17:40 Urine Turbidity Cloudy (Clear) 09/16/18 17:40 Urine pH 5.0 (5.0-7.0) 09/16/18 17:40 Ur Specific [place] 1.019 (1.003-1.030) 09/16/18 17:40 Urine Protein 30 mg/dl mg/dL (Negative) 09/16/18 17:40 Urine Glucose (UA) Neg mg/dL (Negative) 09/16/18 17:40 Urine Ketones Neg mg/dL (Negative) 09/16/18 17:40 Urine Blood Sm (Negative) 09/16/18 17:40 Urine Nitrite Neg (Negative) 09/16/18 17:40 Urine Bilirubin Neg (Negative) 09/16/18 17:40 Urine Urobilinogen 4.0 mg/dL (<2.0) 09/16/18 17:40 Ur Leukocyte Esterase Mod (Negative) 09/16/18 17:40 Urine WBC (Auto) 84.0 /HPF (0.0-6.0) H 09/16/18 17:40 Urine RBC (Auto) 19.0 /HPF (0.0-6.0) 09/16/18 17:40 U Epithel Cells (Auto) 5.0 /HPF (0-13.0) 09/16/18 17:40 Urine Bacteria (Auto) 3+ /HPF (Negative) 09/16/18 17:40 Urine Mucus 3+ /HPF 09/16/18 17:40 Nutrition/Malnutrition Assess - Dietary Evaluation Nutrition/Malnutrition Findings: Nutrition Notes Start: 09/17/18 11:10 Freq: Status: Active Protocol: Document 09/26/18 10:46 SA (Rec: 09/26/18 11:13 SA [id number]) Co-Sign 09/26/18 10:46 LP Nutrition Notes Initial or Follow up Reassessment Current Diagnosis Acute Kidney Injury COPD Hypertension Stroke Other Pertinent Diagnosis Dysphagia, Aphasia, Dementia, UTI, Pneumonia Current Diet Jevity 1.2 at 55ml/hr Labs/Tests BUN: 6 Cr: 0.4 Glu: 106 Ca: 8.1 M.4 Pertinent Medications Reviewed Height 5 ft 5 in Weight 49.8 kg [place] Body Weight (kg) 56.81 BMI 18.2 Subjective/Other Information Per patient nurse, patient TF started running at goal rate of 55ml/hr last night at 2: 00am. Nurse states patient tolerating TF. Percent of energy/protein needs met: 96%/100% Burn Absent Trauma Absent #1 Nutrition Diagnosis Malnutrition Diagnosis Progress(for reassessment Continues documentation) Is patient on ventilator? No Is Patient Ambulatory and/or Out of Bed No REE-([place]-confined to bed) 1240.584 Kcal/Kg value to use for calculation 33 Approximate Energy Requirements Using 1643 kcal/Kg Calculation Used for Recommendations Kcal/kg Additional Notes Protein needs: (1.2-1.5 g/kg) (60-75 g/day) Fluid needs: 1 ml/kcal Nutrition Intervention Change Diet Order: Continue current Nutrition Support: Jevity 1.2 at 55 mL/hr Flush 100 mL q 4 hr Kcal 1,584 Protein (gm) 73 Carbohydrates (gm) 223 Fluid (mL) 1,065 Goal #1 Meet at least 75% of kcal and PRO needs via TF Anticipated Discharge Needs: TF Follow-Up By: 10/01/18 Additional Comments F/U: TF
[2018-09-26] MEDS: ZESTRIL FEEDTUBE SCH (16:12)
[2018-09-26] MEDS: LOVENOX SUB-Q SCH (22:42)
[2018-09-27 05:27] LABS: Basophils % (Auto) 0.4 % (0.0-1.8); Eosinophils # (Auto) 0.2 K/mm3 (0.0-0.4); Eosinophils % (Auto) 1.6 % (0.0-4.3); Hematocrit 31.9 % (30.3-42.9); Hemoglobin 10.6 gm/dl (10.1-14.3); Lymphocytes # (Auto) 1.7 K/mm3 (1.2-5.4); Lymphocytes % (Auto) 14.9 % (13.4-35.0); Mean Corpuscular HGB Conc 33 % (30-34); Mean Corpuscular Volume 82 fl (79-97); Monocytes % (Auto) 8.6 % (0.0-7.3); Platelet Count 600 K/mm3 (140-440); Red Blood Count 3.89 M/mm3 (3.65-5.03); Red Cell Distribution Width 14.6 % (13.2-15.2)
[2018-09-27 05:45] LABS: BUN/Creatinine Ratio 14; Blood Urea Nitrogen 7 mg/dL (7-17); Calcium 7.9 mg/dL (8.4-10.2); Hemolysis Index 5
[2018-09-27] MEDS: ZOSYN/NS 4.5GM/100ML 4.5 GM/100 ML VIAL IV SCH ×3 (06:01→21:59)
[2018-09-27] MEDS: PROVENTIL IH SCH ×2 (08:45→20:32)
[2018-09-27] MEDS: ZESTRIL FEEDTUBE SCH (09:41)
[2018-09-27] MEDS: PEPCID PO SCH (09:41)
[2018-09-27] MEDS: NORVASC PO SCH (09:41)
[2018-09-27] MEDS: SODIUM CHLORIDE FLUSH SYRINGE 10 ML IV SCH ×2 (09:42→22:00)
[2018-09-27] MEDS ORDERED: MAGNESIUM SULFATE 2GM/50ML 2 GM/50 ML BAG IV ONE (10:39)
--- NOTE | 2018-09-27 15:44 | Progress Note ---
Assessment and Plan Assessment and plan: New Acute respiratory failure with hypoxia s/p procedure -likely 2/2 aspiration -CXR showed left lung base opacity -cont IV zosyn -will consider ID consult if wbc level or temp trends up Severe dehydration with hypernatremia -resolved Dysphagia with severe protein calorie Malnutrition -s/p peg tube placement on tube feeding Severe sepsis syndrome 2/2 Aspiration PNA -initially completed antibiotics -cont aspiration precautions -blood cultures neg UTI -completed Rocephin -urine culture neg Hyokalemia and Hypomagnesemia -Improving on repletion, will monitor Mild Acute Diverticulitis -resolved h/o CVA with focal deficits -cont fall precautions and supportive care HTN -Controlled on meds Adult FTT with BMI of 18.3 -s/p peg tube placement today Chronic debility -PT/OT following Disp: for possible discharge on Saturday if clinically stable. History Interval history: Patient looks weak and less responsive today. She is unable to communicate appropriately which is her baseline Hospitalist Physical - Constitutional Vitals: Temp Pulse Resp BP Pulse Ox 99.0 F 98 H 18 127/71 97 09/27/18 13:09 09/27/18 13:09 09/27/18 13:09 09/27/18 13:09 09/27/18 13:09 General appearance: Present: no acute distress - EENT Eyes: Present: PERRL, EOM intact ENT: hearing intact, clear oral mucosa - Neck Neck: Present: supple - Respiratory Respiratory effort: normal Respiratory: bilateral: diminished - Cardiovascular Rhythm: regular (tachycardia) Heart Sounds: Present: S1 & S2 - Extremities Extremities: No edema - Abdominal General gastrointestinal: soft, non-tender, non-distended, normal bowel sounds - Neurologic Neurologic: other (patient is unable to communicate appropriately) Results - Labs CBC & Chem 7: 09/27/18 04:33 09/27/18 04:33 Labs: Laboratory Last Values WBC 11.5 K/mm3 (4.5-11.0) H 09/27/18 04:33 RBC 3.89 M/mm3 (3.65-5.03) 09/27/18 04:33 Hgb 10.6 gm/dl (10.1-14.3) 09/27/18 04:33 Hct 31.9 % (30.3-42.9) 09/27/18 04:33 MCV 82 fl (79-97) 09/27/18 04:33 MCH 27 pg (28-32) L 09/27/18 04:33 MCHC 33 % (30-34) 09/27/18 04:33 RDW 14.6 % (13.2-15.2) 09/27/18 04:33 Plt Count 600 K/mm3 (140-440) H 09/27/18 04:33 Lymph % (Auto) 14.9 % (13.4-35.0) 09/27/18 04:33 [place] % (Auto) 8.6 % (0.0-7.3) H 09/27/18 04:33 Eos % (Auto) 1.6 % (0.0-4.3) 09/27/18 04:33 Baso % (Auto) 0.4 % (0.0-1.8) 09/27/18 04:33 Lymph # 1.7 K/mm3 (1.2-5.4) 09/27/18 04:33 [place] # 1.0 K/mm3 (0.0-0.8) H 09/27/18 04:33 Eos # 0.2 K/mm3 (0.0-0.4) 09/27/18 04:33 Baso # 0.0 K/mm3 (0.0-0.1) 09/27/18 04:33 Add Manual Diff Complete 09/24/18 04:32 Total Counted 100 09/24/18 04:32 Seg Neutrophils % 74.5 % (40.0-70.0) H 09/27/18 04:33 Seg Neuts % (Manual) 85.0 % (40.0-70.0) H 09/24/18 04:32 Band Neutrophils % 4.0 % 09/24/18 04:32 Lymphocytes % (Manual) 10.0 % (13.4-35.0) L 09/24/18 04:32 Reactive Lymphs % (Man) 0 % 09/24/18 04:32 Monocytes % (Manual) 0 % (0.0-7.3) 09/24/18 04:32 Eosinophils % (Manual) 0 % (0.0-4.3) 09/24/18 04:32 Basophils % (Manual) 0 % (0.0-1.8) 09/24/18 04:32 Metamyelocytes % 1.0 % 09/24/18 04:32 Myelocytes % 0 % 09/24/18 04:32 Promyelocytes % 0 % 09/24/18 04:32 Blast Cells % 0 % 09/24/18 04:32 Nucleated RBC % Not Reportable 09/24/18 04:32 Seg Neutrophils # 8.6 K/mm3 (1.8-7.7) H 09/27/18 04:33 Seg Neutrophils # Man 9.7 K/mm3 (1.8-7.7) H 09/24/18 04:32 Band Neutrophils # 0.5 K/mm3 09/24/18 04:32 Lymphocytes # (Manual) 1.1 K/mm3 (1.2-5.4) L 09/24/18 04:32 Abs React Lymphs (Man) 0.0 K/mm3 09/24/18 04:32 Monocytes # (Manual) 0.0 K/mm3 (0.0-0.8) 09/24/18 04:32 Eosinophils # (Manual) 0.0 K/mm3 (0.0-0.4) 09/24/18 04:32 Basophils # (Manual) 0.0 K/mm3 (0.0-0.1) 09/24/18 04:32 Metamyelocytes # 0.1 K/mm3 09/24/18 04:32 Myelocytes # 0.0 K/mm3 09/24/18 04:32 Promyelocytes # 0.0 K/mm3 09/24/18 04:32 Blast Cells # 0.0 K/mm3 09/24/18 04:32 WBC Morphology Not Reportable 09/24/18 04:32 Hypersegmented Neuts Not Reportable 09/24/18 04:32 Hyposegmented Neuts Not Reportable 09/24/18 04:32 Hypogranular Neuts Not Reportable 09/24/18 04:32 Smudge Cells Not Reportable 09/24/18 04:32 Toxic Granulation Not Reportable 09/24/18 04:32 Toxic Vacuolation Not Reportable 09/24/18 04:32 Dohle Bodies Not Reportable 09/24/18 04:32 Pelger-Huet Anomaly Not Reportable 09/24/18 04:32 Martha Rods Not Reportable 09/24/18 04:32 Platelet Estimate Appears normal 09/24/18 04:32 Clumped Platelets Not Reportable 09/24/18 04:32 Plt Clumps, EDTA Not Reportable 09/24/18 04:32 Large Platelets Not Reportable 09/24/18 04:32 Giant Platelets Few 09/24/18 04:32 Platelet Satelliting Not Reportable 09/24/18 04:32 Plt Morphology Comment Not Reportable 09/24/18 04:32 RBC Morphology Not Reportable 09/24/18 04:32 Dimorphic RBCs Not Reportable 09/24/18 04:32 Polychromasia Not Reportable 09/24/18 04:32 Hypochromasia Not Reportable 09/24/18 04:32 Poikilocytosis 1+ 09/24/18 04:32 Anisocytosis 1+ 09/24/18 04:32 Microcytosis Not Reportable 09/24/18 04:32 Macrocytosis Not Reportable 09/24/18 04:32 Spherocytes Not Reportable 09/24/18 04:32 Pappenheimer Bodies Not Reportable 09/24/18 04:32 Sickle Cells Not Reportable 09/24/18 04:32 Target Cells Rare 09/24/18 04:32 Tear Drop Cells Not Reportable 09/24/18 04:32 Ovalocytes 1+ 09/24/18 04:32 Stomatocytes Few 09/24/18 04:32 Helmet Cells Few 09/24/18 04:32 [place] Bodies Not Reportable 09/24/18 04:32 [place] Rings Not Reportable 09/24/18 04:32 Hoda Cells Not Reportable 09/24/18 04:32 Bite Cells Not Reportable 09/24/18 04:32 Crenated Cell Not Reportable 09/24/18 04:32 Elliptocytes 1+ 09/24/18 04:32 Acanthocytes (Spur) Not Reportable 09/24/18 04:32 Rouleaux Not Reportable 09/24/18 04:32 Hemoglobin C Crystals Not Reportable 09/24/18 04:32 Schistocytes Not Reportable 09/24/18 04:32 Malaria parasites Not Reportable 09/24/18 04:32 Brandin Bodies Not Reportable 09/24/18 04:32 Hem Pathologist Commnt No 09/24/18 04:32 PT 17.2 Sec. (12.2-14.9) H 09/24/18 04:32 INR 1.32 (0.87-1.13) H 09/24/18 04:32 Sodium 140 mmol/L (137-145) 09/27/18 04:33 Potassium 3.8 mmol/L (3.6-5.0) 09/27/18 04:33 Chloride 102.6 mmol/L (98-107) 09/27/18 04:33 Carbon Dioxide 30 mmol/L (22-30) 09/27/18 04:33 Anion Gap 11 mmol/L 09/27/18 04:33 BUN 7 mg/dL (7-17) 09/27/18 04:33 Creatinine 0.5 mg/dL (0.7-1.2) L 09/27/18 04:33 Estimated GFR > 60 ml/min 09/27/18 04:33 BUN/Creatinine Ratio 14 % 09/27/18 04:33 Glucose 115 mg/dL (65-100) H 09/27/18 04:33 POC Glucose 130 (70-105) H 09/27/18 11:25 Hemoglobin A1c 5.2 % (4-6) 09/17/18 07:27 Lactic Acid 1.60 mmol/L (0.7-2.0) 09/17/18 05:41 Calcium 7.9 mg/dL (8.4-10.2) L 09/27/18 04:33 Magnesium 1.60 mg/dL (1.7-2.3) L 09/27/18 04:33 Total Bilirubin 0.20 mg/dL (0.1-1.2) 09/23/18 04:50 Direct Bilirubin < 0.2 mg/dL (0-0.2) 09/19/18 03:08 Indirect Bilirubin 0.0 mg/dL 09/19/18 03:08 AST 32 units/L (5-40) 09/23/18 04:50 ALT 17 units/L (7-56) 09/23/18 04:50 Alkaline Phosphatase 62 units/L (35-129) 09/23/18 04:50 Total Creatine Kinase 957 units/L (30-135) H 09/18/18 05:35 Total Protein 5.7 g/dL (6.3-8.2) L 09/23/18 04:50 Albumin 2.1 g/dL (3.9-5) L 09/23/18 04:50 Albumin/Globulin Ratio 0.6 % 09/23/18 04:50 Urine Color Lu (Yellow) 09/16/18 17:40 Urine Turbidity Cloudy (Clear) 09/16/18 17:40 Urine pH 5.0 (5.0-7.0) 09/16/18 17:40 Ur Specific [place] 1.019 (1.003-1.030) 09/16/18 17:40 Urine Protein 30 mg/dl mg/dL (Negative) 09/16/18 17:40 Urine Glucose (UA) Neg mg/dL (Negative) 09/16/18 17:40 Urine Ketones Neg mg/dL (Negative) 09/16/18 17:40 Urine Blood Sm (Negative) 09/16/18 17:40 Urine Nitrite Neg (Negative) 09/16/18 17:40 Urine Bilirubin Neg (Negative) 09/16/18 17:40 Urine Urobilinogen 4.0 mg/dL (<2.0) 09/16/18 17:40 Ur Leukocyte Esterase Mod (Negative) 09/16/18 17:40 Urine WBC (Auto) 84.0 /HPF (0.0-6.0) H 09/16/18 17:40 Urine RBC (Auto) 19.0 /HPF (0.0-6.0) 09/16/18 17:40 U Epithel Cells (Auto) 5.0 /HPF (0-13.0) 09/16/18 17:40 Urine Bacteria (Auto) 3+ /HPF (Negative) 09/16/18 17:40 Urine Mucus 3+ /HPF 09/16/18 17:40 Nutrition/Malnutrition Assess - Dietary Evaluation Nutrition/Malnutrition Findings: Nutrition Notes Start: 09/17/18 11:10 Freq: Status: Active Protocol: Document 09/26/18 10:46 SA (Rec: 09/26/18 11:13 SA [id number]) Co-Sign 09/26/18 10:46 LP Nutrition Notes Initial or Follow up Reassessment Current Diagnosis Acute Kidney Injury COPD Hypertension Stroke Other Pertinent Diagnosis Dysphagia, Aphasia, Dementia, UTI, Pneumonia Current Diet Jevity 1.2 at 55ml/hr Labs/Tests BUN: 6 Cr: 0.4 Glu: 106 Ca: 8.1 M.4 Pertinent Medications Reviewed Height 5 ft 5 in Weight 49.8 kg [place] Body Weight (kg) 56.81 BMI 18.2 Subjective/Other Information Per patient nurse, patient TF started running at goal rate of 55ml/hr last night at 2: 00am. Nurse states patient tolerating TF. Percent of energy/protein needs met: 96%/100% Burn Absent Trauma Absent #1 Nutrition Diagnosis Malnutrition Diagnosis Progress(for reassessment Continues documentation) Is patient on ventilator? No Is Patient Ambulatory and/or Out of Bed No REE-([place]confined to bed) 1240.584 Kcal/Kg value to use for calculation 33 Approximate Energy Requirements Using 1643 kcal/Kg Calculation Used for Recommendations Kcal/kg Additional Notes Protein needs: (1.2-1.5 g/kg) (60-75 g/day) Fluid needs: 1 ml/kcal Nutrition Intervention Change Diet Order: Continue current Nutrition Support: Jevity 1.2 at 55 mL/hr Flush 100 mL q 4 hr Kcal 1,584 Protein (gm) 73 Carbohydrates (gm) 223 Fluid (mL) 1,065 Goal #1 Meet at least 75% of kcal and PRO needs via TF Anticipated Discharge Needs: TF Follow-Up By: 10/01/18 Additional Comments F/U: TF
[2018-09-27] MEDS: LOPRESSOR FEEDTUBE SCH ×2 (17:07→21:59)
[2018-09-27] MEDS: LOVENOX SUB-Q SCH (21:59)
[2018-09-28] MEDS: ZOSYN/NS 4.5GM/100ML 4.5 GM/100 ML VIAL IV SCH (05:33)
[2018-09-28 05:47] LABS: Basophils # (Auto) 0.1 K/mm3 (0.0-0.1); Basophils % (Auto) 0.9 % (0.0-1.8); Eosinophils # (Auto) 0.2 K/mm3 (0.0-0.4); Eosinophils % (Auto) 2.6 % (0.0-4.3); Hematocrit 32.3 % (30.3-42.9); Hemoglobin 10.7 gm/dl (10.1-14.3); Lymphocytes # (Auto) 1.8 K/mm3 (1.2-5.4); Lymphocytes % (Auto) 19.3 % (13.4-35.0); Mean Corpuscular HGB Conc 33 % (30-34); Mean Corpuscular Volume 82 fl (79-97); Monocytes # (Auto) 0.9 K/mm3 (0.0-0.8); Platelet Count 603 K/mm3 (140-440); Red Blood Count 3.93 M/mm3 (3.65-5.03); Red Cell Distribution Width 14.5 % (13.2-15.2)
[2018-09-28 06:03] LABS: BUN/Creatinine Ratio 20; Blood Urea Nitrogen 8 mg/dL (7-17); Calcium 8.2 mg/dL (8.4-10.2); Hemolysis Index 3
[2018-09-28] MEDS: PROVENTIL IH SCH ×2 (08:41→21:10)
[2018-09-28] MEDS: LOPRESSOR FEEDTUBE SCH ×2 (09:53→21:05)
[2018-09-28] MEDS: NORVASC PO SCH (09:53)
[2018-09-28] MEDS: PEPCID PO SCH (09:54)
[2018-09-28] MEDS: ZESTRIL FEEDTUBE SCH (09:59)
[2018-09-28] MEDS: SODIUM CHLORIDE FLUSH SYRINGE 10 ML IV SCH ×2 (10:07→21:07)
--- NOTE | 2018-09-28 14:24 | Progress Note ---
Assessment and Plan Assessment and plan: New Acute respiratory failure with hypoxia s/p procedure -likely 2/2 aspiration -CXR showed left lung base opacity -WBC level trended down and patient is afebrile -Zosyn changed to oral Augmentin today Severe dehydration with hypernatremia -resolved Dysphagia with severe protein calorie Malnutrition -s/p peg tube placement on tube feeding Severe sepsis syndrome 2/2 Aspiration PNA -initially completed antibiotics -cont aspiration precautions -blood cultures neg UTI -completed Rocephin -urine culture neg Hyokalemia and Hypomagnesemia -Improved s/p repletion Mild Acute Diverticulitis -resolved h/o CVA with focal deficits -cont fall precautions and supportive care HTN -Controlled on meds Adult FTT with BMI of 18.3 -s/p peg tube placement today Chronic debility -PT/OT following Disp: for possible discharge in am if clinically stable. History Interval history: Pt stated that she's feeling fine when asked how she's doing. No issues repo rted overnight. Hospitalist Physical - Constitutional Vitals: Temp Pulse Resp BP Pulse Ox 98.0 F 80 20 129/66 97 09/28/18 07:30 09/28/18 09:59 09/28/18 08:03 09/28/18 09:59 09/28/18 07:30 General appearance: Present: no acute distress - EENT Eyes: Present: PERRL, EOM intact ENT: hearing intact, clear oral mucosa - Neck Neck: Present: supple - Respiratory Respiratory effort: normal Respiratory: bilateral: rales - Cardiovascular Rhythm: regular Heart Sounds: Present: S1 & S2 - Extremities Extremities: No edema - Abdominal General gastrointestinal: soft, non-tender, normal bowel sounds, other (PEG tube noted) - Neurologic Neurologic: CNII-XII intact Results - Labs CBC & Chem 7: 09/28/18 05:02 09/28/18 05:02 Labs: Laboratory Last Values WBC 9.3 K/mm3 (4.5-11.0) 09/28/18 05:02 RBC 3.93 M/mm3 (3.65-5.03) 09/28/18 05:02 Hgb 10.7 gm/dl (10.1-14.3) 09/28/18 05:02 Hct 32.3 % (30.3-42.9) 09/28/18 05:02 MCV 82 fl (79-97) 09/28/18 05:02 MCH 27 pg (28-32) L 09/28/18 05:02 MCHC 33 % (30-34) 09/28/18 05:02 RDW 14.5 % (13.2-15.2) 09/28/18 05:02 Plt Count 603 K/mm3 (140-440) H 09/28/18 05:02 Lymph % (Auto) 19.3 % (13.4-35.0) 09/28/18 05:02 [place] % (Auto) 10.0 % (0.0-7.3) H 09/28/18 05:02 Eos % (Auto) 2.6 % (0.0-4.3) 09/28/18 05:02 Baso % (Auto) 0.9 % (0.0-1.8) 09/28/18 05:02 Lymph # 1.8 K/mm3 (1.2-5.4) 09/28/18 05:02 [place] # 0.9 K/mm3 (0.0-0.8) H 09/28/18 05:02 Eos # 0.2 K/mm3 (0.0-0.4) 09/28/18 05:02 Baso # 0.1 K/mm3 (0.0-0.1) 09/28/18 05:02 Add Manual Diff Complete 09/24/18 04:32 Total Counted 100 09/24/18 04:32 Seg Neutrophils % 67.2 % (40.0-70.0) 09/28/18 05:02 Seg Neuts % (Manual) 85.0 % (40.0-70.0) H 09/24/18 04:32 Band Neutrophils % 4.0 % 09/24/18 04:32 Lymphocytes % (Manual) 10.0 % (13.4-35.0) L 09/24/18 04:32 Reactive Lymphs % (Man) 0 % 09/24/18 04:32 Monocytes % (Manual) 0 % (0.0-7.3) 09/24/18 04:32 Eosinophils % (Manual) 0 % (0.0-4.3) 09/24/18 04:32 Basophils % (Manual) 0 % (0.0-1.8) 09/24/18 04:32 Metamyelocytes % 1.0 % 09/24/18 04:32 Myelocytes % 0 % 09/24/18 04:32 Promyelocytes % 0 % 09/24/18 04:32 Blast Cells % 0 % 09/24/18 04:32 Nucleated RBC % Not Reportable 09/24/18 04:32 Seg Neutrophils # 6.3 K/mm3 (1.8-7.7) 09/28/18 05:02 Seg Neutrophils # Man 9.7 K/mm3 (1.8-7.7) H 09/24/18 04:32 Band Neutrophils # 0.5 K/mm3 09/24/18 04:32 Lymphocytes # (Manual) 1.1 K/mm3 (1.2-5.4) L 09/24/18 04:32 Abs React Lymphs (Man) 0.0 K/mm3 09/24/18 04:32 Monocytes # (Manual) 0.0 K/mm3 (0.0-0.8) 09/24/18 04:32 Eosinophils # (Manual) 0.0 K/mm3 (0.0-0.4) 09/24/18 04:32 Basophils # (Manual) 0.0 K/mm3 (0.0-0.1) 09/24/18 04:32 Metamyelocytes # 0.1 K/mm3 09/24/18 04:32 Myelocytes # 0.0 K/mm3 09/24/18 04:32 Promyelocytes # 0.0 K/mm3 09/24/18 04:32 Blast Cells # 0.0 K/mm3 09/24/18 04:32 WBC Morphology Not Reportable 09/24/18 04:32 Hypersegmented Neuts Not Reportable 09/24/18 04:32 Hyposegmented Neuts Not Reportable 09/24/18 04:32 Hypogranular Neuts Not Reportable 09/24/18 04:32 Smudge Cells Not Reportable 09/24/18 04:32 Toxic Granulation Not Reportable 09/24/18 04:32 Toxic Vacuolation Not Reportable 09/24/18 04:32 Dohle Bodies Not Reportable 09/24/18 04:32 Pelger-Huet Anomaly Not Reportable 09/24/18 04:32 Martha Rods Not Reportable 09/24/18 04:32 Platelet Estimate Appears normal 09/24/18 04:32 Clumped Platelets Not Reportable 09/24/18 04:32 Plt Clumps, EDTA Not Reportable 09/24/18 04:32 Large Platelets Not Reportable 09/24/18 04:32 Giant Platelets Few 09/24/18 04:32 Platelet Satelliting Not Reportable 09/24/18 04:32 Plt Morphology Comment Not Reportable 09/24/18 04:32 RBC Morphology Not Reportable 09/24/18 04:32 Dimorphic RBCs Not Reportable 09/24/18 04:32 Polychromasia Not Reportable 09/24/18 04:32 Hypochromasia Not Reportable 09/24/18 04:32 Poikilocytosis 1+ 09/24/18 04:32 Anisocytosis 1+ 09/24/18 04:32 Microcytosis Not Reportable 09/24/18 04:32 Macrocytosis Not Reportable 09/24/18 04:32 Spherocytes Not Reportable 09/24/18 04:32 Pappenheimer Bodies Not Reportable 09/24/18 04:32 Sickle Cells Not Reportable 09/24/18 04:32 Target Cells Rare 09/24/18 04:32 Tear Drop Cells Not Reportable 09/24/18 04:32 Ovalocytes 1+ 09/24/18 04:32 Stomatocytes Few 09/24/18 04:32 Helmet Cells Few 09/24/18 04:32 [place] Bodies Not Reportable 09/24/18 04:32 [place] Rings Not Reportable 09/24/18 04:32 [place] Cells Not Reportable 09/24/18 04:32 Bite Cells Not Reportable 09/24/18 04:32 Crenated Cell Not Reportable 09/24/18 04:32 Elliptocytes 1+ 09/24/18 04:32 Acanthocytes (Spur) Not Reportable 09/24/18 04:32 Rouleaux Not Reportable 09/24/18 04:32 Hemoglobin C Crystals Not Reportable 09/24/18 04:32 Schistocytes Not Reportable 09/24/18 04:32 Malaria parasites Not Reportable 09/24/18 04:32 Brandin Bodies Not Reportable 09/24/18 04:32 Hem Pathologist Commnt No 09/24/18 04:32 PT 17.2 Sec. (12.2-14.9) H 09/24/18 04:32 INR 1.32 (0.87-1.13) H 09/24/18 04:32 Sodium 140 mmol/L (137-145) 09/28/18 05:02 Potassium 3.9 mmol/L (3.6-5.0) 09/28/18 05:02 Chloride 102.0 mmol/L (98-107) 09/28/18 05:02 Carbon Dioxide 31 mmol/L (22-30) H 09/28/18 05:02 Anion Gap 11 mmol/L 09/28/18 05:02 BUN 8 mg/dL (7-17) 09/28/18 05:02 Creatinine 0.4 mg/dL (0.7-1.2) L 09/28/18 05:02 Estimated GFR > 60 ml/min 09/28/18 05:02 BUN/Creatinine Ratio 20 % 09/28/18 05:02 Glucose 98 mg/dL (65-100) 09/28/18 05:02 POC Glucose 96 (70-105) 09/28/18 11:43 Hemoglobin A1c 5.2 % (4-6) 09/17/18 07:27 Lactic Acid 1.60 mmol/L (0.7-2.0) 09/17/18 05:41 Calcium 8.2 mg/dL (8.4-10.2) L 09/28/18 05:02 Magnesium 1.80 mg/dL (1.7-2.3) 09/28/18 05:02 Total Bilirubin 0.20 mg/dL (0.1-1.2) 09/23/18 04:50 Direct Bilirubin < 0.2 mg/dL (0-0.2) 09/19/18 03:08 Indirect Bilirubin 0.0 mg/dL 09/19/18 03:08 AST 32 units/L (5-40) 09/23/18 04:50 ALT 17 units/L (7-56) 09/23/18 04:50 Alkaline Phosphatase 62 units/L (35-129) 09/23/18 04:50 Total Creatine Kinase 957 units/L (30-135) H 09/18/18 05:35 Total Protein 5.7 g/dL (6.3-8.2) L 09/23/18 04:50 Albumin 2.1 g/dL (3.9-5) L 09/23/18 04:50 Albumin/Globulin Ratio 0.6 % 09/23/18 04:50 Urine Color Lu (Yellow) 09/16/18 17:40 Urine Turbidity Cloudy (Clear) 09/16/18 17:40 Urine pH 5.0 (5.0-7.0) 09/16/18 17:40 Ur Specific [place] 1.019 (1.003-1.030) 09/16/18 17:40 Urine Protein 30 mg/dl mg/dL (Negative) 09/16/18 17:40 Urine Glucose (UA) Neg mg/dL (Negative) 09/16/18 17:40 Urine Ketones Neg mg/dL (Negative) 09/16/18 17:40 Urine Blood Sm (Negative) 09/16/18 17:40 Urine Nitrite Neg (Negative) 09/16/18 17:40 Urine Bilirubin Neg (Negative) 09/16/18 17:40 Urine Urobilinogen 4.0 mg/dL (<2.0) 09/16/18 17:40 Ur Leukocyte Esterase Mod (Negative) 09/16/18 17:40 Urine WBC (Auto) 84.0 /HPF (0.0-6.0) H 09/16/18 17:40 Urine RBC (Auto) 19.0 /HPF (0.0-6.0) 09/16/18 17:40 U Epithel Cells (Auto) 5.0 /HPF (0-13.0) 09/16/18 17:40 Urine Bacteria (Auto) 3+ /HPF (Negative) 09/16/18 17:40 Urine Mucus 3+ /HPF 09/16/18 17:40 Nutrition/Malnutrition Assess - Dietary Evaluation Nutrition/Malnutrition Findings: Nutrition Notes Start: 09/17/18 11:10 Freq: Status: Active Protocol: Document 09/26/18 10:46 SA (Rec: 09/26/18 11:13 SA [id number]) Co-Sign 09/26/18 10:46 LP Nutrition Notes Initial or Follow up Reassessment Current Diagnosis Acute Kidney Injury COPD Hypertension Stroke Other Pertinent Diagnosis Dysphagia, Aphasia, Dementia, UTI, Pneumonia Current Diet Jevity 1.2 at 55ml/hr Labs/Tests BUN: 6 Cr: 0.4 Glu: 106 Ca: 8.1 M.4 Pertinent Medications Reviewed Height 5 ft 5 in Weight 49.8 kg [place] Body Weight (kg) 56.81 BMI 18.2 Subjective/Other Information Per patient nurse, patient TF started running at goal rate of 55ml/hr last night at 2: 00am. Nurse states patient tolerating TF. Percent of energy/protein needs met: 96%/100% Burn Absent Trauma Absent #1 Nutrition Diagnosis Malnutrition Diagnosis Progress(for reassessment Continues documentation) Is patient on ventilator? No Is Patient Ambulatory and/or Out of Bed No REE-([facility]-confined to bed) 1240.584 Kcal/Kg value to use for calculation 33 Approximate Energy Requirements Using 1643 kcal/Kg Calculation Used for Recommendations Kcal/kg Additional Notes Protein needs: (1.2-1.5 g/kg) (60-75 g/day) Fluid needs: 1 ml/kcal Nutrition Intervention Change Diet Order: Continue current Nutrition Support: Jevity 1.2 at 55 mL/hr Flush 100 mL q 4 hr Kcal 1,584 Protein (gm) 73 Carbohydrates (gm) 223 Fluid (mL) 1,065 Goal #1 Meet at least 75% of kcal and PRO needs via TF Anticipated Discharge Needs: TF Follow-Up By: 10/01/18 Additional Comments F/U: TF
[2018-09-28] MEDS: AUGMENTIN 875 MG PO SCH (21:05)
[2018-09-28] MEDS: LOVENOX SUB-Q SCH (21:07)
[2018-09-29 05:39] LABS: Basophils # (Auto) 0.1 K/mm3 (0.0-0.1); Basophils % (Auto) 1.3 % (0.0-1.8); Eosinophils # (Auto) 0.2 K/mm3 (0.0-0.4); Eosinophils % (Auto) 3.4 % (0.0-4.3); Hematocrit 32.1 % (30.3-42.9); Hemoglobin 10.6 gm/dl (10.1-14.3); Lymphocytes # (Auto) 1.9 K/mm3 (1.2-5.4); Lymphocytes % (Auto) 26.7 % (13.4-35.0); Mean Corpuscular HGB Conc 33 % (30-34); Mean Corpuscular Volume 83 fl (79-97); Monocytes # (Auto) 0.8 K/mm3 (0.0-0.8); Monocytes % (Auto) 11.1 % (0.0-7.3); Platelet Count 612 K/mm3 (140-440); Red Blood Count 3.89 M/mm3 (3.65-5.03); Red Cell Distribution Width 14.5 % (13.2-15.2)
[2018-09-29 05:53] LABS: BUN/Creatinine Ratio 23; Blood Urea Nitrogen 9 mg/dL (7-17); Calcium 8.3 mg/dL (8.4-10.2); Hemolysis Index 2
[2018-09-29] MEDS: PROVENTIL IH SCH ×3 (06:56→20:00)
[2018-09-29] MEDS: AUGMENTIN 875 MG PO SCH ×2 (10:39→22:24)
[2018-09-29] MEDS: LOPRESSOR FEEDTUBE SCH ×2 (10:39→22:24)
[2018-09-29] MEDS: PEPCID PO SCH (10:39)
[2018-09-29] MEDS: NORVASC PO SCH (10:40)
[2018-09-29] MEDS: ZESTRIL FEEDTUBE SCH (10:40)
[2018-09-29] MEDS: SODIUM CHLORIDE FLUSH SYRINGE 10 ML IV SCH ×2 (10:41→22:25)
--- NOTE | 2018-09-29 11:08 | Discharge Summary ---
Providers - Providers Date of Admission: 09/16/18 19:32 Date of discharge: 09/29/18 Attending physician: SHAKILA NARAYAN 09/17/18 08:47 Consult to Physician [CONS] Routine Comment: Consulting Provider: ROYCE HUNTER Physician Instructions: Reason For Exam: ACUTE CYSTITS 09/17/18 09:26 Consult to Physician [CONS] Routine Comment: Consulting Provider: ANIKET BARBOSA Physician Instructions: Reason For Exam: severe sepsis, ?gallbladder disease 09/17/18 15:25 Speech Therapy Evaluation and Treat [CONS] Routine Reason For Exam: aspiration 09/19/18 15:26 Physical Therapy Evaluation and Treat [CONS] Routine Comment: Reason For Exam: physical debility 09/21/18 18:36 Consult to Physician [CONS] Routine Comment: SALAS Consulting Provider: SAGRARIO AVERY Physician Instructions: CONSULT WAS CALLED TO Reason For Exam: peg tube placement 09/21/18 19:26 Consult to Dietitian/Nutrition [CONS] Routine Physician Instructions: Reason For Exam: dobhoff placement Reason for Consult: Write/Manage Tube Feeding 09/23/18 08:25 Speech Therapy Evaluation and Treat [CONS] Stat Reason For Exam: Swallowing concerns/wet sounds after eating 09/24/18 11:35 Consult to Dietitian/Nutrition [CONS] Routine Physician Instructions: Reason For Exam: Reason for Consult: Write/Manage Tube Feeding Primary care physician: [facility] Hospitalization Condition: Fair Pertinent studies: CT abd/pelvis Procedures: PEG tube placement Hospital course: [id number] female with the history of stroke and hypertension admitted with complaints of weakness nausea or vomiting and was noted to have a dense left lower lobe infiltrate as well as UTI and dehydration Patient subsequently had a PEG tube placement ID and GI signed off on the patient Family refused subacute rehabilitation placement Patient is medically stable for discharge home PEG tube feedings have been arranged per discussion with telehealth case manager Is medically stable for discharge I tried to call patient's niece to find out if the patient needs any refills on home medications but there is no response Assessment: New Acute respiratory failure with hypoxia s/p procedure -likely 2/2 aspiration -CXR showed left lung base opacity Patient received 10 days of antibiotic Severe dehydration with hypernatremia -resolved Dysphagia with severe protein calorie Malnutrition -s/p peg tube placement on tube feeding Severe sepsis syndrome 2/2 Aspiration PNA -initially completed antibiotics -cont aspiration precautions -blood cultures neg UTI -completed Rocephin -urine culture neg Hyokalemia and Hypomagnesemia -Improved s/p repletion Mild Acute Diverticulitis -resolved h/o CVA with focal deficits -cont fall precautions and supportive care HTN -Controlled on meds Adult FTT with BMI of 18.3 -s/p peg tube placement today Chronic debility -PT/OT following Disposition: DC-01 TO HOME OR SELFCARE Time spent for discharge: 40 minutes Core Measure Documentation - Palliative Care Palliative Care/ Comfort Measures: Not Applicable - Core Measures Any of the following diagnoses?: none Exam - Constitutional Vitals: Temp Pulse Resp BP Pulse Ox 98.2 F 63 20 134/66 94 09/29/18 08:05 09/29/18 10:40 09/29/18 08:05 09/29/18 10:40 09/29/18 08:35 General appearance: Present: no acute distress, other (malnourished) - EENT Eyes: Present: PERRL, EOM intact ENT: hearing intact, clear oral mucosa - Neck Neck: Present: supple, normal ROM. Absent: masses or JVD - Respiratory Respiratory effort: normal Respiratory: bilateral: CTA, diminished - Cardiovascular Rhythm: regular Heart Sounds: Present: S1 & S2 - Extremities Extremities: No edema - Abdominal General gastrointestinal: Present: soft, non-tender. Absent: hepatomegaly, splenomegaly (PEG tube site clean) - Rectal Rectal Exam: deferred - Integumentary Integumentary: Present: clear - Musculoskeletal Musculoskeletal: right sided weakness - Psychiatric Psychiatric: other (flat affect) Plan Activity: up only with assistance, fall precautions Weight Bearing Status: Weight Bear as Tolerated Diet: other (tube feeding) [facility] Care Provider] - 3-5 Days
[2018-09-29] MEDS: LOVENOX SUB-Q SCH (22:24)
[2018-09-30] MEDS: PROVENTIL IH SCH ×2 (08:20→20:42)
[2018-09-30] MEDS: AUGMENTIN 875 MG PO SCH ×2 (09:47→23:30)
[2018-09-30] MEDS: NORVASC PO SCH (09:48)
[2018-09-30] MEDS: LOPRESSOR FEEDTUBE SCH ×2 (09:48→23:30)
[2018-09-30] MEDS: ZESTRIL FEEDTUBE SCH (09:48)
[2018-09-30] MEDS: PEPCID PO SCH (09:48)
[2018-09-30] MEDS: SODIUM CHLORIDE FLUSH SYRINGE 10 ML IV SCH ×2 (09:49→23:31)
--- NOTE | 2018-09-30 18:15 | Event Note ---
Date: 09/30/18 The patient was initially prepared for discharge yesterday However could not live due to technical reasons Today patient is comfortable in no new complaints No new events reported by nursing Vital signs noted Physical examination no new changes Patient is hemodynamically and clinically stable for discharge Home with home health to take Plan of care is reviewed with the patient and her nurse Refer to discharge summary of 09/29/18 for all the other details
[2018-09-30] MEDS: LOVENOX SUB-Q SCH (23:30)
[2018-10-01 07:56] VITALS: BP 124/69
[2018-10-01] MEDS: PROVENTIL IH SCH (08:03)
[2018-10-01] MEDS: AUGMENTIN 875 MG PO SCH (09:55)
[2018-10-01] MEDS: LOPRESSOR FEEDTUBE SCH (09:55)
[2018-10-01] MEDS: ZESTRIL FEEDTUBE SCH (09:56)
[2018-10-01] MEDS: NORVASC PO SCH (09:56)
[2018-10-01] MEDS: PEPCID PO SCH (09:56)
[2018-10-01] MEDS: SODIUM CHLORIDE FLUSH SYRINGE 10 ML IV SCH ×2 (09:57)
== END 2018-10-01 12:52 | disposition home or self-care (01) | DRG 871 ==
LOC: ED 17:01 → 2B-ACE 19:32
PROVIDERS: ADMIT Internal Medicine; ATTEND Internal Medicine
PROC: 0DH63UZ Insertion of Feeding Device into Stomach, Percutaneous Approach (ICD-10-PCS; principal; 2018-09-24)
DX: A41.9 Sepsis, unspecified organism (principal); E43 Unspecified severe protein-calorie malnutrition; J69.0 Pneumonitis due to inhalation of food and vomit; N17.0 Acute kidney failure with tubular necrosis; J96.00 Acute respiratory failure, unspecified whether with hypoxia or hypercapnia; E87.0 Hyperosmolality and hypernatremia; N13.6 Pyonephrosis; M62.82 Rhabdomyolysis; K57.32 Diverticulitis of large intestine without perforation or abscess without bleeding; Z68.1 Body mass index [BMI] 19.9 or less, adult; R65.20 Severe sepsis without septic shock; E86.0 Dehydration; E83.42 Hypomagnesemia; J44.9 Chronic obstructive pulmonary disease, unspecified; F03.90 Unspecified dementia, unspecified severity, without behavioral disturbance, psychotic disturbance, mood disturbance, and anxiety; K80.20 Calculus of gallbladder without cholecystitis without obstruction; R62.7 Adult failure to thrive; I69.320 Aphasia following cerebral infarction; Z79.51 Long term (current) use of inhaled steroids; Z87.891 Personal history of nicotine dependence
CPT/HCPCS: 36415; 71045; 74176; 74230; 76705; 80048; 80053; 80076; 81001; 82140; 82550; 82962; 83036; 83735; 84295; 85007; 85025; 85027; 85610; 87040; 87086; 94640; 94760; 96365; G0378; J0456; J0690; J0696; J1650; J2543; J2704; J3475; J3480; J7030; J7042; J7050; J7070